=== PATIENT | male | born 1985 | race Two or more races ===

== ENCOUNTER 2020-05-27 22:06 | Emergency (ER) | payer OTHER, SELFPAY ==
[2020-05-27 22:27] VITALS: BP 156/98; PULSE 76; RESP 16; TEMP 36.3; O2SAT 100; BMI 26.4
--- NOTE | 2020-05-27 23:42 | ECG_ITS ---
Test Reason : CHEST PAIN Blood Pressure : / mmHG Vent. Rate : 069 BPM Atrial Rate : 069 BPM P-R Int : 184 ms QRS Dur : 092 ms QT Int : 388 ms P-R-T Axes : 055 063 063 degrees QTc Int : 415 ms Normal sinus rhythm Possible Left atrial enlargement Possible Inferior infarct (cited on or before 07-MAR-2020) Abnormal ECG When compared with ECG of 07-MAR-2020 12:46, No significant change was found Referred By: Melissa Littlejohn Electronically Signed By:WOOD VERGARA MD
--- NOTE | 2020-05-27 23:42 | XR_ITS ---
EXAMINATION: XR CHEST CLINICAL INFORMATION: Dizziness and elevated blood pressure COMPARISON: 07/06/2017 TECHNIQUE: 2 views of the chest were obtained. FINDINGS: The lungs are clear with no focal consolidation. No evidence of pneumothorax, pulmonary edema, or pleural effusions. The cardiomediastinal silhouette is unremarkable. No acute osseous findings. XR/XR chest 2V IMPRESSION: No acute cardiopulmonary findings.
--- NOTE | 2020-05-27 23:43 | CT_ITS ---
EXAMINATION: CT HEAD WITHOUT CONTRAST CLINICAL INFORMATION: Dizziness and elevated blood pressure COMPARISON: 03/05/2016 TECHNIQUE: Contiguous axial imaging was performed from the skull base to vertex without intravenous administration of contrast. This CT examination was performed using dose optimization techniques as appropriate, variously including the following: *Automated exposure control *Adjustment of mA and/or kV according to patient size (this includes techniques or standardized protocols for targeted exams where dose is matched to indication/reason for exam; i.e. extremities or head) *Use of iterative reconstruction technique DLP: 723 mGy-cm FINDINGS: There is no evidence of acute intracranial hemorrhage or territorial infarction. No abnormal mass effect or midline shift is seen. Barrientos to white matter differentiation is well preserved. No extra-axial fluid collections are identified. The ventricles are normal in size. Redemonstrated suspected arachnoid cyst in the posterior fossa. The osseous structures and soft tissues are normal. The mastoid air cells and visualized portions of the paranasal sinuses are well aerated. CT/CT head/brain wo con IMPRESSION: No acute intracranial pathology.
[2020-05-28] VITALS: BP 156/98; PULSE 76; RESP 16; TEMP 36.3; O2SAT 100
--- NOTE | 2020-05-28 00:11 | ED_ITS ---
HPI - General Adult General Chief complaint: General Medical Stated complaint: dizziness Time Seen by Provider: 05/27/20 23:35 Source: patient Mode of arrival: ambulatory Limitations: no limitations History of Present Illness HPI narrative: 34yoM c No Sig PMHx per patient presenting to the ED c c/o high blood pressure 160's/100's, dizziness, palpitations and left arm cramping x 3 days after eating salty greasy food of chicken and fries. Reports the Dizziness is worse when laying down to sitting or standing position. Denies headaches, changes in vision, CP/SOB, cough, RODGERS, abd pain, back pain, extremity swelling, calf tenderness or any other symptoms complaints or concerns at this time. Related Data Allergies Allergy/AdvReac Type Severity Reaction Status Date / Time No Known Allergies Allergy Unverified 03/13/20 17:00 [No Known Allergies*] Review of Systems Review of Systems: Constitutional : No Fever, No Chills, No Night Sweats, No Fatigue, No Malaise Eyes: No Eye Pain, No Swelling, No Redness, No Foreign Body, No Discharge, No Vision Changes Cardiovascular : + CP, No SOB, no Dyspnea on Exertion, No Orthopnea, No Edema, No extremity swelling, No Palpitations Respiratory : No Cough, No Sputum, No Wheezing, No Dyspnea Gastrointestinal : No Nausea, No Vomiting, No Diarrhea, No abdominal Pain Genitourinary : No Dysuria Musculoskeletal : No joint pain, No Myalgias, No Joint Swelling Skin : No Skin Lesions, No rash Neuro : No Weakness, No Numbness, No Paresthesias, No Loss of Consciousness, + Dizziness, No Headache Heme/Lymph: No Lymphadenopathy Yes all other systems are reviewed and are negative [facility] Past Medical History Attestation statement: The following information was validated with the patient. Medical History No known health problems Social History Social History Alcohol intake: unknown Smoking Status: Unknown if ever smoked Use of substances other than those prescribed or required for medical reasons: Unknown Advance Directives: No Advance Directives Information Provided: No Physical Exam Vital Signs: Vital Signs: Last Vital Signs Temp 97.4 F 05/28/20 00:00 Pulse 76 05/28/20 01:28 Resp 16 05/28/20 00:00 BP 139/92 H 05/28/20 01:28 Pulse Ox 100 05/28/20 00:00 Body Mass Index 26.4 vital signs have been reviewed as normal and appeared to be correct. Blood pressure normal. Heart rate normal. Respiration rate normal. Temperature normal. Oxygen saturation normal. Appearance: Alert. Oriented X3. No acute distress. Head: Normal external exam. Normocephalic. Atraumatic. Able to rotate head bilaterally. Eyes: PERRLA. EOMI. No nystagmus noted. Conjunctiva and sclera normal. Eyelids normal. Corneal reflex normal. ENT: Hearing normal. Pharynx normal. Uvula midline. tongue midline. Moist mucous membranes. Neck: Normal inspection. Neck supple. FROM. No adenopathy. No meningeal signs. CVS: Normal heart rate and rhythm. Heart sound normal. No murmurs noted. Pulses normal throughout. Respiratory: No respiratory distress. Painless inspiration. Breath sounds normal. No wheezes/rales/rhonchi noted. Chest nontender. No accessory muscle usage noted or decreased air movement noted. Abdomen: Soft and nontender. Bowel sounds normal in all 4 quadrants. No distention noted. No organomegaly noted. No visible injury noted. Back: Full range of motion noted. Skin: Skin warm and dry. Normal skin color. Normal skin turgor. No rashes/lesio ns/lacerations noted. Extremities: No lower extremity edema. Extremities exhibit normal range of mot ion. Extremities nontender. Able to shrug shoulders bilaterally and keep up against resistance. Neuro: Oriented X 3. No motor deficit. No sensory deficit. Reflexes normal. Moving all extremities. No focal motor deficits. Cranial nerves II-XI intact bilaterally. Facial strength normal. Normal cognition. Speech normal. Gait normal. Strength 5/5 throughout. No pronator drift. No tremor noted. No fasciculations noted. Muscle tone normal throughout. No asterixis noted. [id number] test normal. Heel to carmona test normal. Tandem gait normal. Does not sway with eyes open. Romberg test negative. Rapid alternating movement upper extremity normal. Rapid alternating movement lower extremity normal. No rigidity noted. NIHSS score 0. Course Course Course Narrative: 23:43pm - 34yoM c No Sig PMHx per patient presenting to the ED c c/o high blood pressure 160's/100's, dizziness, palpitations and left arm cramping x 3 days after eating salty greasy food of chicken and fries. - Concern for CVA vs ACS vs uncontrolled new onset HTN. - Plan: Labs, CT scan of brain, EKG, CXR, orthostatic vitals then Re-evaluate. Reevaluation(s) Reevaluation #1: all labs within normal limits. EKG normal sinus rhythm no acute ischemic changes noted. CT scan of brain within normal limits no acute processes noted. Chest x-ray within normal limits no acute processes noted. Patient's blood pressure at this time is 139/92. I explained to the patient that he needs to follow up with primary care provider tomorrow for recheck blood pressure and possibly his primary care provider starting him on blood pressure medication. Along with instructions to return if any new or worsening symptoms. Patient understands agrees with this plan. Time: 01:30 Medical Decision Making Lab Data Result diagrams: 05/28/20 00:15 05/28/20 00:15 Labs: Lab Results 05/28/20 05/28/20 05/28/20 Range/Units 00:15 00:15 00:15 WBC 6.5 (4.8-10.8) X10*3/uL RBC 4.78 (4.60-5.80) X10*6/uL Hgb 15.2 (14.0-18.0) g/dl Hct 43.9 (42-52) % MCV 91.8 (80-98) fL MCH 31.8 (27.0-33.0) pg MCHC 34.6 (31.0-36.0) g/dl RDW 12.3 (11.0-16.0) % Plt Count 260 (160-400) X10*3/uL MPV 10.0 (9.4-12.4) fL Immature Gran % (Auto) 0.2 (0.0-0.4) % Neut % (Auto) 48.0 (45-73) % Lymph % (Auto) 42.6 H (20-40) % [place] % (Auto) 6.7 (2-11) % Eos % (Auto) 1.9 (0-4) % Baso % (Auto) 0.6 (0-2) % Lymph # (Auto) 2.8 (1.2-4.9) X10*3/uL [place] # (Auto) 0.4 (0.1-1.2) X10*3/uL Eos # (Auto) 0.1 (0.0-0.4) X10*3/uL Baso # (Auto) 0.0 (0.0-0.2) X10*3/uL Abs Immat Gran (auto) 0.01 (0.00-0.03) X10*3/uL Absolute Neuts (auto) 3.1 (2.0-8.3) X10*3/uL Absolute Nucleated RBC 0.000 (0.0-0.012) X10*3/uL Nucleated RBC % (auto) 0.0 (0.0-0.2) /100WBC PT 12.7 (10.8-13.0) SEC INR 1.1 (0.9-1.1) D-Dimer < 200 NG/ML Sodium 140 (135-145) mmol/L Potassium 3.8 (3.3-5.1) mmol/l Chloride 104 (96-108) mmol/L Carbon Dioxide 27 (22-29) mmol/L Anion Gap 13 (12-20) BUN 9 (9-16) mg/dL Creatinine 0.79 (0.5-1.4) mg/dL Estim Creat Clear Calc 137.6 Estimated GFR > 60 Random Glucose 107 (60-115) mg/dL Calcium 9.2 (8.4-10.2) mg/dL Magnesium 2.1 (1.6-2.6) mg/dL Total Bilirubin 0.9 (0.0-1.0) mg/dL Direct Bilirubin 0.3 (0.0-0.5) mg/dL AST 26 (5-37) U/L ALT 30 (0-40) U/L Alkaline Phosphatase 87 (39-117) U/L Troponin I High Sens (<3.5-35.0) ng/L Total Protein 7.2 (6.5-8.0) g/dL Albumin 4.6 (3.5-5.0) g/dL 05/28/20 Range/Units 00:15 WBC (4.8-10.8) X10*3/uL RBC (4.60-5.80) X10*6/uL Hgb (14.0-18.0) g/dl Hct (42-52) % MCV (80-98) fL MCH (27.0-33.0) pg MCHC (31.0-36.0) g/dl RDW (11.0-16.0) % Plt Count (160-400) X10*3/uL MPV (9.4-12.4) fL Immature Gran % (Auto) (0.0-0.4) % Neut % (Auto) (45-73) % Lymph % (Auto) (20-40) % [place] % (Auto) (2-11) % Eos % (Auto) (0-4) % Baso % (Auto) (0-2) % Lymph # (Auto) (1.2-4.9) X10*3/uL [place] # (Auto) (0.1-1.2) X10*3/uL Eos # (Auto) (0.0-0.4) X10*3/uL Baso # (Auto) (0.0-0.2) X10*3/uL Abs Immat Gran (auto) (0.00-0.03) X10*3/uL Absolute Neuts (auto) (2.0-8.3) X10*3/uL Absolute Nucleated RBC (0.0-0.012) X10*3/uL Nucleated RBC % (auto) (0.0-0.2) /100WBC PT (10.8-13.0) SEC INR (0.9-1.1) D-Dimer NG/ML Sodium (135-145) mmol/L Potassium (3.3-5.1) mmol/l Chloride (96-108) mmol/L Carbon Dioxide (22-29) mmol/L Anion Gap (12-20) BUN (9-16) mg/dL Creatinine (0.5-1.4) mg/dL Estim Creat Clear Calc Estimated GFR Random Glucose (60-115) mg/dL Calcium (8.4-10.2) mg/dL Magnesium (1.6-2.6) mg/dL Total Bilirubin (0.0-1.0) mg/dL Direct Bilirubin (0.0-0.5) mg/dL AST (5-37) U/L ALT (0-40) U/L Alkaline Phosphatase (39-117) U/L Troponin I High Sens < 3.5 (<3.5-35.0) ng/L Total Protein (6.5-8.0) g/dL Albumin (3.5-5.0) g/dL Imaging Data Chest x-ray: Attestation: I personally reviewed and interpreted this imaging study as follows: Radiologist's impression: IMPRESSION: No acute cardiopulmonary findings. CT scan - head: Attestation: I personally reviewed and interpreted this imaging study as follows: Radiologist's impression: IMPRESSION: No acute intracranial pathology. ECG Data Attestation: I personally reviewed and interpreted this ECG as follows: Interpretation: Normal sinus rhythm with a ventricular rate of 69 with left atrial enlargement nonspecific ST changes. No acute ischemic changes noted. Similar when compared to prior on 03/07/2020 Discharge Plan Discharge Clinical Impression: Hypertension Patient Disposition: Home, Self-Care Instructions: Heart Healthy Diet (ED), Hypertension (ED) Referrals: Kelsi Huddleston MD [Primary Care Provider] - 1 day ( for recheck blood pressure and possibly starting blood pressure medication) Print Language: Afghan
[2020-05-28 00:24] LABS: MANUAL DIFF FLAG NO
[2020-05-28 00:28] LABS: Basophils Percent Auto 0.6 % (0-2); Eosinophils Absolute Auto 0.1 X10*3/uL (0.0-0.4); Eosinophils Percent Auto 1.9 % (0-4); Hematocrit 43.9 % (42-52); Hemoglobin 15.2 g/dl (14.0-18.0); Imm Gran Abs Auto 0.01 X10*3/uL (0.00-0.03); Imm Gran Pct Auto 0.2 % (0.0-0.4); Lymphocytes Absolute Auto 2.8 X10*3/uL (1.2-4.9); Lymphocytes Percent Auto 42.6 % (20-40); Mean Corpuscular HGB Conc 34.6 g/dl (31.0-36.0); Mean Corpuscular Hemoglobin 31.8 pg (27.0-33.0); Mean Corpuscular Volume 91.8 fL (80-98); Monocytes Absolute Auto 0.4 X10*3/uL (0.1-1.2); Monocytes Percent Auto 6.7 % (2-11); Neutrophils Absolute Auto 3.1 X10*3/uL (2.0-8.3); Platelet Count 260 X10*3/uL (160-400); Red Blood Count 4.78 X10*6/uL (4.60-5.80); Red Cell Distribution Width 12.3 % (11.0-16.0); White Blood Count 6.5 X10*3/uL (4.8-10.8)
[2020-05-28 00:58] VITALS: BP 136/90; PULSE 68
[2020-05-28 01:03] LABS: Alanine Aminotransferase 30 U/L (0-40); Albumin Level 4.6 g/dL (3.5-5.0); Alkaline Phosphatase 87 U/L (39-117); Anion Gap 13 (12-20); Aspartate Amino Transferase 26 U/L (5-37); Bilirubin Direct 0.3 mg/dL (0.0-0.5); Bilirubin Total 0.9 mg/dL (0.0-1.0); Blood Urea Nitrogen 9 mg/dL (9-16); Calcium 9.2 mg/dL (8.4-10.2); Carbon Dioxide 27 mmol/L (22-29); Chloride 104 mmol/L (96-108); Creatinine Clr Calc Pharmacy 137.6; Estimated Glomerular Filt Rate > 60; Glucose Random 107 mg/dL (60-115); Magnesium 2.1 mg/dL (1.6-2.6); Potassium 3.8 mmol/l (3.3-5.1); Sodium 140 mmol/L (135-145); Total Protein 7.2 g/dL (6.5-8.0)
[2020-05-28 01:04] LABS: INTERNATIONAL NORM RATIO 1.1 (0.9-1.1); Prothrombin Time 12.7 SEC (10.8-13.0)
[2020-05-28 01:05] LABS: Troponin-I High Sensitivity < 3.5 ng/L (<3.5-35.0)
[2020-05-28 01:13] LABS: D Dimer < 200 NG/ML
[2020-05-28 01:27] VITALS: BP 144/99; PULSE 70
[2020-05-28 01:28] VITALS: BP 139/92; PULSE 76
== END 2020-05-28 01:59 | disposition home or self-care (01) ==
PROVIDERS: Physician Assistant Medical; Emergency Provider Student in an Organized Health Care Education/Training Program; PCP Internal Medicine
DX: I10 Essential (primary) hypertension (principal); R42 Dizziness and giddiness
CPT/HCPCS: 36415; 70450; 71046; 80048; 80076; 83735; 84484; 85025; 85379; 85610; 93005; 99284

== ENCOUNTER 2020-07-02 22:32 | Emergency (ER) | payer OTHER, SELFPAY ==
[2020-07-02 23:57] VITALS: BP 155/100; PULSE 75; RESP 18; TEMP 36.6; O2SAT 99
--- NOTE | 2020-07-03 | ECG_ITS ---
Test Reason : CHEST PAIN Blood Pressure : / mmHG Vent. Rate : 071 BPM Atrial Rate : 071 BPM P-R Int : 162 ms QRS Dur : 090 ms QT Int : 396 ms P-R-T Axes : -02 053 043 degrees QTc Int : 430 ms Normal sinus rhythm Possible Inferior infarct (cited on or before 07-MAR-2020) Abnormal ECG When compared with ECG of 28-MAY-2020 00:47, No significant change was found Referred By: Luli Thomas Electronically Signed By:Quan Gannon
[2020-07-03 02:26] VITALS: BP 146/100; PULSE 74; RESP 16; TEMP 36.5; O2SAT 98; BMI 24.5
--- NOTE | 2020-07-03 02:55 | XR_ITS ---
EXAMINATION: XR CHEST CLINICAL INFORMATION: Chest pain COMPARISON: 05/27/2020 TECHNIQUE: Frontal view of the chest was obtained. FINDINGS: Cardiac leads overlie the chest. The lungs are well expanded. There is no focal consolidation, edema, or effusion. No pneumothorax. The cardiomediastinal silhouette is within normal limits. No acute osseous abnormality. XR/XR chest 1V IMPRESSION: Clear lungs.
[2020-07-03] MEDS: Lidocaine HCl Viscous 2 % 15 ML SOLUTION 10 ML MUCOUS MEM (03:06)
[2020-07-03] MEDS: Magnesium Hydrox/Alum Hydrox 30 ML ORAL.SUSP PO ×2 (03:06)
--- NOTE | 2020-07-03 03:51 | PC.NURSE ---
pt up to restroom for urine sample to lab. Pt was resting in stretcher, wakes to verbal stimuli, respirations easy, n/l. skin w/d.
--- NOTE | 2020-07-03 04:22 | ED_ITS ---
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 Patient denies any associated symptoms such as dizziness, nausea, diaphoresis during these episodes. Otherwise, he denies fevers, chills, shortness of breath, GI symptoms and denies any history of acid reflux. Patient is currently asymptomatic. Related Data Allergies Allergy/AdvReac Type Severity Reaction Status Date / Time No Known Allergies Allergy Unverified 03/13/20 17:00 [No Known Allergies*] Review of Systems Review of Systems: Pertinent positives and negatives as stated in HPI 10 point review systems is otherwise negative. [facility] Past Medical History Source: nursing notes reviewed Medical History No known health problems Social History Social History Alcohol intake: unknown Smoking Status: Unknown if ever smoked Advance Directives: No Advance Directives Information Provided: No Physical Exam Vital Signs: Vital Signs: Last Vital Signs Temp 97.7 F 07/03/20 02:26 Pulse 74 07/03/20 02:26 Resp 16 07/03/20 02:26 BP 146/100 H 07/03/20 02:26 Pulse Ox 98 07/03/20 02:26 Body Mass Index 24.5 VITAL SIGNS: Reviewed. GENERAL: Well developed, well nourished, in no acute distress. OROPHARYNX: no oral lesions noted, posterior pharynx clear NECK: Supple, no adenopathy LUNGS: Normal breath sounds. No adventitious sounds or accessory muscle use. SpO2<98> CARDIOVASCULAR: Regular rate and rhythm without noted murmurs, no JVD or lower extremity edema. ABDOMEN: Soft, non-tender, non-distended with bowel sounds. No rigidity. No guarding. No palpable masses or hernias noted NEUROLOGIC: Alert and oriented x 4. Strength and sensation to light touch were grossly intact x 4. Course Course Course Narrative: This is a 34-year-old male with history and clinical presentation most consistent with likely neuropathy associated with extremity position while working and possible costochondritis but will rule out cardiopulmonary etiologies. On review of all investigations there are no acute findings to better explain patient's symptoms. All results findings were discussed with him at bedside and he was encouraged to continue follow-up with his primary care provider. MDM - Chest Pain Lab Data Result diagrams: 07/03/20 04:03 07/03/20 04:03 Labs: Lab Results 07/03/20 07/03/20 07/03/20 Range/Units 03:55 03:55 04:03 WBC 6.4 (4.8-10.8) X10*3/uL RBC 5.12 (4.60-5.80) X10*6/uL Hgb 16.3 (14.0-18.0) g/dl Hct 48.0 (42-52) % MCV 93.8 (80-98) fL MCH 31.8 (27.0-33.0) pg MCHC 34.0 (31.0-36.0) g/dl RDW 12.0 (11.0-16.0) % Plt Count 269 (160-400) X10*3/uL MPV 10.1 (9.4-12.4) fL Immature Gran % (Auto) 0.2 (0.0-0.4) % Neut % (Auto) 48.7 (45-73) % Lymph % (Auto) 42.4 H (20-40) % [place] % (Auto) 6.0 (2-11) % Eos % (Auto) 1.9 (0-4) % Baso % (Auto) 0.8 (0-2) % Lymph # (Auto) 2.7 (1.2-4.9) X10*3/uL [place] # (Auto) 0.4 (0.1-1.2) X10*3/uL Eos # (Auto) 0.1 (0.0-0.4) X10*3/uL Baso # (Auto) 0.1 (0.0-0.2) X10*3/uL Abs Immat Gran (auto) 0.01 (0.00-0.03) X10*3/uL Absolute Neuts (auto) 3.1 (2.0-8.3) X10*3/uL Absolute Nucleated RBC 0.000 (0.0-0.012) X10*3/uL Nucleated RBC % (auto) 0.0 (0.0-0.2) /100WBC Sodium (135-145) mmol/L Potassium (3.3-5.1) mmol/l Chloride (96-108) mmol/L Carbon Dioxide (22-29) mmol/L Anion Gap (12-20) BUN (9-16) mg/dL Creatinine (0.5-1.4) mg/dL Estim Creat Clear Calc Estimated GFR Random Glucose (60-115) mg/dL Calcium (8.4-10.2) mg/dL Total Bilirubin (0.0-1.0) mg/dL AST (5-37) U/L ALT (0-40) U/L Alkaline Phosphatase (39-117) U/L Troponin I High Sens (<3.5-35.0) ng/L Total Protein (6.5-8.0) g/dL Albumin (3.5-5.0) g/dL Lipase (8-78) U/L Urine Color DARK YELLOW Urine Appearance CLEAR Urine pH 6.5 (5.0-8.0) Ur Specific [place] 1.025 (1.005-1.025) Urine Protein NEG (NEG-TRACE) MG/DL Urine Glucose (UA) NEG (NEG) MG/DL Urine Ketones NEG (NEG) MG/DL Urine Blood NEG (NEG) Urine Nitrite NEG (NEG) Ur Leukocyte Esterase NEG (NEG) Urine Opiates Screen Not Detected (Not Detect) Ur Barbiturates Screen Not Detected (Not Detect) Ur Phencyclidine Scrn Not Detected (Not Detect) Ur Amphetamines Screen Not Detected (Not Detect) U Benzodiazepines Scrn Not Detected (Not Detect) Urine Cocaine Screen Not Detected (Not Detect) U Marijuana (THC) Screen Not Detected (Not Detect) Ethyl Alcohol mg/dL 07/03/20 07/03/20 07/03/20 Range/Units 04:03 04:03 04:03 WBC (4.8-10.8) X10*3/uL RBC (4.60-5.80) X10*6/uL Hgb (14.0-18.0) g/dl Hct (42-52) % MCV (80-98) fL MCH (27.0-33.0) pg MCHC (31.0-36.0) g/dl RDW (11.0-16.0) % Plt Count (160-400) X10*3/uL MPV (9.4-12.4) fL Immature Gran % (Auto) (0.0-0.4) % Neut % (Auto) (45-73) % Lymph % (Auto) (20-40) % [place] % (Auto) (2-11) % Eos % (Auto) (0-4) % Baso % (Auto) (0-2) % Lymph # (Auto) (1.2-4.9) X10*3/uL [place] # (Auto) (0.1-1.2) X10*3/uL Eos # (Auto) (0.0-0.4) X10*3/uL Baso # (Auto) (0.0-0.2) X10*3/uL Abs Immat Gran (auto) (0.00-0.03) X10*3/uL Absolute Neuts (auto) (2.0-8.3) X10*3/uL Absolute Nucleated RBC (0.0-0.012) X10*3/uL Nucleated RBC % (auto) (0.0-0.2) /100WBC Sodium 141 (135-145) mmol/L Potassium 4.0 (3.3-5.1) mmol/l Chloride 104 (96-108) mmol/L Carbon Dioxide 27 (22-29) mmol/L Anion Gap 14 (12-20) BUN 12 (9-16) mg/dL Creatinine 0.82 (0.5-1.4) mg/dL Estim Creat Clear Calc 132.6 Estimated GFR > 60 Random Glucose 91 (60-115) mg/dL Calcium 9.1 (8.4-10.2) mg/dL Total Bilirubin 1.0 (0.0-1.0) mg/dL AST 23 (5-37) U/L ALT 29 (0-40) U/L Alkaline Phosphatase 82 (39-117) U/L Troponin I High Sens < 3.5 (<3.5-35.0) ng/L Total Protein 7.4 (6.5-8.0) g/dL Albumin 4.5 (3.5-5.0) g/dL Lipase 11 (8-78) U/L Urine Color Urine Appearance Urine pH (5.0-8.0) Ur Specific [place] (1.005-1.025) Urine Protein (NEG-TRACE) MG/DL Urine Glucose (UA) (NEG) MG/DL Urine Ketones (NEG) MG/DL Urine Blood (NEG) Urine Nitrite (NEG) Ur Leukocyte Esterase (NEG) Urine Opiates Screen (Not Detect) Ur Barbiturates Screen (Not Detect) Ur Phencyclidine Scrn (Not Detect) Ur Amphetamines Screen (Not Detect) U Benzodiazepines Scrn (Not Detect) Urine Cocaine Screen (Not Detect) U Marijuana (THC) Screen (Not Detect) Ethyl Alcohol < 10 mg/dL ECG Data ECG #1: Attestation: I personally reviewed and interpreted this ECG as follows: Prior ECG tracings: available for review (05/28/2022 no acute changes on comparison) Interpretation: Sinus rhythm, HR-71, no evidence of acute ischemia, PA/QRS/QTC are within normal limits. Discharge Plan Discharge Clinical Impression: Atypical chest pain Patient Disposition: Home, Self-Care Instructions: Costochondritis (ED) Additional Instructions: 1. Tylenol 1000 mg, orally, every 6 hours as needed for pain control. Do not exceed 4000 mg within 24 hours. 2. Ibuprofen 400 mg, orally with milk or food, every 6 hours as needed for pain control. You may use this in combination with Tylenol for it improved effect. 3. Increase fluid hydration especially with water. 4. Please continue with primary care provider scheduled appointment. The patient and/or family acknowledge understanding of results (as applicable), diagnosis, treatment plan, need for follow up, and symptoms that should prompt a return to the emergency room. Referrals: Physician,Unknown [Primary Care Provider] - 2 days (Re-evaluation) Print Language: Yakut
[2020-07-03 04:38] LABS: Basophils Absolute Auto 0.1 X10*3/uL (0.0-0.2); Basophils Percent Auto 0.8 % (0-2); Eosinophils Absolute Auto 0.1 X10*3/uL (0.0-0.4); Eosinophils Percent Auto 1.9 % (0-4); Hemoglobin 16.3 g/dl (14.0-18.0); Imm Gran Abs Auto 0.01 X10*3/uL (0.00-0.03); Imm Gran Pct Auto 0.2 % (0.0-0.4); Lymphocytes Absolute Auto 2.7 X10*3/uL (1.2-4.9); Lymphocytes Percent Auto 42.4 % (20-40); MANUAL DIFF FLAG NO; Mean Corpuscular Hemoglobin 31.8 pg (27.0-33.0); Mean Corpuscular Volume 93.8 fL (80-98); Mean Platelet Volume 10.1 fL (9.4-12.4); Monocytes Absolute Auto 0.4 X10*3/uL (0.1-1.2); Neutrophils Absolute Auto 3.1 X10*3/uL (2.0-8.3); Neutrophils Percent Auto 48.7 % (45-73); Platelet Count 269 X10*3/uL (160-400); Red Blood Count 5.12 X10*6/uL (4.60-5.80); White Blood Count 6.4 X10*3/uL (4.8-10.8)
[2020-07-03 04:40] LABS: Glucose Urine UA NEG (NEG); Leukocyte Esterase Urine NEG (NEG); Nitrite Urine NEG (NEG); PH 6.5 (5.0-8.0); Specific Gravity - Urine 1.025 (1.005-1.025); Urine Blood NEG (NEG); Urine Ketones NEG (NEG); Urine Protein NEG (NEG-TRACE)
[2020-07-03 04:43] LABS: Appearance Urine CLEAR; Color Urine DARK YELLOW; UACC Culture Trigger NO
[2020-07-03 04:58] LABS: Ethanol < 10 mg/dL
[2020-07-03 05:01] LABS: Alanine Aminotransferase 29 U/L (0-40); Albumin Level 4.5 g/dL (3.5-5.0); Alkaline Phosphatase 82 U/L (39-117); Anion Gap 14 (12-20); Aspartate Amino Transferase 23 U/L (5-37); Blood Urea Nitrogen 12 mg/dL (9-16); Calcium 9.1 mg/dL (8.4-10.2); Carbon Dioxide 27 mmol/L (22-29); Chloride 104 mmol/L (96-108); Creatinine Clr Calc Pharmacy 132.6; Estimated Glomerular Filt Rate > 60; Glucose Random 91 mg/dL (60-115); Lipase 11 U/L (8-78); Sodium 141 mmol/L (135-145); Total Protein 7.4 g/dL (6.5-8.0)
[2020-07-03 05:07] LABS: Troponin-I High Sensitivity < 3.5 ng/L (<3.5-35.0)
[2020-07-03 05:12] LABS: Amphetamine Screen Urine Not Detected (Not Detect); Barbiturates, Urine Not Detected (Not Detect); Benzodiazepines Screen Urine Not Detected (Not Detect); Cannabinoid Screen Urine Not Detected (Not Detect); Cocaine Screen Urine Not Detected (Not Detect); Opiate Screen Urine Not Detected (Not Detect); Phencyclidine Screen Urine Not Detected (Not Detect)
== END 2020-07-03 05:48 | disposition home or self-care (01) ==
PROVIDERS: Emergency Provider Student in an Organized Health Care Education/Training Program
DX: R07.89 Other chest pain (principal); J45.909 Unspecified asthma, uncomplicated
CPT/HCPCS: 36415; 71045; 80053; 80307; 80320; 81003; 83690; 84484; 85025; 93005; 99283; 99284

== ENCOUNTER 2021-05-12 09:09 | Outpatient (REF) | payer OTHER, SELFPAY ==
--- NOTE | ~2021-05-12 | US_ITS ---
EXAMINATION: US ABDOMEN COMPLETE CLINICAL INFORMATION: Right upper quadrant pain for 2 weeks. Rule out gallbladder etiology. COMPARISON: Renal ultrasound 03/13/2018. CT abdomen and pelvis 07/01/2016. TECHNIQUE: Real-time imaging of the abdominal viscera. Today's examination is mildly limited secondary to overlying bowel gas. FINDINGS: PANCREAS: The pancreas is partially obscured by overlying bowel gas. Visualized portions of pancreas are normal in appearance. ABDOMINAL AORTA: The proximal, mid, and distal segments are normal in caliber. INFERIOR VENA CAVA: Visualized portions are normal. LIVER: The liver is normal in size. The liver contour is normal. Liver echogenicity is diffusely increased. No focal hepatic lesion. There is no intrahepatic biliary duct dilatation seen. GALLBLADDER: Normal. The gallbladder is physiologically distended without evidence of stones, sludge, polyps, wall thickening or pericholecystic fluid. Technologist reports a positive sonographic Shannon's sign. COMMON BILE DUCT: Normal in caliber measuring 0.2 cm in diameter. RIGHT KIDNEY: The kidney measures 11.4 cm in maximum dimension. No renal calculi or hydronephrosis. Several small cysts are noted within the right kidney, largest measuring 1.6 cm. LEFT KIDNEY: The kidney measures 10.6 cm in maximum dimension. Therefore millimeter nonobstructing lower pole calculus. No hydronephrosis. A few small cysts are noted within the left kidney, largest measures approximately 1.4 cm. SPLEEN: Normal. The spleen measures 8.6 cm in maximum dimension. FREE FLUID: None. US/US abdomen complete IMPRESSION: 1. Normal sonographic appearance of the gallbladder, however, the technologist reports a positive sonographic Shannon's sign. Clinical correlation recommended. 2. Diffusely increased liver echogenicity suggesting hepatic steatosis. Correlation with liver enzymes recommended. 3. Small bilateral renal cysts. 4. 4 mm nonobstructing left renal calculus without hydronephrosis.
== END 2021-05-12 09:10 | disposition home or self-care (01) ==
LOC: HO.US 09:09
PROVIDERS: Visit Provider Physician Assistant
DX: R10.11 Right upper quadrant pain (principal)
CPT/HCPCS: 76700

== ENCOUNTER 2021-07-11 20:25 | Emergency (ER) | payer OTHER, SELFPAY ==
--- NOTE | 2021-07-11 | ECG_ITS ---
Test Reason : DIZZINESS Blood Pressure : / mmHG Vent. Rate : 081 BPM Atrial Rate : 081 BPM P-R Int : 148 ms QRS Dur : 088 ms QT Int : 384 ms P-R-T Axes : 000 044 042 degrees QTc Int : 446 ms Normal sinus rhythm Cannot exclude Inferior infarct (cited on or before 07-MAR-2020) Abnormal ECG When compared with ECG of 03-JUL-2020 02:32, No significant change was found Referred By: Generic ED Physician Electronically Signed By:ADELA CHILD
[2021-07-11 21:05] VITALS: BP 149/99; PULSE 80; RESP 18; TEMP 36.9; O2SAT 98; BMI 27.8
[2021-07-11 21:56] LABS: Anion Gap 15 (12-20); Blood Urea Nitrogen 13 mg/dL (9-16); Calcium 9.5 mg/dL (8.4-10.2); Carbon Dioxide 24 mmol/L (22-29); Chloride 102 mmol/L (96-108); Creatinine Clr Calc Pharmacy 132.4; Estimated Glomerular Filt Rate > 60; Glucose Random 97 mg/dL (60-115); Potassium 3.9 mmol/L (3.3-5.1); Sodium 137 mmol/L (135-145)
[2021-07-11 21:59] LABS: Basophils Percent Auto 0.5 % (0-2); Eosinophils Absolute Auto 0.1 X10*3/uL (0.0-0.4); Hematocrit 44.3 % (42.0-52.0); Hemoglobin 15.7 g/dl (14.0-18.0); Imm Gran Abs Auto 0.01 X10*3/uL (0.00-0.03); Imm Gran Pct Auto 0.2 % (0.0-0.4); Lymphocytes Absolute Auto 2.1 X10*3/uL (1.2-4.9); Lymphocytes Percent Auto 35.7 % (20-40); MANUAL DIFF FLAG SCAN; Mean Corpuscular HGB Conc 35.4 g/dl (31.0-36.0); Mean Corpuscular Hemoglobin 31.7 pg (27.0-33.0); Mean Corpuscular Volume 89.3 fL (80.0-98.0); Mean Platelet Volume 11.1 fL (9.4-12.4); Monocytes Absolute Auto 0.3 X10*3/uL (0.1-1.2); Monocytes Percent Auto 5.8 % (2-11); Neutrophils Absolute Auto 3.3 x10*3/uL (2.0-8.3); Neutrophils Percent Auto 56.8 % (45-73); PLT CLUMP 1; Red Blood Count 4.96 X10*6/uL (4.60-5.80); Red Cell Distribution Width 12.2 % (11.0-16.0); SCAN SMEAR FLAG 1
[2021-07-11 22:04] LABS: Troponin-I High Sensitivity < 3.5 ng/L (<3.5-35.0)
[2021-07-11 22:18] LABS: SLIDE REVIEW VERIFIED; White Blood Count 5.8 X10*3/uL (4.8-10.8)
[2021-07-12 00:45] LABS: COVID-19 Test Negative (Negative)
--- NOTE | 2021-07-12 00:54 | PC.NURSE ---
at bedside for primary eval.
--- NOTE | 2021-07-12 01:04 | PC.NURSE ---
at bedside for primary eval.
--- NOTE | 2021-07-12 01:16 | ED.DIZZY ---
HPI - Dizziness General Chief Complaint: Dizziness Stated Complaint: DIZZINESS/HYPERTENSION Time Seen by Provider: 07/12/21 00:20 Source: patient Mode of arrival: ambulatory Limitations: no limitations History of Present Illness HPI Narrative: 35-year-old male who presents emergency department for evaluation of headache, dizziness and elevated blood pressure. The patient states that over the last 3-4 days he has been developing headaches associated with dizziness, chills numbness in his fingers and feet. States that 2 days prior he went to [facility] and was seen in the emergency department and diagnosed with high blood pressure and high cholesterol. He was started on amlodipine 5 mg once a day. The patient states that he is a [employer] and often has 10-12 client's per day and often does not eat or drink fluid until the end of the day. He states that today while he was at his [employer] shop he developed a headache which she describes as a pressure in the back of his head. The headache was mild to moderate intensity. He states that he then felt dizzy and lightheaded. He then developed numbness and tingling in his hands and feet. He felt like his arms and legs were getting weak and he was going to pass out. He checked his blood pressure at his [employer] shop and his systolic blood pressures for greater than 140 and his diastolic blood pressures were greater than 100. He then decided to take 1 of the amlodipine pills that were prescribed from [facility] Emergency Department. He states that this did not make you feel any better therefore came to the emergency department to be seen. He states that he has been getting intermittent headaches for several days he has had similar headaches in the past. These headaches will last 10-15 minutes. States he does give very anxious when he gets these headaches as well. The patient states that he does have obstructive sleep apnea knee does wear a CPAP machine but he states that he is off the non compliant with the machine. Related Data Previous Rx's Medication Instructions Recorded lisinopril 10 1 tab PO DAILY 30 Days #30 tab 07/28/20 mg-hydrochlorothiazide 12.5 mg tablet omeprazole 20 mg capsule,delayed 20 mg PO DAILY 20 Days #20 cap 04/09/21 release Allergies Allergy/AdvReac Type Severity Reaction Status Date / Time No Known Allergies Allergy Verified 04/09/21 11:38 [No Known Allergies*] Review of Systems Review of Systems: Yes all other systems are reviewed and are negative [facility] Past Medical History Medical History Asthma Fatty liver Hypercholesterolemia Migraine Obstructive sleep apnea Renal calculi Vitamin B12 deficiency Vitamin D deficiency Surgical History History of tooth extraction Family History Family History Mother Hypertension Father Hypertension Son In good health Son In good health Son In good health Sister In good health Brother No problems noted. Social History Social History Housing: House Alcohol intake: unknown Patient Tobacco Use Status: Never used Tobacco Tobacco use type: Cigarette e-Cigarette/Vaping Use: Never Used Advance Directives: No Physical Exam Vital Signs: Vital Signs: Last Vital Signs Temp 98.4 F 07/11/21 21:05 Pulse 80 07/11/21 21:05 Resp 18 07/11/21 21:05 BP 149/99 H 07/11/21 21:05 Pulse Ox 98 07/11/21 21:05 BMI result Body Mass Index 27.8 Const: General: cooperative and no acute distress Orientation/consciousness: oriented to person and oriented to place Limitations: no limitations HENMT: Head: Yes normal to inspection, Yes normocephalic and Yes atraumatic Ears: external ears normal General nose exam: Normal external nose present Face and sinus: Yes normal facial exam Mouth: Normal oral and palatal mucosa present Throat: Yes posterior oropharynx normal Eyes: General: appearance normal, both eyes and all related structures Pupils: Equal, round and reactive pupils present Neck: Neck: Yes normal visual inspection, Yes no lymphadenopathy, Yes trachea midline and Yes supple Chest: Chest palpation & inspection: normal inspection of the chest and normal palpation of entire chest wall Resp: Effort & Inspection: normal respiratory effort and able to speak in complete sentences Auscultation: clear to auscultation bilaterally Cardio: Rate: regular rate Rhythm: regular rhythm Heart sounds: S1 normal heart sound present, S2 normal heart sound present and no murmurs GI: Inspection: Yes normal to inspection Palpation (GI): Soft to palpation, nontender and no guarding Auscultation: normal bowel sounds : General: Yes no CVA tenderness Back/Spine/Pelvis: Back: no CVA tenderness Skin: General skin exam: no rashes or lesions noted Neuro: General: oriented to person and oriented to place Cranial nerves: Yes CN's II-XII intact bilaterally and Yes Equal, round and reactive pupils present Cognition (Neuro): normal cognition Motor exam (neuro): 5/5 motor strength present throughout Extrem: General: Yes normal to inspection Psych: Appearance: grossly normal Speech and movement: Normal speech and movement present Affect: normal affect Attitude: cooperative Thought process: Normal thought process present Thought content: Normal thought content present Course Course Course Narrative: 35-year-old male who presents emergency department for evaluation of episodes headaches, dizziness, numbness in his hands and feet and elevated blood pressures. Patient was seen at [facility] Emergency Department 2 days prior and was diagnosed with hypertension and started on amlodipine 5 mg once a day and he was also told that he had high cholesterol. Patient's initial vital signs here in the emergency department did reveal an elevated blood pressure of 149/99 otherwise were unremarkable. The patient's exam was unremarkable. This time I believe that the patient is having benign headaches possibly related to not using his CPAP machine. The headaches I think I then triggering hyperventilation syndrome and may be also contributing to his high blood pressure. However the patient may also essential hypertension I did discuss this with him. I told him to continue taking the amlodipine as prescribed by [facility]. He is to take his blood pressure 3 times a week for the next 2 weeks and you should discuss these blood pressure medications with his PCP. Is also advised to take Tylenol for his headaches, use his CPAP machine every night and to make sure that he eats and drinks throughout the day when he is working his [employer] shop. Patient was given printed and verbal instructions and discharged home. MDM - Dizziness Lab Data Result diagrams: 07/11/21 21:37 07/11/21 21:37 Labs: Lab Results 07/11/21 07/11/21 07/11/21 Range/Units 21:36 21:37 21:37 WBC 5.8 (4.8-10.8) X10*3/uL RBC 4.96 (4.60-5.80) X10*6/uL Hgb 15.7 (14.0-18.0) g/dl Hct 44.3 (42.0-52.0) % MCV 89.3 (80.0-98.0) fL MCH 31.7 (27.0-33.0) pg MCHC 35.4 (31.0-36.0) g/dl RDW 12.2 (11.0-16.0) % Plt Count TNP MPV 11.1 (9.4-12.4) fL Immature Gran % (Auto) 0.2 (0.0-0.4) % Neut % (Auto) 56.8 (45-73) % Lymph % (Auto) 35.7 (20-40) % [place] % (Auto) 5.8 (2-11) % Eos % (Auto) 1.0 (0-4) % Baso % (Auto) 0.5 (0-2) % Lymph # (Auto) 2.1 (1.2-4.9) X10*3/uL [place] # (Auto) 0.3 (0.1-1.2) X10*3/uL Eos # (Auto) 0.1 (0.0-0.4) X10*3/uL Baso # (Auto) 0.0 (0.0-0.2) X10*3/uL Abs Immat Gran (auto) 0.01 (0.00-0.03) X10*3/uL Absolute Neuts (auto) 3.3 (2.0-8.3) x10*3/uL Absolute Nucleated RBC 0.000 (0.0-0.012) X10*3/uL Nucleated RBC % (auto) 0.0 (0.0-0.2) /100WBC Smear Tech's Comments VERIFIED Sodium 137 (135-145) mmol/L Potassium 3.9 (3.3-5.1) mmol/L Chloride 102 (96-108) mmol/L Carbon Dioxide 24 (22-29) mmol/L Anion Gap 15 (12-20) BUN 13 (9-16) mg/dL Creatinine 0.88 (0.5-1.4) mg/dL Estim Creat Clear Calc 132.4 Estimated GFR > 60 Random Glucose 97 (60-115) mg/dL Calcium 9.5 (8.4-10.2) mg/dL Troponin I High Sens < 3.5 (<3.5-35.0) ng/L COVID-19 (OCTAVIO) (Negative) COVID-19 Clin Com 07/12/21 Range/Units 00:20 WBC (4.8-10.8) X10*3/uL RBC (4.60-5.80) X10*6/uL Hgb (14.0-18.0) g/dl Hct (42.0-52.0) % MCV (80.0-98.0) fL MCH (27.0-33.0) pg MCHC (31.0-36.0) g/dl RDW (11.0-16.0) % Plt Count MPV (9.4-12.4) fL Immature Gran % (Auto) (0.0-0.4) % Neut % (Auto) (45-73) % Lymph % (Auto) (20-40) % [place] % (Auto) (2-11) % Eos % (Auto) (0-4) % Baso % (Auto) (0-2) % Lymph # (Auto) (1.2-4.9) X10*3/uL [place] # (Auto) (0.1-1.2) X10*3/uL Eos # (Auto) (0.0-0.4) X10*3/uL Baso # (Auto) (0.0-0.2) X10*3/uL Abs Immat Gran (auto) (0.00-0.03) X10*3/uL Absolute Neuts (auto) (2.0-8.3) x10*3/uL Absolute Nucleated RBC (0.0-0.012) X10*3/uL Nucleated RBC % (auto) (0.0-0.2) /100WBC Smear Tech's Comments Sodium (135-145) mmol/L Potassium (3.3-5.1) mmol/L Chloride (96-108) mmol/L Carbon Dioxide (22-29) mmol/L Anion Gap (12-20) BUN (9-16) mg/dL Creatinine (0.5-1.4) mg/dL Estim Creat Clear Calc Estimated GFR Random Glucose (60-115) mg/dL Calcium (8.4-10.2) mg/dL Troponin I High Sens (<3.5-35.0) ng/L COVID-19 (OCTAVIO) Negative (Negative) COVID-19 Clin Com See Note Discharge Plan Discharge Clinical Impression: Headache, Hypertension, Hyperventilation Patient Disposition: Home, Self-Care Instructions: Hyperventilation (ED), Acute Headache (ED) Additional Instructions: Your blood work today was normal. Your EKG was also unremarkable. Take your blood pressure medication once in the morning as prescribed by the emergency doctor at [facility] (amlodipine 5 mg once a day). The reason to check your blood pressure at home is to give your doctor an idea of what your blood pressure does when you are not in the doctor's office. Take your blood pressure in the morning, on Mondays, Wednesdays and Tuesday and then write down these readings to discuss them with your doctor at your next visit. If you doctor decides that your blood pressure readings are high than your doctor may increase the blood pressure medication that you are taking. It often takes 1-2 months or longer to get your blood pressure under control. Lowering your blood pressure too rapidly or getting your blood pressure too low, too quickly can make you feel bad. Take Tylenol (acetaminophen) 500 mg pills, 2 pills every 4 to 6 hours as needed for your headache pain. Is important that you eat food throughout the day and you drink fluid throughout the day and this might prevent you from getting your headaches. You should also wear your CPAP machine every night since lack sleep can also cause headaches. Please return to the emergency department if you develops concerning symptoms such as severe headache, chest pain, shortness of breath, difficulty walking secondary to shortness of breath, numbness, weakness, difficulty talking. Follow-up with your doctor to discuss your blood pressure readings. Please return to the emergency department if your symptoms get worse or if you develop any new symptoms that are concerning to you. Prescriptions: No Action lisinopril-hydrochlorothiazide 10-12.5 mg tablet 1 tab PO DAILY 30 Days Qty: 30 RF: 1 omeprazole 20 mg capsule,delayed release(DR/EC) 20 mg PO DAILY 20 Days Qty: 20 RF: 0
[2021-07-12 02:00] VITALS: BP 147/103; PULSE 80; RESP 16; O2SAT 99
== END 2021-07-12 02:01 | disposition home or self-care (01) ==
PROVIDERS: Emergency Provider Emergency Medicine Emergency Medical Services
DX: R51.9 Headache, unspecified (principal); I10 Essential (primary) hypertension; R06.4 Hyperventilation; R42 Dizziness and giddiness; Z20.822 Contact with and (suspected) exposure to COVID-19; E78.5 Hyperlipidemia, unspecified; J45.909 Unspecified asthma, uncomplicated; Z79.899 Other long term (current) drug therapy
CPT/HCPCS: 36415; 80048; 84484; 85025; 87635; 93005; 99283; 99284

== ENCOUNTER 2022-04-09 14:10 | Observation (INO) | payer OTHER, SELFPAY ==
[2022-04-09] VITALS (10 sets, daily range): BP systolic 96–130; BP diastolic 59–80; PULSE 70–102; RESP 14–20; TEMP 36.4–36.7; O2SAT 99–100; BMI 26.4
--- NOTE | ~2022-04-09 | US_ITS ---
EXAMINATION: US SCROTUM CLINICAL INFORMATION: Flank pain radiating to scrotum. COMPARISON: None TECHNIQUE: A sonogram of the scrotum was performed assessing monteiro-scale appearance and color Doppler flow. Spectral Doppler analysis of the arterial and venous flow were performed in the testes bilaterally. FINDINGS: RIGHT: Right testicle measures 5.6 x 2.9 x 3.8 cm, volume 31.9 mL. No focal testicular parenchymal lesions are visualized. Spectral Doppler analysis of the arterial and venous flow is normal in the right testis. Right epididymal head is normal in size. No varicocele is seen. Trace physiologic fluid in the left scrotal sac. No nia hydrocele. Right epididymal Doppler flow is normal. LEFT: Left testicle measures 4.4 x 2.6 x 3.0 cm, volume 17.8 mL. No focal testicular parenchymal lesions are visualized. Spectral Doppler analysis of the arterial and venous flow is normal in the left testis. Left epididymal head is normal in size. No varicocele is seen. Trace physiologic fluid in the left scrotal sac. No nia hydrocele. Left epididymal Doppler flow is normal. US/US scrotum doppler IMPRESSION: Unremarkable scrotal ultrasound.
--- NOTE | ~2022-04-09 | US_ITS ---
EXAMINATION: US RETROPERITONEAL LIMITED (RENAL ONLY) CLINICAL INFORMATION: Follow-up renal stone. COMPARISON: CT abdomen pelvis 04/09/2022 TECHNIQUE: Real-time imaging of the kidneys. FINDINGS: RIGHT KIDNEY: 11.2 x 6.3 x 6.1 cm (SAG x AP x TRV). The kidney is normal in size, contour, and echogenicity. Renal cortical thickness is normal. No hydronephrosis. Benign-appearing likely benign appearing renal cysts one with a 4 mm mural calcification measuring up to 1.6 m, no follow-up imaging recommended. A previously seen punctate lower pole renal stone was not identified sonographically. LEFT KIDNEY: 11.5 x 6.1 x 6.4 cm (SAG x AP x TRV). The kidney is normal in size, contour, and echogenicity. Renal cortical thickness is normal. No focal parenchymal lesions or hydronephrosis. A 3 mm echogenic focus in the left lower pole with twinkle artifact but without associated shadowing does not have a clear correlate on the prior CT and may reflect a vascular reflector or nonradiopaque stone. Bilateral ureteral jets were identified. US/US renal BI IMPRESSION: No hydronephrosis. A 3 mm echogenic focus in the left lower pole with twinkle artifact but without associated shadowing does not have a clear correlate on the prior CT and may reflect a vascular reflector or nonradiopaque stone. A previously seen punctate right lower pole renal stone was not identified sonographically. Bilateral ureteral jets were identified.
--- NOTE | ~2022-04-09 | CT_ITS ---
EXAMINATION: CT ABDOMEN AND PELVIS WITHOUT CONTRAST CLINICAL INFORMATION: Left flank pain COMPARISON: 07/01/2016 TECHNIQUE: Multidetector volumetric imaging was performed from the superior aspect of the liver through the pubic symphysis. Sagittal and coronal reformatted images were obtained on the technologist's workstation. This CT examination was performed using dose optimization techniques as appropriate, variously including the following: *Automated exposure control *Adjustment of mA and/or kV according to patient size (this includes techniques or standardized protocols for targeted exams where dose is matched to indication/reason for exam; i.e. extremities or head) *Use of iterative reconstruction technique DLP: 618 mGy-cm FINDINGS: LUNG BASES: The visualized lung bases are unremarkable. LIVER, GALLBLADDER, AND BILIARY TREE: The liver is normal in size, shape, and attenuation. No focal hepatic lesion or biliary ductal dilatation is present. The gallbladder is unremarkable with no evidence of radiopaque gallstones, gallbladder wall thickening, or obvious pericholecystic inflammatory changes. PANCREAS: Unremarkable. SPLEEN: Unremarkable. ADRENAL GLANDS: Unremarkable. KIDNEYS AND URETERS: Tiny 2 mm nonobstructing right lower pole calyceal stone. Upper pole cortical cyst. On the left, there is moderate dilatation of the urinary collecting system down to the level of the UVJ where there is a 4 mm partially obstructing stone. No perinephric collection. BLADDER: Unremarkable. GASTROINTESTINAL TRACT: The small and large bowel are unremarkable. The appendix is unremarkable. ABDOMINAL WALL: No significant hernia is appreciated. LYMPH NODES: Normal. VASCULAR: Unremarkable. PELVIC VISCERA: Unremarkable. OSSEOUS STRUCTURES: Unremarkable. CT/CT abdomen pelvis wo IV con IMPRESSION: 4 mm partially obstructing left distal ureteral stone. Fleischner guidelines were followed.
[2022-04-09 16:12] LABS: MANUAL DIFF FLAG NO
[2022-04-09 16:18] LABS: Basophils Percent Auto 0.4 % (0-2); Eosinophils Percent Auto 0.2 % (0-4); Hematocrit 43.6 % (42.0-52.0); Hemoglobin 15.3 g/dl (14.0-18.0); Imm Gran Abs Auto 0.02 X10*3/uL (0.00-0.03); Imm Gran Pct Auto 0.2 % (0.0-0.4); Lymphocytes Absolute Auto 1.3 X10*3/uL (1.2-4.9); Lymphocytes Percent Auto 12.6 % (20-40); Mean Corpuscular HGB Conc 35.1 g/dl (31.0-36.0); Mean Corpuscular Hemoglobin 31.7 pg (27.0-33.0); Mean Corpuscular Volume 90.5 fL (80.0-98.0); Mean Platelet Volume 9.7 fL (9.4-12.4); Monocytes Absolute Auto 0.5 X10*3/uL (0.1-1.2); Neutrophils Absolute Auto 8.3 x10*3/uL (2.0-8.3); Neutrophils Percent Auto 81.6 % (45-73); Platelet Count 317 X10*3/uL (160-400); Red Blood Count 4.82 X10*6/uL (4.60-5.80); Red Cell Distribution Width 11.9 % (11.0-16.0); White Blood Count 10.2 X10*3/uL (4.8-10.8)
--- NOTE | 2022-04-09 16:25 | ECG_ITS ---
Test Reason : DIZZINESS Blood Pressure : / mmHG Vent. 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
[2022-04-09 16:39] LABS: Alanine Aminotransferase 19 U/L (0-40); Albumin Level 4.9 g/dL (3.5-5.0); Alkaline Phosphatase 103 U/L (39-117); Anion Gap 17 (12-20); Aspartate Amino Transferase 22 U/L (5-37); Bilirubin Total 0.8 mg/dL (0.0-1.0); Blood Urea Nitrogen 14 mg/dL (9-16); Calcium 9.8 mg/dL (8.4-10.2); Carbon Dioxide 21 mmol/L (22-29); Chloride 103 mmol/L (96-108); Creatinine Clr Calc Pharmacy 89.6; Estimated Glomerular Filt Rate > 60; Glucose Random 97 mg/dL (60-115); Sodium 137 mmol/L (135-145); Total Protein 7.9 g/dL (6.5-8.0)
--- NOTE | 2022-04-09 16:39 | ED.GENADULT ---
HPI - General Adult General Chief complaint: General Medical Stated complaint: KIDNEY STONE PAIN Time Seen by Provider: 04/09/22 16:25 Source: patient Mode of arrival: ambulatory Limitations: no limitations History of Present Illness HPI narrative: This is a 36-year-old male history of RAH on CPAP, GERD, uncontrolled hypertension, hypercholesterolemia, history of kidney stones presenting to the emergency department complaints of severe left-sided flank pain and low blood pressures. Patient reports that yesterday his blood pressure medication was switched from amlodipine to lisinopril. He tells me that he is also taking Flomax for kidney stones, he reports that today he got very dizzy while at work and he thinks it is because he took the lisinopril with the Flomax, he tells me he asked his coworkers to call 911, when EMS arrived he was noted to be hypotensive, blood pressure of 96/60. Patient tells me that his blood pressure has never been this low. He reports that he is having severe intermittent left-sided flank pain with radiation into the left testicle, he tells me that the testicular pain is very uncomfortable and he has never had this before even with previous kidney stones. Patient reports that he is concerned both about his kidney stones and his blood pressure. He denies chest pain, shortness of breath, headache, dizziness, vision changes, nausea, vomiting changes in urination and bowel habits, fevers, chills, sick contacts. Related Data Previous Rx's Medication Instructions Recorded omeprazole 20 mg capsule,delayed 20 mg PO DAILY 20 days #20 caps 04/09/21 release lisinopril 10 1 tab PO DAILY 30 days #30 tabs 04/08/22 mg-hydrochlorothiazide 12.5 mg tablet Allergies Allergy/AdvReac Type Severity Reaction Status Date / Time No Known Allergies Allergy Verified 04/09/22 15:55 [No Known Allergies*] Review of Systems Review of Systems: Constitutional : No Weight loss, No Fever, No Chills, No Fatigue, No Malaise ENT/Mouth : No sore throat, No Rhinorrhea Eyes: No Eye Pain, No Swelling, No Redness Cardiovascular : No Chest Pain, No SOB, No Dyspnea on Exertion, No Orthopnea, No Edema, No Palpitations Respiratory : No Cough, No Sputum, No Wheezing Gastrointestinal : No Nausea, No Vomiting, No Diarrhea, No Constipation, No abdominal Pain, No Hematochezia, No Melena Genitourinary : No Dysuria, No Urinary Frequency, No Hematuria, + testicular pain Musculoskeletal : No joint pain, No Myalgias, No Joint Swelling, + flank pain Skin : No Skin Lesions, No rash Neuro : No Weakness, No Numbness, No Dizziness, No Headache Psych : No Anxiety/Panic, No Depression All other systems reviewed and are negative Yes all other systems are reviewed and are negative [facility] Past Medical History Attestation statement: The following information was validated with the patient. Source: old records reviewed and nursing notes reviewed Medical History Asthma Fatty liver Hypercholesterolemia Migraine Obstructive sleep apnea Renal calculi Vitamin B12 deficiency Vitamin D deficiency Surgical History History of tooth extraction Family History Family History Mother Hypertension Father Hypertension Son In good health Son In good health Son In good health Sister In good health Brother No problems noted. Social History Social History Housing: House Alcohol intake: unknown Patient Tobacco Use Status: Never used Tobacco Tobacco use type: Cigarette e-Cigarette/Vaping Use: Never Used Advance Directives: No Advance Directives Information Provided: No Cognitive needs: No Hearing needs: No Vision needs: No Physical Exam ED Vital Signs: Vital Signs - 24 hr 04/09/22 15:55 04/09/22 16:54 04/09/22 16:54 Temperature 98.1 F Pulse Rate 85 78 81 Respiratory Rate 18 Blood Pressure 116/79 105/69 120/79 Pulse Oximetry 99 Oxygen Delivery Method Room Air 04/09/22 16:56 Temperature Pulse Rate 95 Respiratory Rate Blood Pressure 96/67 Pulse Oximetry Oxygen Delivery Method BMI result Body Mass Index 26.4 vss Appearance: Alert.? Oriented X3.? No acute distress.? Head: Normocephalic, atraumatic, no step-offs or deformities Eyes: Pupils equal, round and reactive to light.? ENT: Pharynx normal.? Neck: Normal inspection.? Neck supple.? CVS: Normal heart rate and rhythm.? Pulses normal.? Respiratory: No respiratory distress.? Breath sounds normal.? Abdomen: Soft and nontender.? Skin: Skin warm and dry.? Normal skin color.? Normal skin turgor.? Extremities: No lower extremity edema.? No calf ttp. 5/5 strength to bilateral upper and lower extremities Back: + CVA tenderness on left negative on right Neuro: Oriented X 3.? No motor deficit.? No sensory deficit. CN 2-12 intact. Normal finger to noses. 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 Negative pronator drift, normal romberg Course Reevaluation(s) Reevaluation #1: CBC within normal limits. Chemistry without electrolyte abnormalities requiring intervention. EKG non ischemic, trop negative unlikley acs . Orthostatics positive. Abd and pelvis CT and US of scrotum with doppler pending. Time: 17:18 Reevaluation #2: 4 mm partially obstructing stone noted on L. on CT. Ultrasound within normal limits no sign of torsion. Ua w/o infection. Time: 17:50 Reevaluation #3: Patient is still complaining of dizziness despite hydration. Normal neuro exam, normal cerebellar function unlikely posterior stroke. Likely dizziness secondary to orthostatic hypotension. This time patient will be admitted to the hospitalist team for evaluation of orthostatic hypotension and 4 mm stone in the left UVJ that is causing patient left flank pain that radiates into the left testicle. Spoke to hospitalist about this patient for admission. Time: 19:27 Medical Decision Making [facility] Narrative Medical decision making narrative: [id number] 36-year-old male presents with left flank pain radiating and testicles and low blood pressures. Reports history of kidney stones and recent medication changes. PE with complaints of L CVA tenderness. RRR. Lungs clear. Abd soft non tender non distended. Neuro nonfocal. Cerebellar intact. VSS Concerns for kidney stones, UTI. Dizziness could be secondary to Flomax/dehydration. Will obtain orthostatic vital signs to rule out orthostatic hypotension, will also rule out pyelonephritis and orthostatic hypotension. No signs of acute abdomen, posterior stroke, stroke, intracranial hemorrhage. Plan at this time is basic labs, urine, imaging, EKG, orthostatic vitals, troponin Medical Records Medical records reviewed: Yes I reviewed the patient's medical records. Lab Data Result diagrams: 04/09/22 16:09 04/09/22 16:09 Labs: Lab Results 04/09/22 04/09/22 04/09/22 Range/Units 16:09 16:09 16:09 WBC 10.2 (4.8-10.8) X10*3/uL RBC 4.82 (4.60-5.80) X10*6/uL Hgb 15.3 (14.0-18.0) g/dl Hct 43.6 (42.0-52.0) % MCV 90.5 (80.0-98.0) fL MCH 31.7 (27.0-33.0) pg MCHC 35.1 (31.0-36.0) g/dl RDW 11.9 (11.0-16.0) % Plt Count 317 (160-400) X10*3/uL MPV 9.7 (9.4-12.4) fL Immature Gran % (Auto) 0.2 (0.0-0.4) % Neut % (Auto) 81.6 H (45-73) % Lymph % (Auto) 12.6 L (20-40) % [place] % (Auto) 5.0 (2-11) % Eos % (Auto) 0.2 (0-4) % Baso % (Auto) 0.4 (0-2) % Lymph # (Auto) 1.3 (1.2-4.9) X10*3/uL [place] # (Auto) 0.5 (0.1-1.2) X10*3/uL Eos # (Auto) 0.0 (0.0-0.4) X10*3/uL Baso # (Auto) 0.0 (0.0-0.2) X10*3/uL Abs Immat Gran (auto) 0.02 (0.00-0.03) X10*3/uL Absolute Neuts (auto) 8.3 (2.0-8.3) x10*3/uL Absolute Nucleated RBC 0.000 (0.0-0.012) X10*3/uL Nucleated RBC % (auto) 0.0 (0.0-0.2) /100WBC Sodium 137 (135-145) mmol/L Potassium 4.0 (3.3-5.1) mmol/L Chloride 103 (96-108) mmol/L Carbon Dioxide 21 L (22-29) mmol/L Anion Gap 17 (12-20) BUN 14 (9-16) mg/dL Creatinine 1.19 (0.5-1.4) mg/dL Estim Creat Clear Calc 89.6 Estimated GFR > 60 Random Glucose 97 (60-115) mg/dL Calcium 9.8 (8.4-10.2) mg/dL Total Bilirubin 0.8 (0.0-1.0) mg/dL AST 22 (5-37) U/L ALT 19 (0-40) U/L Alkaline Phosphatase 103 D (39-117) U/L Troponin I High Sens < 3.5 (<3.5-35.0) ng/L Total Protein 7.9 (6.5-8.0) g/dL Albumin 4.9 (3.5-5.0) g/dL Urine Color Urine Appearance Urine pH (5.0-9.0) Ur Specific [place] (1.005-1.025) Urine Protein (Neg-Trace) mg/dL Urine Glucose (UA) (Negative) mg/dL Urine Ketones (Negative) mg/dL Urine Blood (Negative) Urine Nitrite (Negative) Ur Leukocyte Esterase (Negative) Urine RBC (0-2) /HPF Urine WBC (0-5) /HPF Ur Squamous Epith Cells (0-2) /HPF Urine Bacteria (None Seen) Hyaline Casts (0-2) /LPF 04/09/22 Range/Units 18:53 WBC (4.8-10.8) X10*3/uL RBC (4.60-5.80) X10*6/uL Hgb (14.0-18.0) g/dl Hct (42.0-52.0) % MCV (80.0-98.0) fL MCH (27.0-33.0) pg MCHC (31.0-36.0) g/dl RDW (11.0-16.0) % Plt Count (160-400) X10*3/uL MPV (9.4-12.4) fL Immature Gran % (Auto) (0.0-0.4) % Neut % (Auto) (45-73) % Lymph % (Auto) (20-40) % [place] % (Auto) (2-11) % Eos % (Auto) (0-4) % Baso % (Auto) (0-2) % Lymph # (Auto) (1.2-4.9) X10*3/uL [place] # (Auto) (0.1-1.2) X10*3/uL Eos # (Auto) (0.0-0.4) X10*3/uL Baso # (Auto) (0.0-0.2) X10*3/uL Abs Immat Gran (auto) (0.00-0.03) X10*3/uL Absolute Neuts (auto) (2.0-8.3) x10*3/uL Absolute Nucleated RBC (0.0-0.012) X10*3/uL Nucleated RBC % (auto) (0.0-0.2) /100WBC Sodium (135-145) mmol/L Potassium (3.3-5.1) mmol/L Chloride (96-108) mmol/L Carbon Dioxide (22-29) mmol/L Anion Gap (12-20) BUN (9-16) mg/dL Creatinine (0.5-1.4) mg/dL Estim Creat Clear Calc Estimated GFR Random Glucose (60-115) mg/dL Calcium (8.4-10.2) mg/dL Total Bilirubin (0.0-1.0) mg/dL AST (5-37) U/L ALT (0-40) U/L Alkaline Phosphatase (39-117) U/L Troponin I High Sens (<3.5-35.0) ng/L Total Protein (6.5-8.0) g/dL Albumin (3.5-5.0) g/dL Urine Color Yellow Urine Appearance Clear Urine pH 6.5 (5.0-9.0) Ur Specific [place] 1.010 (1.005-1.025) Urine Protein Negative (Neg-Trace) mg/dL Urine Glucose (UA) Negative (Negative) mg/dL Urine Ketones Negative (Negative) mg/dL Urine Blood Small (1+) H (Negative) Urine Nitrite Negative (Negative) Ur Leukocyte Esterase Negative (Negative) Urine RBC 11-20 H (0-2) /HPF Urine WBC 0-5 (0-5) /HPF Ur Squamous Epith Cells 0-2 (0-2) /HPF Urine Bacteria None Seen (None Seen) Hyaline Casts 0-2 (0-2) /LPF ECG Data Attestation: I personally reviewed and interpreted this ECG as follows: Prior ECG tracings: available for review Interpretation: Ventricular rate of 78, MN normal, QRS normal, QT/QTC normal. EKG with normal sinus rhythm no ST elevations or inversions concerning for ischemia. No significant changes when compared to EKG from June 2021. Critical Care Time Critical Care Time Critical Care Time: No Discharge Plan Discharge Clinical Impression: Left flank pain, Orthostatic hypotension, Kidney stone Patient Disposition: Admitted As Inpatient Instructions: Dizziness (ED), Flank Pain (ED) Prescriptions: No Action omeprazole 20 mg capsule,delayed release(DR/EC) 20 mg PO DAILY 20 Days Qty: 20 0RF lisinopril-hydrochlorothiazide 10-12.5 mg tablet 1 tab PO DAILY 30 Days Qty: 30 1RF
[2022-04-09] MEDS: 0.9 % Sodium Chloride 1,000 ML 999 ML IV ×2 (16:51→17:14)
[2022-04-09 17:18] LABS: Troponin-I High Sensitivity < 3.5 ng/L (<3.5-35.0)
[2022-04-09] MEDS: Ketorolac Tromethamine 15 MG/ML VIAL 30 MG IVPUSH (18:50)
[2022-04-09 19:09] LABS: Appearance Urine Clear; Color Urine Yellow; Glucose Urine UA Negative (Negative); Leukocyte Esterase Urine Negative (Negative); Nitrite Urine Negative (Negative); PH 6.5 (5.0-9.0); UMIC TRIGGER UACC YES; Urine Blood Small (1+) (Negative); Urine Ketones Negative (Negative); Urine Protein Negative (Neg-Trace)
[2022-04-09 19:14] LABS: Bacteria Urine None Seen (None Seen); Hyaline Casts Urine 0-2 /LPF (0-2); Squamous Epithelial Cell Urine 0-2 /HPF (0-2); WBC Urine 0-5 /HPF (0-5)
--- NOTE | 2022-04-09 19:42 | P.HPHOSP_ITS ---
History of Present Illness Date of Service: 04/09/22 Attending physician on admission: Tommy Baig Chief Complaint: left flank pain, dizziness 36-year-old male history of RAH on CPAP, GERD, uncontrolled hypertension, hypercholesterolemia, history of kidney stones presenting to the emergency department complaints of severe left-sided flank pain and low blood pressures. Reporting severe intermittent left-sided flank pain with radiation into the left testicle ongoing for several days. He does have a history of prior kidney stones and had been trying to treat himself with Flomax with limited relief of symptoms. He also reports left testicular pain which is new. He also states that he has been intermittently dizzy related to change of position. He states that his amlodipine was changed yesterday to lisinopril-hydrochlorothiazide 10- 12.5 mg to better manage his blood pressure. He states he had sudden-onset dizziness prompting him to call 911. When EMS arrived his blood pressure was 96/60. There has been some nausea but no vomiting. He denies any fevers, chills, dysuria, hematuria, increased urinary frequency, urgency, headaches, visual changes, palpitations, or chest pain. He denies any recent illness. Renal function electrolyte levels are normal. there is no leukocytosis. UA shows 1+ blood, negative nitrites, negative leukocytes, negative bacteria. Scro [place] ultrasound negative for torsion or other acute abnormality. CT abdomen/pelvis shows moderate left-sided dilatation of the urinary collecting system down to the UVJ where there is a 4 mm partially obstructing stone. There is no perinephric collection. Patient also noted to be orthostatic with BP down to 96/57 standing. There was no significant improvement in orthostatic VS with BP of 100/60 and HR 102 upon standing after 2L bolus IV NS. Also given ketorolac for pain with improvement in left flank pain to 7/10. Review of Systems Review of Systems: General: No fevers, malaise, unintentional weight loss HEENT: No blurred vision or diplopia Cardiovascular: No chest pain, palpitations, or leg edema Respiratory: No shortness of breath, wheezing, cough GI: +nausea. No abdominal pain, vomiting, diarrhea, constipation, melena, hematochezia : +left testicular pain. No dysuria, hematuria, increased frequency MSK: +left flank pain Neuro: +lightheadedness. No headaches, weakness, paresthesias Skin: No rashes or lesions ON LICENSE OF [facility] Medical History Asthma Fatty liver Hypercholesterolemia Migraine Obstructive sleep apnea Renal calculi Vitamin B12 deficiency Vitamin D deficiency Family History Mother Hypertension Father Hypertension Son In good health Son In good health Son In good health Sister In good health Brother No problems noted. Surgical History History of tooth extraction Social History Housing: House Alcohol intake: unknown Patient Tobacco Use Status: Never used Tobacco Tobacco use type: Cigarette e-Cigarette/Vaping Use: Never Used Advance Directives: No Advance Directives Information Provided: No Cognitive needs: No Hearing needs: No Vision needs: No Meds Allergies Allergy/AdvReac Type Severity Reaction Status Date / Time No Known Allergies Allergy Verified 04/09/22 15:55 [No Known Allergies*] Active Medications: Current Medications Acetaminophen (Acetaminophen 325 Mg Tablet) 650 mg PO Q6H PRN PRN Reason: Pain, Mild (Pain Scale 1-3) Lactated Ringer's (Lr) 1,000 mls @ 100 mls/hr IVCONT .Q10H ROSEMARY Ketorolac Tromethamine (Ketorolac Tromethamine 30 Mg/Ml Vial) 30 mg IVPUSH Q6H PRN PRN Reason: Pain, Moderate (Pain Scale 4-6 Stop: 04/14/22 19:34 Ondansetron HCl (Ondansetron Hcl 4 Mg/2 Ml Vial) 4 mg IVPUSH Q8H PRN PRN Reason: Nausea and Vomiting Oxycodone HCl (Oxycodone Hcl Immed Release 5 Mg Tablet) 5 mg PO Q6H PRN PRN Reason: Pain, Severe (Pain Scale 7-10) Pharmacy Consult (Consult Rx Perform Med Rec) 1 each MISCELLANE ONCE PRN PRN Reason: Consult order Sodium Chloride (0.9 % Sodium Chloride Flush 3 Ml Syringe) 3 ml IVFLUSH QSHIFT ROSEMARY Tamsulosin HCl (Tamsulosin Hcl 0.4 Mg Capsule) 0.4 mg PO DAILY ROSEMARY Physical Exam Vital Signs and Narrative: Vital Signs: Last Vital Signs Temp 98.1 F 04/09/22 15:55 Pulse 102 H 04/09/22 19:38 Resp 18 04/09/22 15:55 BP 100/60 04/09/22 19:38 Pulse Ox 99 04/09/22 15:55 O2 Del Method 04/09/22 15:55 BMI result Body Mass Index 26.4 Constitutional - Awake and Alert, No apparent distress Eyes - PERRLA, EOMI Cardiovascular - S1S2, RRR, No edema Respiratory - Normal lung expansion, Normal respiratory effort, No respiratory distress, CTA bilaterally Gastrointestinal - NT / ND; +BS; No rebound or guarding - No CVA tenderness Extremities - no calf tenderness bilaterally, no swelling Skin - Warm/Dry Neurological - Alert & oriented x3, No focal deficit Results Labs CBC and Chem 7: 04/09/22 16:09 04/09/22 16:09 Labs: Laboratory Results - last 24 hr 04/09/22 04/09/22 04/09/22 16:09 16:09 16:09 MCV 90.5 MCH 31.7 MCHC 35.1 RDW 11.9 Plt Count 317 MPV 9.7 Immature Gran % (Auto) 0.2 Neut % (Auto) 81.6 H Lymph % (Auto) 12.6 L [place] % (Auto) 5.0 Eos % (Auto) 0.2 Baso % (Auto) 0.4 Lymph # (Auto) 1.3 [place] # (Auto) 0.5 Eos # (Auto) 0.0 Baso # (Auto) 0.0 Abs Immat Gran (auto) 0.02 Absolute Neuts (auto) 8.3 Absolute Nucleated RBC 0.000 Nucleated RBC % (auto) 0.0 Anion Gap 17 Estim Creat Clear Calc 89.6 Estimated GFR > 60 Random Glucose 97 Calcium 9.8 Total Bilirubin 0.8 AST 22 ALT 19 Alkaline Phosphatase 103 D Troponin I High Sens < 3.5 Total Protein 7.9 Albumin 4.9 Urine Color Urine Appearance Urine pH Ur Specific [place] Urine Protein Urine Glucose (UA) Urine Ketones Urine Blood Urine Nitrite Ur Leukocyte Esterase Urine RBC Urine WBC Ur Squamous Epith Cells Urine Bacteria Hyaline Casts 04/09/22 18:53 MCV MCH MCHC RDW Plt Count MPV Immature Gran % (Auto) Neut % (Auto) Lymph % (Auto) [place] % (Auto) Eos % (Auto) Baso % (Auto) Lymph # (Auto) [place] # (Auto) Eos # (Auto) Baso # (Auto) Abs Immat Gran (auto) Absolute Neuts (auto) Absolute Nucleated RBC Nucleated RBC % (auto) Anion Gap Estim Creat Clear Calc Estimated GFR Random Glucose Calcium Total Bilirubin AST ALT Alkaline Phosphatase Troponin I High Sens Total Protein Albumin Urine Color Yellow Urine Appearance Clear Urine pH 6.5 Ur Specific [place] 1.010 Urine Protein Negative Urine Glucose (UA) Negative Urine Ketones Negative Urine Blood Small (1+) H Urine Nitrite Negative Ur Leukocyte Esterase Negative Urine RBC 11-20 H Urine WBC 0-5 Ur Squamous Epith Cells 0-2 Urine Bacteria None Seen Hyaline Casts 0-2 Imaging Radiologist's Impressions: Impressions Abdomen/Pelvis CT 04/09/22 17:11 IMPRESSION: 4 mm partially obstructing left distal ureteral stone. Fleischner guidelines were followed. Scrotum Ultrasound 04/09/22 17:44 IMPRESSION: Unremarkable scrotal ultrasound. Assessment and Plan (1) Orthostatic hypotension: Status: Acute (2) Kidney stone: Status: Acute Plan 36-year-old male history of RAH on CPAP, GERD, uncontrolled hypertension, hypercholesterolemia, history of kidney stones to be observed for orthostatic hypotension and left sided ureteral stone. #Orthostatic hypotension -HTN meds changed from amlodipine 5mg to lisinopril-hctz 10-12.5mg yesterday with onset of positional dizziness and low BPs today. Likely secondary to the HCTZ or flomax use (or combination) -Received 2L IV NS bolus in ED without improvement in orthostasis -Change IVF to LR and continue @100ml/hr -Hold flomax -Recheck orthostatics am -Check BMP am #Left-sided ureteral stone -CT abd/pelvis showing moderate left-sided dilitation of the ureter with partially obstructing ureteral stone. No hydronephrosis. -Hold flomax -IVF as above -ondansetron prn for nausea/vomiting -Pain management with torodol and oxycodone on pain scale -Consider urological eval if symptoms not improving #HTN -Hold antihypertensives -D/c hctz- likely causing orthostasis. Continue lisinopril on discharge #RAH -CPAP ordered #GERD -Continue ppi DVT prophylaxis- mechanical Full code Quality Stroke Does the patient have a stroke diagnosis?: No VTE Prior VTE?: No VTE Risk Level:: Medical - low VTE Device Contraindication: N/A - Device Ordered VTE Drug Contraindication: Treatment Not Indicated
[2022-04-09 19:59] LABS: COVID-19 Test Negative (Negative)
[2022-04-09] MEDS: Lactated Ringers 1,000 ML 100 ML IVCONT (20:24)
--- NOTE | 2022-04-09 20:41 | PC.NURSE ---
report called to Isaura RENEE [place] [phone]
[2022-04-09] MEDS: Acetaminophen 325 MG TABLET 650 MG PO (21:38)
--- NOTE | 2022-04-09 22:43 | PHA.MEDREC ---
Pharmacy Consult ? Medication Reconciliation Pharmacy has completed the medication reconciliation.
[2022-04-10] VITALS (13 sets, daily range): BP systolic 92–139; BP diastolic 61–89; PULSE 66–95; RESP 16–20; TEMP 36.1–36.6; O2SAT 96–100
[2022-04-10] MEDS: Acetaminophen 325 MG TABLET 650 MG PO ×2 (04:30→21:28)
--- NOTE | 2022-04-10 04:40 | ECG_ITS ---
Test Reason : cp Blood Pressure : / mmHG Vent. Rate : 064 BPM Atrial Rate : 064 BPM P-R Int : 140 ms QRS Dur : 096 ms QT Int : 404 ms P-R-T Axes : -04 051 050 degrees QTc Int : 416 ms Sinus rhythm Nonspecific T wave abnormality Abnormal ECG When compared with ECG of 09-APR-2022 16:36, No significant changes seen Referred By: Leandro Baig Electronically Signed By:YOMI GRIMALDO MD
--- NOTE | 2022-04-10 04:53 | PC.NURSE ---
pt complained about the chest pain. 11/03 comes and goes, dr. Tommy Baig notified and order ECG at 04:50, ECG completed at this time.
[2022-04-10] MEDS: Lactated Ringers 1,000 ML 100 ML IVCONT (05:21)
[2022-04-10 06:13] LABS: Anion Gap 14 (12-20); Blood Urea Nitrogen 11 mg/dL (9-16); Carbon Dioxide 25 mmol/L (22-29); Chloride 105 mmol/L (96-108); Estimated Glomerular Filt Rate > 60; Glucose Random 98 mg/dL (60-115); Potassium 3.7 mmol/L (3.3-5.1); Sodium 140 mmol/L (135-145)
--- NOTE | 2022-04-10 08:54 | MHC.CM.PN ---
LISETH DELIVERED CM MET WITH PATIENT WHO LIVES IN AN APARTMENT WITH FAMILY. NO SERVICES CURRENTLY, USES CPAP AT NIGHT. NO HCP AND DECLINES TO DO ONE. COVID VAX X2. [place] [facility] [place] STATES HE HAS CAR IN PARKING LOT, WILL MAKE OTHER ARRANGEMENTS SHOULD IT BE ADVISED.
[2022-04-10] MEDS: Ketorolac Tromethamine 30 MG/ML VIAL IVPUSH (10:59)
--- NOTE | 2022-04-10 11:51 | P.PNIM_ITS ---
Subjective Subjective Date of Service: 04/10/22 Interval History: Being followed for dizziness and partially obstructing left ureteral stone, patient complaining of lightheadedness and dizziness when he stands also complaining of persistent left flank pain, refusing to take oxycodone but willing to take Tylenol and Toradol, denies fever chills, no nausea., no vomiting tolerating diet, no acute issues overnight Review of Systems Skin no rash no urgency, no frequency Review of Systems: Yes all other systems are reviewed and are negative Physical Exam Vital Signs: Vital Signs: Last Vital Signs Temp 97.3 F 04/10/22 08:00 Pulse 72 04/10/22 08:00 Resp 18 04/10/22 08:00 BP 124/79 04/10/22 08:00 Pulse Ox 98 04/10/22 08:00 O2 Del Method 04/10/22 08:00 BMI result Body Mass Index 26.4 Const: Other: General awake alert x3, in no acute distress. Anicteric sclera Neck supple no JVD. CVS regular rate rhythm, Respiratory lungs clear to auscultation, no respiratory distress, no wheeze, no rhonchi. Gastrointestinal abdomen soft, nontender, bowel sounds audible Back no CVA tenderness Extremities no edema. Neuro nonfocal Skin no rash Psych appropriate affect Objective Data Active Medications Acetaminophen (Acetaminophen 325 Mg Tablet) 650 mg PO Q6H PRN PRN Reason: Pain, Mild (Pain Scale 1-3) Last Admin: 04/10/22 04:30 Dose: 650 mg Documented By: YINKA Lactated Ringer's (Lr) 1,000 mls @ 100 mls/hr IVCONT .Q10H ROSEMARY Last Admin: 04/10/22 05:21 Dose: 100 mls/hr Documented By: YINKA Ketorolac Tromethamine (Ketorolac Tromethamine 30 Mg/Ml Vial) 30 mg IVPUSH Q6H PRN PRN Reason: Pain, Moderate (Pain Scale 4-6 Stop: 04/14/22 23:34 Last Admin: 04/10/22 10:59 Dose: 30 mg Documented By: ANTHONY Ondansetron HCl (Ondansetron Hcl 4 Mg/2 Ml Vial) 4 mg IVPUSH Q8H PRN PRN Reason: Nausea and Vomiting Oxycodone HCl (Oxycodone Hcl Immed Release 5 Mg Tablet) 5 mg PO Q6H PRN PRN Reason: Pain, Severe (Pain Scale 7-10) Pharmacy Consult (Consult Rx Perform Med Rec) 1 each MISCELLANE ONCE PRN PRN Reason: Consult order Sodium Chloride (0.9 % Sodium Chloride Flush 3 Ml Syringe) 3 ml IVFLUSH QSHIFT ROSEMARY Last Admin: 04/10/22 09:21 Dose: Not Given Documented By: ANTHONY Non-Admin Reason: IV Running Labs CBC & Chem 7: 04/09/22 16:09 04/10/22 05:15 Labs: Laboratory Results - last 24 hr 04/09/22 04/09/22 04/09/22 16:09 16:09 16:09 MCV 90.5 MCH 31.7 MCHC 35.1 RDW 11.9 Plt Count 317 MPV 9.7 Immature Gran % (Auto) 0.2 Neut % (Auto) 81.6 H Lymph % (Auto) 12.6 L [place] % (Auto) 5.0 Eos % (Auto) 0.2 Baso % (Auto) 0.4 Lymph # (Auto) 1.3 [place] # (Auto) 0.5 Eos # (Auto) 0.0 Baso # (Auto) 0.0 Abs Immat Gran (auto) 0.02 Absolute Neuts (auto) 8.3 Absolute Nucleated RBC 0.000 Nucleated RBC % (auto) 0.0 Anion Gap 17 Estim Creat Clear Calc 89.6 Estimated GFR > 60 Random Glucose 97 Calcium 9.8 Total Bilirubin 0.8 AST 22 ALT 19 Alkaline Phosphatase 103 D Troponin I High Sens < 3.5 Total Protein 7.9 Albumin 4.9 Urine Color Urine Appearance Urine pH Ur Specific [place] Urine Protein Urine Glucose (UA) Urine Ketones Urine Blood Urine Nitrite Ur Leukocyte Esterase Urine RBC Urine WBC Ur Squamous Epith Cells Urine Bacteria Hyaline Casts COVID-19 (OCTAVIO) COVID-19 Clin Com 04/09/22 04/09/22 04/10/22 18:53 19:40 05:15 MCV MCH MCHC RDW Plt Count MPV Immature Gran % (Auto) Neut % (Auto) Lymph % (Auto) [place] % (Auto) Eos % (Auto) Baso % (Auto) Lymph # (Auto) [place] # (Auto) Eos # (Auto) Baso # (Auto) Abs Immat Gran (auto) Absolute Neuts (auto) Absolute Nucleated RBC Nucleated RBC % (auto) Anion Gap 14 Estim Creat Clear Calc 130.0 Estimated GFR > 60 Random Glucose 98 Calcium 9.0 D Total Bilirubin AST ALT Alkaline Phosphatase Troponin I High Sens Total Protein Albumin Urine Color Yellow Urine Appearance Clear Urine pH 6.5 Ur Specific [place] 1.010 Urine Protein Negative Urine Glucose (UA) Negative Urine Ketones Negative Urine Blood Small (1+) H Urine Nitrite Negative Ur Leukocyte Esterase Negative Urine RBC 11-20 H Urine WBC 0-5 Ur Squamous Epith Cells 0-2 Urine Bacteria None Seen Hyaline Casts 0-2 COVID-19 (OCTAVIO) Negative COVID-19 Clin Com See Note Assessment and Plan (1) Left flank pain: Status: Acute (2) Orthostatic hypotension: Status: Acute Plan 36-year-old male history of RAH on CPAP, GERD, uncontrolled hypertension, hypercholesterolemia, history of kidney stones to be observed for orthostatic hypotension and left sided ureteral stone. # persistent symptomatic Orthostatic hypotension -HTN meds changed from amlodipine 5mg to lisinopril-hctz 10-12.5mg on 04/08 with onset of positional dizziness Persistent lightheadedness and soft BP this am HCTZ and Flomax discontinued -Received 2L IV NS bolus in ED without improvement in orthostasis, continue IV fluid increased LR to 150 per hour Follow orthostatics blood pressure Normal renal function and electrolytes #Left-sided ureteral stone -CT abd/pelvis showing moderate left-sided dilatation of the ureter with partially obstructing ureteral stone. No hydronephrosis. Case discussed with Urology she recommend IV fluids and analgesics in a hope that patient will pass the stone due to its size, will strain all urine Will continue Pain management with torodol, Tylenol and oxycodone If patient unable to pass the stone will keep him NPO after midnight patient will be reassessed by Urology for possible stent placement, on the other hand patient passed the stone will discharge him home with outpatient Urology follow-up #HTN -soft blood pressures will continue to hold lisinopril and hydrochlorothiazide, noted to have elevated blood pressures will discharge him home on low-dose lisinopril #RAH -CPAP #GERD -Continue ppi DVT prophylaxis- mechanical Full code Quality Stroke Does the patient have a stroke diagnosis?: No VTE Prior VTE?: No VTE Risk Level:: Medical - low VTE Device Contraindication: N/A - Device Ordered VTE Drug Contraindication: Treatment Not Indicated
--- NOTE | 2022-04-10 11:51 | P.CNUR_ITS ---
History of Present Illness Consult details Consult date: 04/10/22 Narrative: 36-year-old male history of RAH on CPAP, GERD, uncontrolled hypertension, hypercholesterolemia, history of kidney stones presenting to the emergency department complaints of severe left-sided flank pain. c/o's of severe intermittent left-sided flank pain with radiation into the left testicle ongoing for several days.? Review of chart notes that when EMS arrived his blood pressure was 96/60.? There has been some nausea but no vomiting.? He denies any fevers, chills, dysuria, hematuria, increased urinary frequency, urgency, headaches, visual changes, palpitations, or chest pain.? He denies any recent illness.? CT abdomen/pelvis shows moderate left-sided dilatation of the urinary collecting system down to the UVJ where there is a 4 mm partially obstructing stone.? Pertinent Findings: KIDNEYS AND URETERS: Tiny 2 mm nonobstructing right lower pole calyceal stone. Upper pole cortical cyst. On the left, there is moderate dilatation of the urinary collecting system down to the level of the UVJ where there is a 4 mm partially obstructing stone. No perinephric collection.? Review of Systems Review of Systems: 10 point ROS negative other than [facility] Past Medical History Medical History Asthma Fatty liver Hypercholesterolemia Migraine Obstructive sleep apnea Renal calculi Vitamin B12 deficiency Vitamin D deficiency Family History Family History Mother Hypertension Father Hypertension Son In good health Son In good health Son In good health Sister In good health Brother No problems noted. Surgical History Surgical History History of tooth extraction Social History Social History Household Members: Spouse and Family Household Members Other:: 5 Housing: House Do you presently have visiting nurse or other home services: No Alcohol intake: unknown Patient Tobacco Use Status: Never used Tobacco Tobacco use type: Cigarette e-Cigarette/Vaping Use: Never Used Use of substances other than those prescribed or required for medical reasons: No Currently Displaying Signs/Symptoms of Drug Intoxication Withdrawal: No Any prior treatment program specific to substance use: No Have you been hit, kicked, punched, or otherwise hurt by someone within the past year? If so, by whom?: No Do you feel safe in your current relationship?: No Is there a partner from a previous relationship who is making you feel unsafe now?: No Are you made to feel afraid or neglected: No Spiritual Healthcare Practices: jehovah's witness Gnosticist Healthcare Practices: yes Advance Directives: No Advance Directives Information Provided: No Advance Directives on File: No Do you have thoughts of harming others: None Do you have a plan to hurt others: No Plan Recently lost weight without trying: No How much weight loss: 2-13 pounds Eating poorly because of decreased appetite: No Nutrition screen score: 1 Nutrition Risks: No Nutritional Risk service: No Current occupational status: employed Cognitive needs: No Hearing needs: No Vision needs: No Meds Allergies Allergy/AdvReac Type Severity Reaction Status Date / Time No Known Allergies Allergy Verified 04/09/22 15:55 [No Known Allergies*] Active Medications: Current Medications Acetaminophen (Acetaminophen 325 Mg Tablet) 650 mg PO Q6H PRN PRN Reason: Pain, Mild (Pain Scale 1-3) Last Admin: 04/10/22 04:30 Dose: 650 mg Lactated Ringer's (Lr) 1,000 mls @ 100 mls/hr IVCONT .Q10H [facility] Last Admin: 04/10/22 05:21 Dose: 100 mls/hr Ketorolac Tromethamine (Ketorolac Tromethamine 30 Mg/Ml Vial) 30 mg IVPUSH Q6H PRN PRN Reason: Pain, Moderate (Pain Scale 4-6 Stop: 04/14/22 23:34 Last Admin: 04/10/22 10:59 Dose: 30 mg Ondansetron HCl (Ondansetron Hcl 4 Mg/2 Ml Vial) 4 mg IVPUSH Q8H PRN PRN Reason: Nausea and Vomiting Oxycodone HCl (Oxycodone Hcl Immed Release 5 Mg Tablet) 5 mg PO Q6H PRN PRN Reason: Pain, Severe (Pain Scale 7-10) Pharmacy Consult (Consult Rx Perform Med Rec) 1 each MISCELLANE ONCE PRN PRN Reason: Consult order Sodium Chloride (0.9 % Sodium Chloride Flush 3 Ml Syringe) 3 ml IVFLUSH QSHIFT [facility] Last Admin: 04/10/22 09:21 Dose: Not Given Home Medications Medication Instructions Recorded Confirmed Last Taken Type ibuprofen 800 mg tablet 1 tab PO Q8H PRN Pain, Mild 04/09/22 04/09/22 Unknown History tamsulosin 0.4 mg capsule 1 cap PO DAILY 04/09/22 04/09/22 Unknown History Physical Exam Vital Signs: Vital Signs: Last Vital Signs Temp 97.3 F 04/10/22 08:00 Pulse 72 04/10/22 08:00 Resp 18 04/10/22 08:00 BP 124/79 04/10/22 08:00 Pulse Ox 98 04/10/22 08:00 O2 Del Method 04/10/22 08:00 BMI result Body Mass Index 26.4 Const: General: healthy appearing, no acute distress and well developed Orientation/consciousness: patient oriented x3 HEENT: Head: Yes normocephalic and Yes atraumatic Eyes: Conjunctivae: conjunctivae normal Neck: Neck: Yes normal visual inspection Chest: Chest palpation & inspection: normal inspection of the chest Resp: Effort & Inspection: normal respiratory effort Cardio: Rate: regular rate GI: Inspection: Yes normal to inspection Palpation (GI): Soft to palpation : General: Yes CVA tenderness on the left Back/Spine/Pelvis: Back: CVA tenderness Skin: General skin exam: no rashes or lesions noted Neuro: General: patient oriented x3 Extrem: General: No pedal edema Psych: Appearance: grossly normal Affect: normal affect Results Labs Result diagrams: 04/09/22 16:09 04/10/22 05:15 Labs: Abnormal lab results 04/09/22 04/09/22 04/09/22 Range/Units 16:09 16:09 18:53 Neut % (Auto) 81.6 H (45-73) % Lymph % (Auto) 12.6 L (20-40) % Carbon Dioxide 21 L (22-29) mmol/L Urine Blood Small (1+) H (Negative) Urine RBC 11-20 H (0-2) /HPF Short CBC 04/09/22 Range/Units 16:09 WBC 10.2 (4.8-10.8) X10*3/uL Hgb 15.3 (14.0-18.0) g/dl Hct 43.6 (42.0-52.0) % Plt Count 317 (160-400) X10*3/uL BMP 04/09/22 04/10/22 16:09 05:15 Sodium 137 140 Potassium 4.0 3.7 Chloride 103 105 Carbon Dioxide 21 L 25 BUN 14 11 Creatinine 1.19 0.82 Calcium 9.8 9.0 D Liver Function 04/09/22 Range/Units 16:09 Total Bilirubin 0.8 (0.0-1.0) mg/dL AST 22 (5-37) U/L ALT 19 (0-40) U/L Alkaline Phosphatase 103 D (39-117) U/L Albumin 4.9 (3.5-5.0) g/dL Urine 04/09/22 Range/Units 18:53 Urine Color Yellow Urine Appearance Clear Urine pH 6.5 (5.0-9.0) Ur Specific [place] 1.010 (1.005-1.025) Urine Protein Negative (Neg-Trace) mg/dL Urine Glucose (UA) Negative (Negative) mg/dL Imaging Abdomen CT scan report/results: report reviewed and image reviewed Additional studies: Date of Service: 04/09/22 EXAMINATION: CT ABDOMEN AND PELVIS WITHOUT CONTRAST? CLINICAL INFORMATION: Left flank pain? COMPARISON: 07/01/2016? FINDINGS: LUNG BASES: The visualized lung bases are unremarkable.? LIVER, GALLBLADDER, AND BILIARY TREE: The liver is normal in size, shape, and attenuation. No focal hepatic lesion or biliary ductal dilatation is present. The gallbladder is unremarkable with no evidence of radiopaque gallstones, gallbladder wall thickening, or obvious pericholecystic inflammatory changes.? PANCREAS: Unremarkable.? SPLEEN: Unremarkable.? ADRENAL GLANDS: Unremarkable.? KIDNEYS AND URETERS: Tiny 2 mm nonobstructing right lower pole calyceal stone. Upper pole cortical cyst. On the left, there is moderate dilatation of the urinary collecting system down to the level of the UVJ where there is a 4 mm partially obstructing stone. No perinephric collection.? BLADDER: Unremarkable.? GASTROINTESTINAL TRACT: The small and large bowel are unremarkable. The appendix is unremarkable.? ABDOMINAL WALL: No significant hernia is appreciated.? LYMPH NODES: Normal. VASCULAR: Unremarkable. PELVIC VISCERA: Unremarkable.? OSSEOUS STRUCTURES: Unremarkable.? CT/CT abdomen pelvis wo IV con IMPRESSION: 4 mm partially obstructing left distal ureteral stone.? Assessment and Plan (1) Left flank pain: Status: Acute (2) Kidney stone: Status: Acute (3) Hydronephrosis: Status: Acute (4) Ureteral stone: Status: Acute Plan Left ureteral stone with mild hydro, stone distal near bladder 4 mm Patient wants to try to pass with surgical procedure Recommend IVF hydration strain urine he is unable to have flomax due to low BP I Will continue to follow. Procedures Date of Service Date of Service: 04/10/22
[2022-04-10] MEDS: Lactated Ringers 1,000 ML 150 ML IVCONT ×2 (14:58→21:24)
[2022-04-11 03:30] VITALS: BP 113/73; PULSE 70; RESP 19; TEMP 36.8; O2SAT 99
[2022-04-11] MEDS: Lactated Ringers 1,000 ML 150 ML IVCONT ×2 (04:26→11:14)
[2022-04-11 08:00] VITALS: BP 127/72; BP 129/81; PULSE 70; PULSE 74; RESP 18; TEMP 36.1; O2SAT 98
[2022-04-11 11:15] VITALS: BP 137/82; PULSE 75
--- NOTE | 2022-04-11 12:56 | PM.UROPN ---
Subjective Subjective Date of Service: 04/11/22 Patient reports: feels better Interval history: 36-year-old male history of RAH on CPAP, GERD, uncontrolled hypertension, hypercholesterolemia, history of kidney stones presenting to the emergency department complaints of severe left-sided flank pain. c/o's of severe intermittent left-sided flank pain with radiation into the left testicle ongoing for several days.? Review of chart notes that when EMS arrived his blood pressure was 96/60.? There has been some nausea but no vomiting.? He denies any fevers, chills, dysuria, hematuria, increased urinary frequency, urgency, headaches, visual changes, palpitations, or chest pain.? CT abdomen/pelvis shows moderate left-sided dilatation of the urinary collecting system down to the UVJ where there is a 4 mm partially obstructing stone.? The patient has been NPO for planned OR ureteroscopy. Neither he or the nursing staff have noted that he passed the stone but he has not required pain med in several hours, exam at this time is unremarkable. Will get a stat renal u/s however less inclined to pursue surgical intervention at this time. Physical Exam Vital Signs: Vital Signs: Last Vital Signs Temp 97 F 04/11/22 08:00 Pulse 75 04/11/22 11:15 Resp 18 04/11/22 08:00 BP 137/82 04/11/22 11:15 Pulse Ox 98 04/11/22 08:00 O2 Del Method 04/11/22 08:00 BMI result Body Mass Index 26.4 Const: General: healthy appearing, no acute distress and well developed Orientation/consciousness: patient oriented x3 HEENT: Head: Yes normocephalic and Yes atraumatic Eyes: Conjunctivae: conjunctivae normal Neck: Neck: Yes normal visual inspection Chest: Chest palpation & inspection: normal inspection of the chest Resp: Effort & Inspection: normal respiratory effort Cardio: Rate: regular rate GI: Inspection: Yes normal to inspection Palpation (GI): Soft to palpation and nontender : General: Yes no CVA tenderness Penis: normal penis Scrotum: scrotum normal Back/Spine/Pelvis: Back: no CVA tenderness Skin: General skin exam: no rashes or lesions noted Neuro: General: patient oriented x3 Extrem: General: No pedal edema Psych: Appearance: grossly normal Affect: normal affect Urology Results Labs CBC & Chem 7: 04/09/22 16:09 04/10/22 05:15 Progress Note: A&P Assessment and plan (1) Ureteral stone: Status: Acute (2) Hydronephrosis: Status: Acute Plan As noted in History patient currently asymptomatic and exam benign will check stat renal sono hold on surgical intervention Time Spent With Patient Time: Total time spent is greater than 50% in coordination of care (as documented) at patient's floor/unit and/or counseling patient: Progress Note: Quality Stroke Does the patient have a stroke diagnosis?: No
--- NOTE | 2022-04-11 14:09 | MHC.CM.PN ---
Patient has been medically cleared for dc to home today, self care.
--- NOTE | 2022-04-11 14:15 | PM.DS ---
DS: Providers Provider Date of Service: 04/11/22 Date of admission: 04/09/22 19:35 Date of discharge: 04/11/22 Primary care physician: Carmen Weller MD Consults: 04/10/22 08:16 Consult to Urology Routine Consulting Provider: Parag Ulrich Reason for consultation: rt hydronephrosis Has provider been notified: No DS: Diagnosis Discharge Diagnosis (1) Ureteral stone: Status: Acute (2) Hydronephrosis: Status: Acute (3) Orthostatic hypotension: Status: Acute DS: Summary Hospital Course Hospital Course: from admission H+P by hospitalist JOSE EDUARDO Smith, 04/09/22: 36-year-old male history of RAH on CPAP, GERD, uncontrolled hypertension, hypercholesterolemia, history of kidney stones presenting to the emergency department complaints of severe left-sided flank pain and low blood pressures. Reporting severe intermittent left-sided flank pain with radiation into the left testicle ongoing for several days.? He does have a history of prior kidney stones and had been trying to treat himself with Flomax with limited relief of symptoms.? He also reports left testicular pain which is new.? He also states that he has been intermittently dizzy related to change of position.? He states that his amlodipine was changed yesterday to lisinopril-hydrochlorothiazide 10-12.5 mg to better manage his blood pressure.? He states he had sudden-onset dizziness prompting him to call 911.? When EMS arrived his blood pressure was 96/60.? There has been some nausea but no vomiting.? He denies any fevers, chills, dysuria, hematuria, increased urinary frequency, urgency, headaches, visual changes, palpitations, or chest pain.? He denies any recent illness.? Renal function electrolyte levels are normal.? there is no leukocytosis.? UA shows 1+ blood, negative nitrites, negative leukocytes, negative bacteria.? Scrotal ultrasound negative for torsion or other acute abnormality.? CT abdomen/pelvis shows moderate left-sided dilatation of the urinary collecting system down to the UVJ where there is a 4 mm partially obstructing stone.? There is no perinephric collection.? Patient also noted to be orthostatic with BP down to 96/57 standing. There was no significant improvement in orthostatic VS with BP of 100/60 and HR 102 upon standing after 2L bolus IV NS. Also given ketorolac for pain with improvement in left flank pain to 01/03. 36-old male with history of RAH on CPAP, GERD, uncontrolled hypertension, hypercholesterolemia, and history of kidney stones admitted for orthostatic hypotension and left sided ureteral stone. Orthostasis resolved with discontinuing lisinopril/HCTZ and giving IV fluids. Normal renal function and electrolytes. Antihypertensives were changed back to amlodipine on discharge. As for left-sided ureteral stone, operative intervention was initially planned for 04/11, but symptoms resolved; hydronephrosis also resolved; and it was thought that he had passed the stone on his own. He will follow up with Urology as an outpatient. Time Spent with Patient Time attestation: Total time spent providing and/or coordinating discharge services: Discharge coordination time: Greater than 30 minutes Quality: Safe Use of Opioids Does Pt have an Active Cancer Diagnosis on the Problem List?: No Quality: Stroke Does the patient have a stroke diagnosis?: No Physical Exam Vital Signs: Vital Signs: Last Vital Signs Temp 97 F 04/11/22 08:00 Pulse 75 04/11/22 11:15 Resp 18 04/11/22 08:00 BP 137/82 04/11/22 11:15 Pulse Ox 98 04/11/22 08:00 O2 Del Method 04/11/22 08:00 BMI result Body Mass Index 26.4 Gen: in no acute distress HEENT: sclera anicteric, moist mucus membranes Neck: supple Lungs: clear to auscultation bilaterally Heart: regular rate and rhythm, no murmurs Abd: soft, non-tender, non-distended Ext: no edema Skin: warm/well-perfused Neuro: alert and oriented x3, no focal findings Psych: appropriate affect DS: Data Data Completed and Pending Completed studies during hospitalization [Text1]: Laboratory Results WBC 10.2 X10*3/uL (4.8-10.8) 04/09/22 16:09 RBC 4.82 X10*6/uL (4.60-5.80) 04/09/22 16:09 Hgb 15.3 g/dl (14.0-18.0) 04/09/22 16:09 Hct 43.6 % (42.0-52.0) 04/09/22 16:09 MCV 90.5 fL (80.0-98.0) 04/09/22 16:09 MCH 31.7 pg (27.0-33.0) 04/09/22 16:09 MCHC 35.1 g/dl (31.0-36.0) 04/09/22 16:09 RDW 11.9 % (11.0-16.0) 04/09/22 16:09 Plt Count 317 X10*3/uL (160-400) 04/09/22 16:09 MPV 9.7 fL (9.4-12.4) 04/09/22 16:09 Immature Gran % (Auto) 0.2 % (0.0-0.4) 04/09/22 16:09 Neut % (Auto) 81.6 % (45-73) H 04/09/22 16:09 Lymph % (Auto) 12.6 % (20-40) L 04/09/22 16:09 [place] % (Auto) 5.0 % (2-11) 04/09/22 16:09 Eos % (Auto) 0.2 % (0-4) 04/09/22 16:09 Baso % (Auto) 0.4 % (0-2) 04/09/22 16:09 Lymph # (Auto) 1.3 X10*3/uL (1.2-4.9) 04/09/22 16:09 [place] # (Auto) 0.5 X10*3/uL (0.1-1.2) 04/09/22 16:09 Eos # (Auto) 0.0 X10*3/uL (0.0-0.4) 04/09/22 16:09 Baso # (Auto) 0.0 X10*3/uL (0.0-0.2) 04/09/22 16:09 Abs Immat Gran (auto) 0.02 X10*3/uL (0.00-0.03) 04/09/22 16:09 Absolute Neuts (auto) 8.3 x10*3/uL (2.0-8.3) 04/09/22 16:09 Absolute Nucleated RBC 0.000 X10*3/uL (0.0-0.012) 04/09/22 16:09 Nucleated RBC % (auto) 0.0 /100WBC (0.0-0.2) 04/09/22 16:09 Sodium 140 mmol/L (135-145) 04/10/22 05:15 Potassium 3.7 mmol/L (3.3-5.1) 04/10/22 05:15 Chloride 105 mmol/L (96-108) 04/10/22 05:15 Carbon Dioxide 25 mmol/L (22-29) 04/10/22 05:15 Anion Gap 14 (12-20) 04/10/22 05:15 BUN 11 mg/dL (9-16) 04/10/22 05:15 Creatinine 0.82 mg/dL (0.5-1.4) 04/10/22 05:15 Estim Creat Clear Calc 130.0 04/10/22 05:15 Estimated GFR > 60 04/10/22 05:15 Random Glucose 98 mg/dL (60-115) 04/10/22 05:15 Calcium 9.0 mg/dL (8.4-10.2) D 04/10/22 05:15 Total Bilirubin 0.8 mg/dL (0.0-1.0) 04/09/22 16:09 AST 22 U/L (5-37) 04/09/22 16:09 ALT 19 U/L (0-40) 04/09/22 16:09 Alkaline Phosphatase 103 U/L (39-117) D 04/09/22 16:09 Troponin I High Sens < 3.5 ng/L (<3.5-35.0) 04/09/22 16:09 Total Protein 7.9 g/dL (6.5-8.0) 04/09/22 16:09 Albumin 4.9 g/dL (3.5-5.0) 04/09/22 16:09 Urine Color Yellow 04/09/22 18:53 Urine Appearance Clear 04/09/22 18:53 Urine pH 6.5 (5.0-9.0) 04/09/22 18:53 Ur Specific [place] 1.010 (1.005-1.025) 04/09/22 18:53 Urine Protein Negative mg/dL (Neg-Trace) 04/09/22 18:53 Urine Glucose (UA) Negative mg/dL (Negative) 04/09/22 18:53 Urine Ketones Negative mg/dL (Negative) 04/09/22 18:53 Urine Blood Small (1+) (Negative) H 04/09/22 18:53 Urine Nitrite Negative (Negative) 04/09/22 18:53 Ur Leukocyte Esterase Negative (Negative) 04/09/22 18:53 Urine RBC 11-20 /HPF (0-2) H 04/09/22 18:53 Urine WBC 0-5 /HPF (0-5) 04/09/22 18:53 Ur Squamous Epith Cells 0-2 /HPF (0-2) 04/09/22 18:53 Urine Bacteria None Seen (None Seen) 04/09/22 18:53 Hyaline Casts 0-2 /LPF (0-2) 04/09/22 18:53 COVID-19 (OCTAVIO) Negative (Negative) 04/09/22 19:40 COVID-19 Clin Com See Note 04/09/22 19:40 Impressions Abdomen/Pelvis CT 04/09/22 17:11 IMPRESSION: 4 mm partially obstructing left distal ureteral stone. Fleischner guidelines were followed. Scrotum Ultrasound 04/09/22 17:44 IMPRESSION: Unremarkable scrotal ultrasound. Discharge Plan Discharge Anticipated Discharge Date/Time: 04/11/22 18:00 Patient Disposition: Home, Self-Care Discharge Diagnosis: ureteral stone orthostatic hypotension Referrals: Parag Ulrich MD [Physician] - 1 Week Carmen Henry MD [Primary Care Provider] - 1 Week Discharge Medications: New amlodipine 10 mg tablet 10 mg PO DAILY Qty: 30 0RF Continued ibuprofen 800 mg tablet 1 tab PO Q8H PRN (Reason: Pain, Mild) tamsulosin 0.4 mg capsule 1 cap PO DAILY Discontinued lisinopril-hydrochlorothiazide 10-12.5 mg tablet 1 tab PO DAILY 30 Days Qty: 30 1RF Discharge Orders: Discharge Order (Routine); Ordered 04/11/22 Ordered By: Moni Broussard Diet: Advance to usual diet Activity on Discharge: As tolerated Stand Alone Forms: Patient Portal Discharge page Care Plan Goals: prevention of kidney stones normal blood pressure Health Concerns: ureteral stone orthostatic hypotension Plan of Treatment: likely passed stone drink plenty of fluids continue medications follow up with urologist Dr Corlis Lainez-Key change lisinopril-HCTZ to amlodipine Please follow up with your primary care doctor within 1 week. Return to the hospital if you experience recurrent or worsening symptoms. Assessment: See Discharge Summary. Patient Instructions: Dizziness (ED), Flank Pain (ED)
[2022-04-11 16:13] VITALS: BP 142/101; PULSE 74
--- NOTE | 2022-04-11 16:36 | PC.NURSE ---
elevated bp, patient is going home, has questions. Dr Broussard at bedside speaking to patient, real estate administrator also present. Patient was instructed to start taking bp meds this evening.
== END 2022-04-11 16:39 | disposition home or self-care (01) ==
LOC: HO.ED 19:29 → HO.EDOVER 19:46 → HO.S3 20:22
PROVIDERS: Physician Assistant; Admitting Provider Physician Assistant; Emergency Provider Emergency Medicine Emergency Medical Services; PCP Internal Medicine; Visit Provider Family Medicine
DX: N20.1 Calculus of ureter (principal); I95.1 Orthostatic hypotension; G47.33 Obstructive sleep apnea (adult) (pediatric); R07.89 Other chest pain; I10 Essential (primary) hypertension; R10.9 Unspecified abdominal pain; Z20.822 Contact with and (suspected) exposure to COVID-19; Z79.899 Other long term (current) drug therapy
CPT/HCPCS: 36415; 74176; 76775; 80048; 80053; 81001; 84484; 85025; 87635; 93005; 93975; 94660; 96365; 96366; 96375; 96376; 99218; 99285; J1885

== ENCOUNTER → 2022-04-28 14:36 | Outpatient (BNVA) | payer OTHER, SELFPAY | PROVIDERS: PCP Internal Medicine; Visit Provider Internal Medicine | DX: G47.33 Obstructive sleep apnea (adult) (pediatric) (principal); F41.9 Anxiety disorder, unspecified | CPT/HCPCS: 99202 ==

== ENCOUNTER 2022-05-05 09:22 | Outpatient (REF) | payer OTHER, SELFPAY ==
[2022-05-05 10:01] LABS: Hemoglobin 15.8 g/dl (14.0-18.0); Mean Corpuscular HGB Conc 34.3 g/dl (31.0-36.0); Mean Corpuscular Hemoglobin 31.3 pg (27.0-33.0); Mean Corpuscular Volume 91.3 fL (80.0-98.0); Mean Platelet Volume 9.9 fL (9.4-12.4); Platelet Count 294 X10*3/uL (160-400); Red Blood Count 5.04 X10*6/uL (4.60-5.80); Red Cell Distribution Width 11.9 % (11.0-16.0); White Blood Count 5.1 X10*3/uL (4.8-10.8)
[2022-05-05 10:30] LABS: Alanine Aminotransferase 23 U/L (0-40); Albumin Level 4.8 g/dL (3.5-5.0); Alkaline Phosphatase 110 U/L (39-117); Anion Gap 13 (12-20); Aspartate Amino Transferase 22 U/L (5-37); Bilirubin Total 0.9 mg/dL (0.0-1.0); Blood Urea Nitrogen 10 mg/dL (9-16); Calcium 9.5 mg/dL (8.4-10.2); Carbon Dioxide 27 mmol/L (22-29); Chloride 105 mmol/L (96-108); Cholesterol 145 mg/dL; Estimated Glomerular Filt Rate > 60; Glucose Fasting 82 mg/dL (60-99); HDL Cholesterol 30 mg/dL; LDL Cholesterol Calculated 99 mg/dl; Sodium 141 mmol/L (135-145); Total Protein 7.4 g/dL (6.5-8.0); Triglycerides 83 mg/dL
[2022-05-05 10:51] LABS: Vitamin D 25-OH Total 13.1 ng/mL (>30)
[2022-05-05 11:40] LABS: Folate 10.5 ng/mL (> or = 4.0); Vitamin B12 < 148 pg/mL (200-900)
== END 2022-05-05 09:23 | disposition home or self-care (01) ==
LOC: HO.LAB 09:22
PROVIDERS: Nurse Practitioner Family; PCP Internal Medicine; Visit Provider Internal Medicine
DX: I10 Essential (primary) hypertension (principal); E78.00 Pure hypercholesterolemia, unspecified
CPT/HCPCS: 36415; 80053; 80061; 82306; 82607; 82746; 84443; 85027

== ENCOUNTER → 2022-05-10 12:49 | Outpatient (REF) | payer OTHER, SELFPAY | LOC: HO.SL 12:49 | PROVIDERS: PCP Internal Medicine; Visit Provider Internal Medicine | DX: G47.33 Obstructive sleep apnea (adult) (pediatric) (principal) | CPT/HCPCS: 95806 ==

== ENCOUNTER → 2022-06-17 14:46 | Outpatient (BNVA) | payer OTHER, SELFPAY | PROVIDERS: PCP Internal Medicine; Referring Provider Internal Medicine; Visit Provider Internal Medicine | DX: R07.2 Precordial pain (principal); I10 Essential (primary) hypertension | CPT/HCPCS: 93005; 99202 ==

== ENCOUNTER 2022-07-14 10:10 | Outpatient (REF) | payer OTHER, SELFPAY ==
[2022-07-14 11:42] LABS: Alanine Aminotransferase 19 U/L (0-40); Albumin Level 4.9 g/dL (3.5-5.0); Alkaline Phosphatase 120 U/L (39-117); Anion Gap 11 (12-20); Aspartate Amino Transferase 21 U/L (5-37); Bilirubin Total 0.8 mg/dL (0.0-1.0); Blood Urea Nitrogen 12 mg/dL (9-16); Calcium 9.5 mg/dL (8.4-10.2); Carbon Dioxide 26 mmol/L (22-29); Chloride 103 mmol/L (96-108); Cholesterol 223 mg/dL; Estimated Glomerular Filt Rate > 60; Glucose Fasting 91 mg/dL (60-99); HDL Cholesterol 47 mg/dL; LDL Cholesterol Calculated 159 mg/dl; Potassium 3.9 mmol/L (3.3-5.1); Sodium 136 mmol/L (135-145); Total Protein 7.9 g/dL (6.5-8.0); Triglycerides 87 mg/dL
[2022-07-14 12:03] LABS: Vitamin D 25-OH Total 12.8 ng/mL (>30)
[2022-07-14 12:06] LABS: Folate 9.8 ng/mL (> or = 4.0); Vitamin B12 304 pg/mL (200-900)
== END 2022-07-14 10:11 | disposition home or self-care (01) ==
LOC: HO.LAB 10:10
PROVIDERS: PCP Internal Medicine; Visit Provider Internal Medicine
DX: E78.5 Hyperlipidemia, unspecified (principal); E55.9 Vitamin D deficiency, unspecified; E53.8 Deficiency of other specified B group vitamins; I10 Essential (primary) hypertension
CPT/HCPCS: 36415; 80053; 80061; 82306; 82607; 82746

== ENCOUNTER 2022-08-09 08:16 | Outpatient (REF) | payer OTHER, SELFPAY | END 2022-08-09 08:17 | disposition home or self-care (01) | LOC: HO.MRI 08:16 | PROVIDERS: Visit Provider Internal Medicine | DX: Z13.89 Encounter for screening for other disorder (principal) ==

== ENCOUNTER 2022-09-06 09:49 | Outpatient (RCR) | payer OTHER, SELFPAY ==
[2022-09-06 10:10] VITALS: BP 154/96; PULSE 75
--- NOTE | 2022-09-06 11:15 | MHC.PT.EP ---
[facility] [place] Office [place] Office [place] Office [address] Darren Aldridge [address] [phone] F: [phone] F: [phone] F: [phone] F: [phone] Physical Therapy Plan of Care Date of Evaluation: Date of Surgery: NA Diagnosis: Dizziness and giddness Assessment: Francis is a 36 year old male who is referred to PT for dizziness and giddiness . He reports of having symptoms of dizziness for about a year. He describes it as feeling unsteady and is present with standing up after bending over for a long, prolonged periods of neck flexion while working and looking up. His symptoms last for a few minutes. He denies any nausea of vomiting. On PT examination he presented with intact visual tracking, saccades, smooth purusit, and negative head thrust. He was negative for BPPV in B aguilar pikes and B roll test. He presented with intact static and dynamic balance with mild deviation to L with Fakuda. He is independent with all ADLs and he works a [employer]. He currently presents with very mild symptoms of vestibular hypofunction. He would benefit from trialing habituation and adaption exercises at home. He was advised to return to PT in case of worsening or lack of improvement in his symptoms. Frequency and Duration: The patient will be seen 1/week for 4 weeks. Short Term Goals: Nursing Home Goals: Patient to be able to functionally move in all planes and directions without provocation of dizziness to show return to PLOF in 4 weeks. Patient to be educated on symptoms and indications to return to therapy when needed min 4 weeks. Treatment Plan: Modalities to reduce pain, spasms and effusion. Manual therapy to restore motion and function. Therapeutic exercise to improve strength and flexibility. Neuromuscular re-education for posture and balance. Therapeutic activities to return to functional activities of daily living. Electronically signed by: Selene Singh PT DPT Please sign and return to therapist. Thank you for your referral.
--- NOTE | 2022-10-13 13:41 | MHC.PT.DC ---
[facility] [place] Office [place] [facility] [place] [facility] [address] Darren Aldridge [address] [phone] F: [phone] F: [phone] F: [phone] F: [phone] Physical Therapy Discharge Report Diagnosis: Dizziness and giddness Date of Surgery: NA Date of Evaluation: 09/06/22 Date of Discharge: 10/13/22 Treatments to Date: 1 Cancellations to Date: 0 No Shows to Date: Discharge Status: Discharge Summary: Francis has had no symptoms of vestibular dysfunction in over a month. He is therefore being d/c from PT. Electronically signed by: Selene Singh. PT DPT Please sign and return to therapist. Thank you for your referral.
== END 2022-10-13 13:42 | disposition home or self-care (01) ==
LOC: HO.PT 09:49
PROVIDERS: PCP Internal Medicine; Visit Provider Internal Medicine
DX: R42 Dizziness and giddiness (principal)
CPT/HCPCS: 97112; 97161

== ENCOUNTER 2022-12-17 21:13 | Emergency (ER) | payer OTHER, SELFPAY ==
--- NOTE | ~2022-12-17 | XR_ITS ---
EXAMINATION: XR CHEST CLINICAL INFORMATION: Chest pain. COMPARISON: Chest radiograph 07/03/2020. TECHNIQUE: Frontal view of the chest was obtained. FINDINGS: Normal appearance of the cardiomediastinal silhouette. No focal airspace opacity, pleural effusion or pneumothorax. No acute osseous findings. The visualized upper abdomen is within normal limits. XR/XR chest 1V IMPRESSION: No acute cardiopulmonary findings.
--- NOTE | 2022-12-17 21:26 | ECG_ITS ---
Test Reason : arm /chest pain Blood Pressure : / mmHG Vent. Rate : 081 BPM Atrial Rate : 081 BPM P-R Int : 168 ms QRS Dur : 092 ms QT Int : 396 ms P-R-T Axes : 045 -21 062 degrees QTc Int : 460 ms Normal sinus rhythm Inferior infarct , age undetermined Possible Anterior infarct , age undetermined - could be related to body habitus and lead placement Abnormal ECG No significant changes when compared with the previous EKG of 10 apr 2022 Referred By: Generic ED Physician Electronically Signed By:ADELA CHILD
[2022-12-17 21:57] VITALS: BP 135/84; PULSE 82; RESP 15; TEMP 36.4; O2SAT 98
[2022-12-17 22:00] VITALS: BP 135/84; PULSE 84; RESP 16; TEMP 36.8; O2SAT 99; BMI 27.9
[2022-12-17 22:11] LABS: MANUAL DIFF FLAG NO
[2022-12-17 22:13] LABS: Basophils Percent Auto 0.7 % (0-2); Eosinophils Absolute Auto 0.2 X10*3/uL (0.0-0.4); Eosinophils Percent Auto 2.5 % (0-4); Hematocrit 41.5 % (42.0-52.0); Hemoglobin 14.2 g/dl (14.0-18.0); Imm Gran Abs Auto 0.01 X10*3/uL (0.00-0.03); Imm Gran Pct Auto 0.2 % (0.0-0.4); Lymphocytes Absolute Auto 2.3 X10*3/uL (1.2-4.9); Lymphocytes Percent Auto 39.2 % (20-40); Mean Corpuscular HGB Conc 34.2 g/dl (31.0-36.0); Mean Corpuscular Volume 90.6 fL (80.0-98.0); Mean Platelet Volume 9.8 fL (9.4-12.4); Monocytes Absolute Auto 0.4 X10*3/uL (0.1-1.2); Monocytes Percent Auto 7.4 % (2-11); Platelet Count 255 X10*3/uL (160-400); Red Blood Count 4.58 X10*6/uL (4.60-5.80); Red Cell Distribution Width 12.5 % (11.0-16.0)
[2022-12-17 22:14] LABS: Appearance Urine Clear; Color Urine Yellow; Glucose Urine UA Negative (Negative); Leukocyte Esterase Urine Negative (Negative); Nitrite Urine Negative (Negative); PH 5.5 (5.0-9.0); Specific Gravity - Urine >= 1.030 (1.005-1.025); Urine Blood Negative (Negative); Urine Ketones Trace mg/dL (Negative); Urine Protein Negative (Neg-Trace)
[2022-12-17 22:34] LABS: Anion Gap 13 (12-20); Blood Urea Nitrogen 14 mg/dL (9-16); Calcium 9.2 mg/dL (8.4-10.2); Carbon Dioxide 23 mmol/L (22-29); Chloride 107 mmol/L (96-108); Creatinine Clr Calc Pharmacy 129.8; Estimated Glomerular Filt Rate > 60; Glucose Random 127 mg/dL (60-115); Potassium 3.6 mmol/L (3.3-5.1); Sodium 139 mmol/L (135-145)
[2022-12-17 22:39] LABS: Troponin-I High Sensitivity < 2.7 ng/L (<3.5-35.0)
--- NOTE | 2022-12-17 23:24 | ED.CHESTPAIN ---
HPI - Chest Pain General Chief Complaint: Chest Pain Stated Complaint: Chest pain Time Seen by Provider: 12/17/22 22:55 History of Present Illness HPI narrative: Patient is a 37-year-old male present today with having chest pain. The chest pain is over the right chest. It is sharp it is in constant been ongoing for 5 days. Not associated with any diaphoresis. Patient denies any new long distance travel patient had pain even when he was in [place] in a [place] approximately 5 days ago. Patient denies any leg swelling. Do not drive home he flew back. Denies any history of diabetes, high cholesterol, smoking, mi, family history of PA. No history of blood clots. No history of leg swelling. No fever no chills. No coughing or congestion or upper respiratory symptoms. Pain is made worse when he moves his right hand. Patient works as a [employer]. No history risk stratification done past Related Data Previous Rx's Medication Instructions Recorded cholecalciferol (vitamin D3) 50 50 mcg PO DAILY 90 days #90 caps 05/06/22 mcg (2,000 unit) capsule cyanocobalamin (vitamin B-12) 1,000 mcg IM Q4W 1 month #1 mL 07/16/22 1,000 mcg/mL injection solution ibuprofen 800 mg tablet 800 mg PO Q8H PRN pain 7 days #21 09/18/22 tabs amlodipine 10 mg tablet 10 mg PO DAILY #30 tabs 12/16/22 Allergies Allergy/AdvReac Type Severity Reaction Status Date / Time No Known Allergies Allergy Verified 07/27/22 08:28 [No Known Allergies*] Review of Systems Review of Systems: Positive chest pain Yes all other systems are reviewed and are negative [facility] Past Medical History Attestation statement: The following information was validated with the patient. Medical History Asthma Fatty liver Hypercholesterolemia Migraine Obstructive sleep apnea Renal calculi Vitamin B12 deficiency Vitamin D deficiency Surgical History History of tooth extraction Family History Family History Mother Hypertension Father Hypertension Son In good health Son In good health Son In good health Sister In good health Brother No problems noted. Social History Social History Household Members: Spouse and Family Household Members Other:: 5 Housing: House Do you presently have visiting nurse or other home services: No Alcohol intake: unknown Patient Tobacco Use Status: Never used Tobacco e-Cigarette/Vaping Use: Never Used Second Hand Smoke Exposure: No Advance Directives: No Advance Directives Information Provided: No service: No Current occupational status: employed Current occupational exposures/hazards: No Cognitive needs: No Hearing needs: No Vision needs: No Physical Exam Vital Signs: Vital Signs: Last Vital Signs Temp 98.2 F 12/17/22 22:00 Pulse 84 12/17/22 22:00 Resp 16 12/17/22 22:00 BP 135/84 12/17/22 22:00 Pulse Ox 99 12/17/22 22:00 O2 Del Method Room Air 12/17/22 22:00 BMI result Body Mass Index 27.9 Appearance: Alert. Oriented X3. No acute distress. Eyes: Pupils equal, round and reactive to light. ENT: Pharynx normal. Neck: Normal inspection. Neck supple. No lymph nodes noted. No crepitus CVS: Normal heart rate and rhythm. Pulses normal. Normal S1 and S2 Respiratory: No respiratory distress. Breath sounds normal. No Wheezing. No rales Abdomen: Soft and nontender. No rigidity. No distention. good BS x4 Skin: Skin warm and dry. Normal skin color. Normal skin turgor. Extremities: No lower extremity edema. Neurovascular intact to all extremities. No Lacerations. No Rash Neuro: Oriented X 3. No motor deficit. No sensory deficit. Moving all extermities. No slurred speech Medical Decision Making Medical Decision Making [facility] Narrative: 37 years old presents today with having chest pain the pain is over the right chest. It is sharp. It has been constant. His only risk factors being that she has hypertension. No history diabetes, mi, family history of PA. No history of recreational drug use. Pain is atypical with pain made worse with movement the patient's troponin is negative despite having the pain for 5 days. He has no risk factors of pulmonary emboli. His chest x-ray showed no evidence of pneumonia or pneumothorax. Currently in stable condition will discharge patient home heart score is less than 3 in stable condition Differential Diagnosis ACS, pneumonia, pneumothorax, PE, dissection Lab Data [facility] Lab Attestation statement: I reviewed the patient's lab results. 12/17/22 22:07 12/17/22 22:08 Labs: Lab Results 12/17/22 12/17/22 12/17/22 Range/Units 22:07 22:07 22:08 WBC 6.0 (4.8-10.8) X10*3/uL RBC 4.58 L (4.60-5.80) X10*6/uL Hgb 14.2 (14.0-18.0) g/dl Hct 41.5 L (42.0-52.0) % MCV 90.6 (80.0-98.0) fL MCH 31.0 (27.0-33.0) pg MCHC 34.2 (31.0-36.0) g/dl RDW 12.5 (11.0-16.0) % Plt Count 255 (160-400) X10*3/uL MPV 9.8 (9.4-12.4) fL Immature Gran % (Auto) 0.2 (0.0-0.4) % Neut % (Auto) 50.0 (45-73) % Lymph % (Auto) 39.2 (20-40) % [place] % (Auto) 7.4 (2-11) % Eos % (Auto) 2.5 (0-4) % Baso % (Auto) 0.7 (0-2) % Lymph # (Auto) 2.3 (1.2-4.9) X10*3/uL [place] # (Auto) 0.4 (0.1-1.2) X10*3/uL Eos # (Auto) 0.2 (0.0-0.4) X10*3/uL Baso # (Auto) 0.0 (0.0-0.2) X10*3/uL Abs Immat Gran (auto) 0.01 (0.00-0.03) X10*3/uL Absolute Neuts (auto) 3.0 (2.0-8.3) x10*3/uL Absolute Nucleated RBC 0.000 (0.0-0.012) X10*3/uL Nucleated RBC % (auto) 0.0 (0.0-0.2) /100WBC Sodium 139 (135-145) mmol/L Potassium 3.6 (3.3-5.1) mmol/L Chloride 107 (96-108) mmol/L Carbon Dioxide 23 (22-29) mmol/L Anion Gap 13 (12-20) BUN 14 (9-16) mg/dL Creatinine 0.88 (0.5-1.4) mg/dL Estim Creat Clear Calc 129.8 Estimated GFR > 60 Random Glucose 127 H (60-115) mg/dL Calcium 9.2 (8.4-10.2) mg/dL Troponin I High Sens < 2.7 (<3.5-35.0) ng/L Urine Color Urine Appearance Urine pH (5.0-9.0) Ur Specific [place] (1.005-1.025) Urine Protein (Neg-Trace) mg/dL Urine Glucose (UA) (Negative) mg/dL Urine Ketones (Negative) mg/dL Urine Blood (Negative) Urine Nitrite (Negative) Ur Leukocyte Esterase (Negative) 12/17/22 Range/Units 22:08 WBC (4.8-10.8) X10*3/uL RBC (4.60-5.80) X10*6/uL Hgb (14.0-18.0) g/dl Hct (42.0-52.0) % MCV (80.0-98.0) fL MCH (27.0-33.0) pg MCHC (31.0-36.0) g/dl RDW (11.0-16.0) % Plt Count (160-400) X10*3/uL MPV (9.4-12.4) fL Immature Gran % (Auto) (0.0-0.4) % Neut % (Auto) (45-73) % Lymph % (Auto) (20-40) % [place] % (Auto) (2-11) % Eos % (Auto) (0-4) % Baso % (Auto) (0-2) % Lymph # (Auto) (1.2-4.9) X10*3/uL [place] # (Auto) (0.1-1.2) X10*3/uL Eos # (Auto) (0.0-0.4) X10*3/uL Baso # (Auto) (0.0-0.2) X10*3/uL Abs Immat Gran (auto) (0.00-0.03) X10*3/uL Absolute Neuts (auto) (2.0-8.3) x10*3/uL Absolute Nucleated RBC (0.0-0.012) X10*3/uL Nucleated RBC % (auto) (0.0-0.2) /100WBC Sodium (135-145) mmol/L Potassium (3.3-5.1) mmol/L Chloride (96-108) mmol/L Carbon Dioxide (22-29) mmol/L Anion Gap (12-20) BUN (9-16) mg/dL Creatinine (0.5-1.4) mg/dL Estim Creat Clear Calc Estimated GFR Random Glucose (60-115) mg/dL Calcium (8.4-10.2) mg/dL Troponin I High Sens (<3.5-35.0) ng/L Urine Color Yellow Urine Appearance Clear Urine pH 5.5 (5.0-9.0) Ur Specific [place] >= 1.030 H (1.005-1.025) Urine Protein Negative (Neg-Trace) mg/dL Urine Glucose (UA) Negative (Negative) mg/dL Urine Ketones Trace (Negative) mg/dL Urine Blood Negative (Negative) Urine Nitrite Negative (Negative) Ur Leukocyte Esterase Negative (Negative) Independent Interpretation I performed an independent interpretation of an: EKG Interpretation: Sinus rhythm heart rate is 75 GA QRS QTC within normal limits there is inferior Q-wave noted patient's EKG is unchanged from previous Radiology Impression Discussion of test interpretation with radiology: I have reviewed the radiologist's reading. Chronic Conditions Patient?s care impacted by: Hypertension Discharge Plan Discharge Clinical Impression: Anterior chest wall pain Patient Disposition: Home, Self-Care Instructions: Chest Pain (ED) Prescriptions: No Action cholecalciferol (vitamin D3) 50 mcg (2,000 unit) capsule 50 mcg PO DAILY 90 Days Qty: 90 1RF cyanocobalamin (vitamin B-12) 1,000 mcg/mL solution 1,000 mcg IM Q4W 30 Days Qty: 1 0RF ibuprofen 800 mg tablet 800 mg PO Q8H PRN (Reason: pain) 7 Days Qty: 21 0RF amlodipine 10 mg tablet 10 mg PO DAILY Qty: 30 0RF
[2022-12-18] VITALS: BP 124/80; PULSE 88; RESP 16; O2SAT 98
== END 2022-12-18 00:20 | disposition home or self-care (01) ==
PROVIDERS: Emergency Provider Emergency Medicine Emergency Medical Services; PCP Internal Medicine
DX: R07.89 Other chest pain (principal); Z79.899 Other long term (current) drug therapy
CPT/HCPCS: 36415; 71045; 80048; 81003; 84484; 85025; 93005; 99283; 99284

== ENCOUNTER 2023-05-16 12:32 | Emergency (ER) | payer OTHER, SELFPAY ==
--- NOTE | ~2023-05-16 | XR_ITS ---
EXAMINATION: XR CHEST 2 VIEW CLINICAL INFORMATION: Chest pain COMPARISON: 07/19/2022 TECHNIQUE: PA and lateral views of the chest obtained. FINDINGS: The lungs are clear. There are no pleural effusions. The cardiomediastinal silhouette is normal. No bone lesion, rib fracture or pneumothorax is detected. XR/XR chest 2V IMPRESSION: No acute cardiopulmonary disease.
--- NOTE | 2023-05-16 12:34 | ECG_ITS ---
Test Reason : CHEST PAIN Blood Pressure : / mmHG Vent. Rate : 078 BPM Atrial Rate : 078 BPM P-R Int : 146 ms QRS Dur : 088 ms QT Int : 372 ms P-R-T Axes : 000 015 043 degrees QTc Int : 424 ms Normal sinus rhythm Inferior infarct (cited on or before 17-DEC-2022) Abnormal ECG When compared with ECG of 17-DEC-2022 21:26, No significant changes seen Referred By: Shasta Mckenzie Electronically Signed By:YOMI GRIMALDO MD
[2023-05-16 13:00] VITALS: BP 152/109; PULSE 78; RESP 16; TEMP 35.9; O2SAT 100; BMI 27.4
--- NOTE | 2023-05-16 13:03 | ED_ITS ---
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 for same with workup negative no recent change in pain quality nonsmoker no substance abuse Related Data Previous Rx's Medication Instructions Recorded cholecalciferol (vitamin D3) 50 50 mcg PO DAILY 90 days #90 caps 05/06/22 mcg (2,000 unit) capsule cyanocobalamin (vitamin B-12) 1,000 mcg IM Q4W 1 month #1 mL 07/16/22 1,000 mcg/mL injection solution ibuprofen 800 mg tablet 800 mg PO Q8H PRN pain 7 days #21 09/18/22 tabs amlodipine 10 mg tablet 10 mg PO DAILY #30 tabs 12/16/22 amlodipine 5 mg tablet 5 mg PO DAILY #90 tabs 05/16/23 hydrochlorothiazide 12.5 mg tablet 12.5 mg PO DAILY #90 tabs 05/16/23 Allergies Allergy/AdvReac Type Severity Reaction Status Date / Time No Known Allergies Allergy Verified 07/27/22 08:28 [No Known Allergies*] Review of Systems 2 Review of Systems: Yes all other systems are reviewed and are negative PMFSH Past Medical History Medical History Asthma Migraine Fatty liver Hypercholesterolemia Vitamin B12 deficiency Obstructive sleep apnea Renal calculi Vitamin D deficiency Surgical History History of tooth extraction Family History Family History Mother Hypertension Father Hypertension Son In good health Son In good health Son In good health Sister In good health Brother No problems noted. Social History Social History Household Members: Spouse and Family Household Members Other:: 5 Housing: House Do you presently have visiting nurse or other home services: No Alcohol intake: unknown Patient Tobacco Use Status: Never used Tobacco e-Cigarette/Vaping Use: Never Used Second Hand Smoke Exposure: No Advance Directives: No Advance Directives Information Provided: No service: No Current occupational status: employed Current occupational exposures/hazards: No Cognitive needs: No Hearing needs: No Vision needs: No Physical Exam ED Vital Signs: Vital Signs - 24 hr 05/16/23 13:00 05/16/23 17:45 05/16/23 18:00 Temperature 96.7 F L Pulse Rate 78 80 Respiratory Rate 16 20 Blood Pressure 152/109 H 144/99 H 129/90 H Pulse Oximetry 100 98 Oxygen Delivery Method Room Air Room Air BMI result Body Mass Index 27.4 Appearance: Alert. Oriented X3. No acute distress. Eyes: PERRLA, ENT: Pharynx normal. Oral Mucosa moist Neck: Normal inspection. Neck supple. CVS: Normal heart rate and rhythm. Pulses normal. Respiratory: No respiratory distress. Equal air entry bilateral, no wheezing/rales/rhonchi left chest wall tenderness+ Abdomen: Soft and nontender. Bowel sounds are present, no mass palpable, no CVA tenderness Skin: Skin warm and dry. Normal skin color. Normal skin turgor. Extremities: No lower extremity edema. No calf tenderness Neuro: Oriented X 3. Course Course Course Narrative: RME performed by Shasta Mckenzie PA-C. Patient is a 37 year old assigned male at presenting to the emergency department with left sided chest pain. Labs, imaging, and swabs ordered. Patient already seen by Cards who told him it was not his heart. Patient placed back in the waiting room pending room availability and results. Medical Decision Making Medical Decision Making [facility] Narrative: Patient has atypical pain for longstanding negative troponin negative EKG Advised to take ibuprofen/Tylenol for pain follow-up with PCP Differential Diagnosis Differential Diagnoses: The differential diagnosis associated with the presentation includes Chest wall pain/musculoskeletal/ACS/anxiety Lab Data [facility] Lab Attestation statement: I reviewed the patient's lab results. 05/16/23 13:15 05/16/23 13:15 Labs: Lab Results 05/16/23 Range/Units 13:15 WBC 6.5 (4.8-10.8) X10*3/uL RBC 5.38 (4.60-5.80) X10*6/uL Hgb 16.8 (14.0-18.0) g/dl Hct 48.0 (42.0-52.0) % MCV 89.2 (80.0-98.0) fL MCH 31.2 (27.0-33.0) pg MCHC 35.0 (31.0-36.0) g/dl RDW 12.1 (11.0-16.0) % Plt Count 305 (160-400) X10*3/uL MPV 9.7 (9.4-12.4) fL Immature Gran % (Auto) 0.3 (0.0-0.4) % Neut % (Auto) 58.2 (45-73) % Lymph % (Auto) 34.3 (20-40) % [place] % (Auto) 5.2 (2-11) % Eos % (Auto) 1.4 (0-4) % Baso % (Auto) 0.6 (0-2) % Lymph # (Auto) 2.2 (1.2-4.9) X10*3/uL [place] # (Auto) 0.3 (0.1-1.2) X10*3/uL Eos # (Auto) 0.1 (0.0-0.4) X10*3/uL Baso # (Auto) 0.0 (0.0-0.2) X10*3/uL Abs Immat Gran (auto) 0.02 (0.00-0.03) X10*3/uL Absolute Neuts (auto) 3.8 (2.0-8.3) x10*3/uL Absolute Nucleated RBC 0.000 (0.0-0.012) X10*3/uL Nucleated RBC % (auto) 0.0 (0.0-0.2) /100WBC PT 11.8 (11.1-13.3) SEC INR 1.0 (0.9-1.1) APTT 31.3 (26.0-36.4) SEC Sodium 142 (135-145) mmol/L Potassium 3.9 (3.3-5.1) mmol/L Chloride 105 (96-108) mmol/L Carbon Dioxide 29 (22-29) mmol/L Anion Gap 12 (12-20) BUN 11 (9-16) mg/dL Creatinine 0.94 (0.5-1.4) mg/dL Estim Creat Clear Calc 112.3 Estimated GFR > 60 Random Glucose 94 (60-115) mg/dL Calcium 9.9 D (8.4-10.2) mg/dL Magnesium 2.1 (1.6-2.6) mg/dL Total Bilirubin 0.7 (0.0-1.0) mg/dL AST 20 (5-37) U/L ALT 22 (0-40) U/L Alkaline Phosphatase 108 (39-117) U/L Troponin I High Sens < 2.7 (<3.5-35.0) ng/L Total Protein 8.3 H (6.5-8.0) g/dL Albumin 4.8 (3.5-5.0) g/dL Influenza Type A (PCR) NEGATIVE (Negative) Influenza Type B (PCR) NEGATIVE (Negative) RSV RNA Qual (PCR) NEGATIVE (Negative) SARS-CoV-2 RNA (RT-PCR) NEGATIVE (Negative) Independent Interpretation I performed an independent interpretation of an: EKG Interpretation: Normal sinus rhythm heart rate 78 beats per minute normal intervals normal axis no acute ST-T changes no acute ischemia Discharge Plan Discharge Clinical Impression: Atypical chest pain, Essential hypertension Patient Disposition: Home, Self-Care Instructions: Chronic Hypertension (ED), Chest Wall Pain (ED) Additional Instructions: Your chest pain is not from the heart origin likely musculoskeletal You have high blood pressure take blood pressure medication on time will change amlodipine to 5 mg daily along with hydrochlorothiazide 12.5 mg Normal blood pressure should be less than 135/85 Check blood pressure before taking medication and before going to bed Tylenol/Motrin for chest pain Follow-up with PCP Prescriptions: New amlodipine 5 mg tablet 5 mg PO DAILY Qty: 90 0RF hydrochlorothiazide 12.5 mg tablet 12.5 mg PO DAILY Qty: 90 0RF No Action cholecalciferol (vitamin D3) 50 mcg (2,000 unit) capsule 50 mcg PO DAILY 90 Days Qty: 90 1RF cyanocobalamin (vitamin B-12) 1,000 mcg/mL solution 1,000 mcg IM Q4W 30 Days Qty: 1 0RF ibuprofen 800 mg tablet 800 mg PO Q8H PRN (Reason: pain) 7 Days Qty: 21 0RF amlodipine 10 mg tablet 10 mg PO DAILY Qty: 30 0RF Interventions: ED Discharge Assessment Last Done: 05/16/23 18:26 Discharge Date/Time: 05/16/23 18:26
[2023-05-16 13:20] LABS: MANUAL DIFF FLAG NO
[2023-05-16 13:23] LABS: Basophils Percent Auto 0.6 % (0-2); Eosinophils Absolute Auto 0.1 X10*3/uL (0.0-0.4); Eosinophils Percent Auto 1.4 % (0-4); Hemoglobin 16.8 g/dl (14.0-18.0); Imm Gran Abs Auto 0.02 X10*3/uL (0.00-0.03); Imm Gran Pct Auto 0.3 % (0.0-0.4); Lymphocytes Absolute Auto 2.2 X10*3/uL (1.2-4.9); Lymphocytes Percent Auto 34.3 % (20-40); Mean Corpuscular Hemoglobin 31.2 pg (27.0-33.0); Mean Corpuscular Volume 89.2 fL (80.0-98.0); Mean Platelet Volume 9.7 fL (9.4-12.4); Monocytes Absolute Auto 0.3 X10*3/uL (0.1-1.2); Monocytes Percent Auto 5.2 % (2-11); Neutrophils Absolute Auto 3.8 x10*3/uL (2.0-8.3); Neutrophils Percent Auto 58.2 % (45-73); Platelet Count 305 X10*3/uL (160-400); Red Blood Count 5.38 X10*6/uL (4.60-5.80); Red Cell Distribution Width 12.1 % (11.0-16.0); White Blood Count 6.5 X10*3/uL (4.8-10.8)
[2023-05-16 13:29] LABS: Prothrombin Time 11.8 SEC (11.1-13.3)
[2023-05-16 13:32] LABS: Partial Thromboplastin Time 31.3 SEC (26.0-36.4)
[2023-05-16 13:37] LABS: Alanine Aminotransferase 22 U/L (0-40); Albumin Level 4.8 g/dL (3.5-5.0); Alkaline Phosphatase 108 U/L (39-117); Anion Gap 12 (12-20); Aspartate Amino Transferase 20 U/L (5-37); Bilirubin Total 0.7 mg/dL (0.0-1.0); Blood Urea Nitrogen 11 mg/dL (9-16); Calcium 9.9 mg/dL (8.4-10.2); Carbon Dioxide 29 mmol/L (22-29); Chloride 105 mmol/L (96-108); Creatinine Clr Calc Pharmacy 112.3; Estimated Glomerular Filt Rate > 60; Glucose Random 94 mg/dL (60-115); Magnesium 2.1 mg/dL (1.6-2.6); Potassium 3.9 mmol/L (3.3-5.1); Sodium 142 mmol/L (135-145); Total Protein 8.3 g/dL (6.5-8.0)
[2023-05-16 13:47] LABS: Troponin-I High Sensitivity < 2.7 ng/L (<3.5-35.0)
[2023-05-16 14:16] LABS: Influenza A PCR NEGATIVE (Negative); Influenza B PCR NEGATIVE (Negative); Resp Syncy Virus RNA Qual PCR NEGATIVE (Negative); SARS COV2 PCR INHOUSE NEGATIVE (Negative)
[2023-05-16 17:45] VITALS: BP 144/99; PULSE 80; RESP 20; O2SAT 98
[2023-05-16 18:00] VITALS: BP 129/90
== END 2023-05-16 18:26 | disposition home or self-care (01) ==
PROVIDERS: Physician Assistant Medical; Emergency Provider Internal Medicine; PCP Internal Medicine
DX: R07.89 Other chest pain (principal); I10 Essential (primary) hypertension; E78.00 Pure hypercholesterolemia, unspecified; Z91.148 Patient's other noncompliance with medication regimen for other reason; Z20.822 Contact with and (suspected) exposure to COVID-19; Z20.828 Contact with and (suspected) exposure to other viral communicable diseases
CPT/HCPCS: 0241U; 71046; 80053; 83735; 84484; 85025; 85610; 85730; 93005; 99283; 99284

== ENCOUNTER 2023-06-01 09:00 | Outpatient (AMB) | payer OTHER, SELFPAY ==
[2023-06-01 09:08] VITALS: BP 130/90; BMI 26.8
--- NOTE | 2023-06-01 09:08 | A.OFFPC_ITS ---
Vital Signs 06/01/23 09:08 Height 5 ft 11 in Weight 192 lb BMI 26.8 BP 130/90 H Blood Pressure Location Lt brachial Position Sitting Intake Visit Reasons: Annual Physical Intake Note: Patient here for a physical exam Patient Intake Representative Required: No Accompanied by: Self / Same As Patient Allergies No Known Allergies [No Known Allergies*] Allergy (Verified 06/01/23 09:09) Medication List - Last Reconciled 06/01/23 by Carmen Weller MD amlodipine 5 mg PO DAILY cholecalciferol (vitamin D3) 50 mcg PO DAILY 90 days ibuprofen 800 mg PO Q8H PRN 7 days Tobacco use date assessed: 07/27/22 Dental Screening Dental Screen Date: 06/01/23 Did you have a dental visit in the last 12 months?: No Did you have a dental problem in the last 6 months where you did not have access to dental care?: No Was dental information given to patient?: Patient has dentist HPI HPI Comments History of Present Illness Details This is a 37-year-old female that comes for his physical exam. No chest pain or shortness of breath. Blood pressure well controlled. [facility] Medical History (Updated 06/01/23 @ 11:04 by Carmen Weller MD) Asthma Migraine Fatty liver Hypercholesterolemia Vitamin B12 deficiency Obstructive sleep apnea Renal calculi Vitamin D deficiency Surgical History History of tooth extraction Family History (Updated 06/01/23 @ 09:25 by Carmen Weller MD) Mother No problems noted. Father Hypertension Son In good health Son In good health Son In good health Sister In good health Brother No problems noted. Social History (Updated 06/01/23 @ 09:22 by Carmen Weller MD) Household Members: Spouse and Family Household Members Other:: 5 Housing: House Do you presently have visiting nurse or other home services: No Alcohol intake: never Patient Tobacco Use Status: Never used Tobacco e-Cigarette/Vaping Use: Never Used Second Hand Smoke Exposure: No service: No Current occupational status: employed Current occupational exposures/hazards: No Cognitive needs: No Hearing needs: No Vision needs: Yes Questionnaire Thrive Questionnaire Date Thrive assessed: 07/27/22 DUGLAS-7 AMB Questionnaire DUGLAS-7 Date DUGLAS - 7 assessed: 07/27/22 Source: Developed by Drs. Ming Carrillo, Hoda Banuelos, Silvano Smith and colleagues, with an educational temo from [employer]. Review of Systems Const All systems reviewed & are unremarkable except as noted in HPI and below Eyes Reports no additional complaints, Denies change in vision and Denies other visual disturbances Card Denies chest pain at rest, Denies chest pain with activity, Denies edema, Denies irregular heart rhythm, Denies claudication, Denies dyspnea, Denies dyspnea on exertion, Denies orthopnea, Denies paroxysmal nocturnal dyspnea and Denies slow heart rate Resp Denies cough, Denies dyspnea and Denies dyspnea on exertion GI Denies abdominal pain, Denies change in bowel habits, Denies excessive flatus, Denies nausea and Denies vomiting Denies urinary hesitancy, Denies urinary incontinence and Denies urinary urgency Musc Denies abnormal gait, Denies atrophy, Denies deformity and Denies limited range of motion Skin/Breast Denies bleeding lesions, Denies changing lesions and Denies rash Neuro Denies abnormal gait, Denies behavioral changes, Denies confusion and Denies la ck of coordination Psych Denies behavioral changes and Denies confusion Physical exam (Primary Care) Vital Signs: Last Vital Signs BP 130/90 H 06/01/23 09:08 BMI result Body Mass Index 26.8 Tobacco/Smoking Status: Tobacco use Status Tobacco use date assessed 07/27/22 06/01/23 09:12 Patient Tobacco Use Status Never used Tobacco 06/01/23 09:22 Tobacco use type 05/05/22 09:22 e-Cigarette/Vaping Use Never Used 06/01/23 09:22 Thrive Assessment: Date of Thrive Assessment Date Thrive assessed 07/27/22 06/01/23 09:12 Const General: No confusion Orientation/consciousness: patient oriented x3 and No confusion HENMT Head: Yes normal to inspection, Yes normocephalic and Yes atraumatic Ears: external ears normal Eyes General: appearance normal, both eyes and all related structures Eyelids: Yes eyelids normal Conjunctivae: conjunctivae normal Neck Neck: Yes normal visual inspection and Yes supple Resp Effort & Inspection: normal respiratory effort Auscultation: clear to auscultation bilaterally Cardio Jugular venous distension: no JVD Rate: regular rate Rhythm: regular rhythm Heart sounds: S1 normal heart sound present and S2 normal heart sound present GI Inspection: Yes normal to inspection Palpation (GI): Soft to palpation and nontender Auscultation: normal bowel sounds Skin General skin exam: no rashes or lesions noted Neuro General: patient oriented x3, no focal motor deficits and No confusion Extrem General: Yes full ROM Psych Appearance: grossly normal Office Procedures Flu Questionnaire Does the patient have a severe egg allergy?: No Immunizations flu vacc [id number] 6mos up(PF) 60 mcg(15 mcgx4)/0.5 mL IM syringe Performing Provider: Carmen Weller MD [facility] Documented (not given) by: EDITH Wilkinson on 06/01/23 09:14 Reason Not Given: Patient Refused Assessment and Plan Assessment & Plan (1) Physical exam: Code(s): Z00.00 - Encounter for general adult medical examination without abnormal findings Plan: Repeat in a year. Orders: Orders Influenza [id number] Immunization Today Z23 - Encounter for immunization Vitamin D 25-OH Total Today E55.9 - Vitamin D deficiency, unspecified Lipid Panel Today E78.5 - Hyperlipidemia, unspecified Comprehensive Joshua. Panel Fast Today I10 - Essential (primary) hypertension XR shoulder LT min 2V Today M25.512 - Pain in left shoulder Coding Level of Care Code Est Pt Prev Care [id number]) Diagnoses Physical exam Z00.00 Time Spent (min) 31
== END 2023-06-01 09:34 | disposition home or self-care (01) ==
PROVIDERS: Visit Provider Internal Medicine
DX: Z00.00 Encounter for general adult medical examination without abnormal findings (principal)
CPT/HCPCS: 99395

== ENCOUNTER 2023-06-07 09:05 | Outpatient (REF) | payer OTHER, SELFPAY ==
--- NOTE | ~2023-06-07 | XR_ITS ---
EXAMINATION: XR SHOULDER, LEFT CLINICAL INFORMATION: Reason for Exam M25.512 - Pain in left shoulder COMPARISON: None TECHNIQUE: Four views of the shoulder. FINDINGS: No acute fracture or dislocation. Joint spaces are maintained without significant degenerative change. Soft tissues are unremarkable. XR/XR shoulder LT min 2V IMPRESSION: * No acute osseous abnormality.
[2023-06-07 10:13] LABS: Alanine Aminotransferase 20 U/L (0-40); Albumin Level 4.6 g/dL (3.5-5.0); Alkaline Phosphatase 103 U/L (39-117); Anion Gap 12 (12-20); Aspartate Amino Transferase 20 U/L (5-37); Bilirubin Total 0.9 mg/dL (0.0-1.0); Blood Urea Nitrogen 9 mg/dL (9-16); Calcium 9.3 mg/dL (8.4-10.2); Carbon Dioxide 27 mmol/L (22-29); Chloride 106 mmol/L (96-108); Cholesterol 226 mg/dL (<200); Estimated Glomerular Filt Rate > 60; Glucose Fasting 101 mg/dL (60-99); HDL Cholesterol 43 mg/dL (>40); LDL Cholesterol Calculated 167 mg/dL (<100); Potassium 3.7 mmol/L (3.3-5.1); Sodium 141 mmol/L (135-145); Total Protein 7.8 g/dL (6.5-8.0); Triglycerides 82 mg/dL (<150)
[2023-06-07 10:33] LABS: Vitamin D 25-OH Total 14.3 ng/mL (>30)
[2023-06-07 10:39] LABS: Folate 10.1 ng/mL (> or = 4.0); Vitamin B12 165 pg/mL (200-900)
== END 2023-06-07 09:06 | disposition home or self-care (01) ==
LOC: HO.LAB 09:05
PROVIDERS: PCP Internal Medicine; Visit Provider Internal Medicine
DX: M25.512 Pain in left shoulder (principal); I10 Essential (primary) hypertension; E78.5 Hyperlipidemia, unspecified; E53.8 Deficiency of other specified B group vitamins; E55.9 Vitamin D deficiency, unspecified
CPT/HCPCS: 36415; 73030; 80053; 80061; 82306; 82607; 82746

== ENCOUNTER 2023-06-13 09:22 | Outpatient (REF) | payer OTHER, SELFPAY ==
[2023-06-13 10:43] LABS: Alanine Aminotransferase 18 U/L (0-40); Albumin Level 4.6 g/dL (3.5-5.0); Alkaline Phosphatase 100 U/L (39-117); Anion Gap 12 (12-20); Aspartate Amino Transferase 18 U/L (5-37); Bilirubin Total 0.9 mg/dL (0.0-1.0); Blood Urea Nitrogen 9 mg/dL (9-16); Calcium 9.6 mg/dL (8.4-10.2); Carbon Dioxide 27 mmol/L (22-29); Chloride 105 mmol/L (96-108); Cholesterol 218 mg/dL (<200); Estimated Glomerular Filt Rate > 60; Glucose Fasting 100 mg/dL (60-99); HDL Cholesterol 43 mg/dL (>40); LDL Cholesterol Calculated 162 mg/dL (<100); Potassium 3.8 mmol/L (3.3-5.1); Sodium 140 mmol/L (135-145); Total Protein 7.8 g/dL (6.5-8.0); Triglycerides 67 mg/dL (<150)
[2023-06-13 10:59] LABS: Vitamin D 25-OH Total 16.3 ng/mL (>30)
[2023-06-16 20:48] LABS: Intrinsic Factor Antibodies Negative (Negative)
[2023-06-18 22:58] LABS: Parietal Cell Antibody 80.1 Unit (<=20.0)
== END 2023-06-13 09:23 | disposition home or self-care (01) ==
LOC: HO.LAB 09:22
PROVIDERS: PCP Internal Medicine; Visit Provider Internal Medicine
DX: I10 Essential (primary) hypertension (principal); E78.5 Hyperlipidemia, unspecified; E53.8 Deficiency of other specified B group vitamins; E55.9 Vitamin D deficiency, unspecified
CPT/HCPCS: 36415; 80053; 80061; 82306; 83516; 86340

== ENCOUNTER 2023-06-13 09:38 | Outpatient (AMB) | payer OTHER, SELFPAY ==
--- NOTE | 2023-06-13 11:19 | AM.OFFVISNUR ---
Intake Intake Visit Reasons: b12 Allergies No Known Allergies [No Known Allergies*] Allergy (Verified 06/01/23 09:09) Office Meds cyanocobalamin (vitamin B-12) 1,000 mcg/mL injection solution Performing Provider: Carmen Weller MD [facility] Administered by: Luigi Enrique RN on 06/13/23 09:55 Dose Route Admin Location Dispensed Lot Number Expiration Date [facility] Injection Operator 1,000 mcg IM left deltoid 1 mL [id number] 12/25/24 12574-354-90 [employer] Comments: consented for B12 injection and tolerated well. Coding Assessment & Plan Assessment & Plan Orders: Orders AMB Vitamin B12 Injection Patient Supplied Today E53.8 - Deficiency of other specified B group vitamins
== END 2023-06-13 10:00 | disposition home or self-care (01) ==
PROVIDERS: PCP Internal Medicine; Visit Provider Internal Medicine
DX: E53.8 Deficiency of other specified B group vitamins (principal)
CPT/HCPCS: 96372; J3420

== ENCOUNTER 2023-08-09 15:52 | Emergency (ER) | payer OTHER, SELFPAY ==
--- NOTE | ~2023-08-09 | CT_ITS ---
EXAMINATION: CT ABDOMEN AND PELVIS WITHOUT CONTRAST CLINICAL INFORMATION: Right flank/groin pain, RO stones COMPARISON: CT abdomen and pelvis without contrast 04/09/2022 TECHNIQUE: Multidetector volumetric imaging was performed from the superior aspect of the liver through the pubic symphysis. Sagittal and coronal reformatted images were obtained on the technologist's workstation. This CT examination was performed using dose optimization techniques as appropriate, variously including the following: *Automated exposure control *Adjustment of mA and/or kV according to patient size (this includes techniques or standardized protocols for targeted exams where dose is matched to indication/reason for exam; i.e. extremities or head) *Use of iterative reconstruction technique DLP: 571 mGy-cm FINDINGS: LUNG BASES: The visualized lung bases are unremarkable. LIVER, GALLBLADDER, AND BILIARY TREE: The liver is normal in size, shape, and attenuation. No focal hepatic lesion or biliary ductal dilatation is present. The gallbladder is unremarkable with no evidence of radiopaque gallstones, gallbladder wall thickening, or obvious pericholecystic inflammatory changes. PANCREAS: Unremarkable. SPLEEN: Unremarkable. ADRENAL GLANDS: Unremarkable. KIDNEYS AND URETERS: There is a 4 mm calculus in the upper right ureter (series 4 image 328). There is mild right hydronephrosis. Right upper pole renal cyst. BLADDER: Unremarkable. GASTROINTESTINAL TRACT: The small and large bowel are unremarkable. The appendix is unremarkable. ABDOMINAL WALL: No significant hernia is appreciated. LYMPH NODES: Normal. VASCULAR: Unremarkable. PELVIC VISCERA: Unremarkable. OSSEOUS STRUCTURES: Unremarkable. CT/CT abdomen pelvis wo IV con IMPRESSION: 4 mm calculus in the upper right ureter with mild right hydronephrosis. Fleischner guidelines were followed.
[2023-08-09 16:15] VITALS: BP 155/101; PULSE 89; RESP 18; TEMP 36.4; O2SAT 99; BMI 27.2
--- NOTE | 2023-08-09 16:23 | ED.GENADULT ---
HPI - General Adult General Chief complaint: Abdominal Pain Stated complaint: abd and back pain Time Seen by Provider: 08/09/23 23:42 Source: patient Mode of arrival: ambulatory History of Present Illness HPI narrative: 37-year-old male has a history of renal colic and presents with right flank pain and associated dysuria with nausea but no vomiting and denies any fevers or chills at approximately 15:30 this afternoon. Since that time he has taken ibuprofen and currently has no pain. Related Data Previous Rx's Medication Instructions Recorded amlodipine 5 mg tablet 5 mg PO DAILY #90 tabs 05/16/23 cholecalciferol (vitamin D3) 50 50 mcg PO DAILY 90 days #90 caps 06/07/23 mcg (2,000 unit) capsule cyanocobalamin (vitamin B-12) 1,000 mcg IM Q4W 4 weeks #1 mL 06/09/23 1,000 mcg/mL injection solution syringe (disposable) 1 mL (BD Bulk #1 ea 06/09/23 Syringe Slip Tip) ketorolac 10 mg tablet 10 mg PO Q6H PRN pain 5 days #20 08/10/23 tabs prednisone 20 mg tablet 20 mg PO DAILY #4 tabs 08/10/23 tamsulosin 0.4 mg capsule (Flomax) 0.4 mg PO BEDTIME #4 caps 08/10/23 Allergies Allergy/AdvReac Type Severity Reaction Status Date / Time No Known Allergies Allergy Verified 08/09/23 16:18 [No Known Allergies*] Review of Systems Review of Systems: Pertinent positives and negatives as stated in HPI [facility] Past Medical History Source: nursing notes reviewed Medical History Asthma Migraine Fatty liver Hypercholesterolemia Vitamin B12 deficiency Obstructive sleep apnea Renal calculi Vitamin D deficiency Surgical History History of tooth extraction Family History Family History Mother No problems noted. Father Hypertension Son In good health Son In good health Son In good health Sister In good health Brother No problems noted. Social History Social History Household Members: Spouse and Family Household Members Other:: 5 Housing: House Do you presently have visiting nurse or other home services: No Alcohol intake: never Patient Tobacco Use Status: Never used Tobacco e-Cigarette/Vaping Use: Never Used Second Hand Smoke Exposure: No Advance Directives: No Advance Directives Information Provided: No service: No Current occupational status: employed Current occupational exposures/hazards: No Cognitive needs: No Hearing needs: No Vision needs: Yes Physical Exam ED Vital Signs: Vital Signs - 24 hr 08/09/23 16:15 08/09/23 21:37 08/09/23 23:54 Temperature 97.5 F 98.2 F 98.1 F Pulse Rate 89 86 89 Respiratory Rate 18 18 16 Blood Pressure 155/101 H 145/81 H 134/90 H Pulse Oximetry 99 96 97 Oxygen Delivery Method Room Air Room Air Room Air BMI result Body Mass Index 27.2 VITAL SIGNS: Reviewed. GENERAL: Well developed, well nourished, in no acute distress. HEAD: Normocephalic/atraumatic EYES: PERRLA, EOMI LUNGS: Normal breath sounds. No adventitious sounds or accessory muscle use. SpO2<97> CARDIOVASCULAR: Regular rate and rhythm without noted murmurs ABDOMEN: Soft, non-tender, non-distended with bowel sounds. MUSCULOSKELETAL: No tenderness, deformities, or effusions noted on gross inspection. EXTREMITIES: No cyanosis, clubbing or edema. SKIN: Inspection of the skin reveals no rashes NEUROLOGIC: Alert and oriented x 4. Strength and sensation to light touch were grossly intact x 4. Course Course Course Narrative: Patient complains of right-sided flank pain radiating to the groin that developed over the last 36 hours, very similar to prior kidney stone, no vomiting no fever CT ordered and lab sent This is rapid medical exam and triage pending full evaluation and dispo by ER provider Medical Decision Making Medical Decision Making MDM Narrative: 37-year-old male with history and clinical presentation, DDX: Renal colic, UTI, low clinical suspicion for cholecystitis or appendicitis. I reviewed all investigations and hematologic indices are negative for leukocytosis/left shift/anemia/thrombocytopenia. Chemistry indices do not demonstrate an LIS or electrolyte/liver enzyme derangements. Urinalysis significant for microscopic hematuria. Otherwise, no evidence of infection. CT scan demonstrates 4 mm calculus in the right proximal ureter with mild right hydronephrosis. I discussed everything with the patient at bedside and he understands that he will be discharged on a regimen of medications and given a referral to follow-up with urology in the morning. Differential Diagnosis Differential Diagnoses: The differential diagnosis associated with the presentation includes Please see discussion above Admission/Observation Consideration of admission/observation: Escalation of care including admission/observation considered Please see the discussion above Lab Data MDM Lab Attestation statement: I reviewed the patient's lab results. Please see the discussion above 08/09/23 16:56 08/09/23 16:56 Labs: Lab Results 08/09/23 08/09/23 Range/Units 16:56 21:13 WBC 6.7 (4.8-10.8) X10*3/uL RBC 4.84 (4.60-5.80) X10*6/uL Hgb 15.1 (14.0-18.0) g/dl Hct 44.2 (42.0-52.0) % MCV 91.3 (80.0-98.0) fL MCH 31.2 (27.0-33.0) pg MCHC 34.2 (31.0-36.0) g/dl RDW 12.2 (11.0-16.0) % Plt Count 266 (160-400) X10*3/uL MPV 9.9 (9.4-12.4) fL Immature Gran % (Auto) 0.3 (0.0-0.4) % Neut % (Auto) 59.0 (45-73) % Lymph % (Auto) 33.0 (20-40) % [place] % (Auto) 5.4 (2-11) % Eos % (Auto) 1.7 (0-4) % Baso % (Auto) 0.6 (0-2) % Lymph # (Auto) 2.2 (1.2-4.9) X10*3/uL [place] # (Auto) 0.4 (0.1-1.2) X10*3/uL Eos # (Auto) 0.1 (0.0-0.4) X10*3/uL Baso # (Auto) 0.0 (0.0-0.2) X10*3/uL Abs Immat Gran (auto) 0.02 (0.00-0.03) X10*3/uL Absolute Neuts (auto) 3.9 (2.0-8.3) x10*3/uL Absolute Nucleated RBC 0.000 (0.0-0.012) X10*3/uL Nucleated RBC % (auto) 0.0 (0.0-0.2) /100WBC Sodium 141 (135-145) mmol/L Potassium 3.5 (3.3-5.1) mmol/L Chloride 105 (96-108) mmol/L Carbon Dioxide 27 (22-29) mmol/L Anion Gap 13 (12-20) BUN 14 (9-16) mg/dL Creatinine 1.21 (0.5-1.4) mg/dL Estim Creat Clear Calc 87.2 Estimated GFR > 60 Random Glucose 136 H (60-115) mg/dL Calcium 9.1 (8.4-10.2) mg/dL Total Bilirubin 0.5 (0.0-1.0) mg/dL Direct Bilirubin 0.2 (0.0-0.5) mg/dL AST 21 (5-37) U/L ALT 20 (0-40) U/L Alkaline Phosphatase 106 (39-117) U/L Total Protein 7.5 (6.5-8.0) g/dL Albumin 4.5 (3.5-5.0) g/dL Urine Color Yellow Urine Appearance Cloudy Urine pH 7.0 (5.0-9.0) Ur Specific [place] 1.015 (1.005-1.025) Urine Protein Negative (Neg-Trace) mg/dL Urine Glucose (UA) Negative (Negative) mg/dL Urine Ketones Negative (Negative) mg/dL Urine Blood Moderate (2+) H (Negative) Urine Nitrite Negative (Negative) Ur Leukocyte Esterase Negative (Negative) Urine RBC 11-20 H (0-2) /HPF Urine WBC 0-5 (0-5) /HPF Ur Squamous Epith Cells 0-2 (0-2) /HPF Urine Bacteria None Seen (None Seen) Hyaline Casts 3-5 (0-2) /LPF Radiology Impression Discussion of test interpretation with radiology: I have reviewed the radiologist's reading. Radiologist Impression: Please see the discussion above External Record Review External record reviewed: Outpatient record, Prior outpatient labs and Prior outpatient radiology Chronic Conditions Patient?s care impacted by: Hypertension Critical Care Time Critical Care Time Critical Care Time: Yes Total Critical Care Time: 30 Attestation: I personally attest to this time spent taking care of the patient. Discharge Plan Discharge Clinical Impression: Renal colic, Hydronephrosis, Ureterolithiasis Patient Disposition: Home, Self-Care Instructions: Renal Colic (ED), Low Oxalate Diet (ED), Hydronephrosis (ED), Ureteral Stones (ED) Additional Instructions: 1. Tylenol 1000 mg, por v?a oral, cada 6 horas seg?n sea necesario para controlar el dolor. No exceda los 4000 mg en 24 horas. 2. Bartley la medicaci?n prescrita. 3. Le stout remitido para un seguimiento con urolog?a y debe llamar al consultorio por la ma?carmen para programar shawn efrain para shawn reevaluaci?n y un tratamiento ambulatorio adicional. Regrese a la valeria de emergencias si los s?ntomas empeoran. 1. Tylenol 1000 mg, orally, every 6 hours as needed for pain control. Do not exceed 4000 mg within 24 hours. 2. Please take the prescribed medication. 3. You have been given a referral to follow-up with urology and should call the office in the morning to set up an appointment for re-evaluation and further outpatient management. Return to the ER for any worsening symptoms. Prescriptions: New prednisone 20 mg tablet 20 mg PO DAILY Qty: 4 0RF tamsulosin [Flomax] 0.4 mg capsule 0.4 mg PO BEDTIME Qty: 4 0RF ketorolac 10 mg tablet 10 mg PO Q6H PRN (Reason: pain) 5 Days Qty: 20 0RF Rx Instructions: Patient received Toradol in the emergency room Discontinued ibuprofen 800 mg tablet 800 mg PO Q8H PRN (Reason: pain) 7 Days Qty: 21 0RF No Action cholecalciferol (vitamin D3) 50 mcg (2,000 unit) capsule 50 mcg PO DAILY 90 Days Qty: 90 1RF cyanocobalamin (vitamin B-12) 1,000 mcg/mL solution 1,000 mcg IM Q4W 28 Days Qty: 1 2RF (DME) BD Bulk Syringe Slip Tip 1 mL syringe See Rx Instructions .Route Qty: 1 2RF Rx Instructions: As directed amlodipine 5 mg tablet 5 mg PO DAILY Qty: 90 0RF Referrals: Carmen Henry MD [Primary Care Provider] - Parag Ulrich MD [Physician] - Print Language: Vietnamese
[2023-08-09 17:01] LABS: MANUAL DIFF FLAG NO
[2023-08-09 17:11] LABS: Basophils Percent Auto 0.6 % (0-2); Eosinophils Absolute Auto 0.1 X10*3/uL (0.0-0.4); Eosinophils Percent Auto 1.7 % (0-4); Hematocrit 44.2 % (42.0-52.0); Hemoglobin 15.1 g/dl (14.0-18.0); Imm Gran Abs Auto 0.02 X10*3/uL (0.00-0.03); Imm Gran Pct Auto 0.3 % (0.0-0.4); Lymphocytes Absolute Auto 2.2 X10*3/uL (1.2-4.9); Mean Corpuscular HGB Conc 34.2 g/dl (31.0-36.0); Mean Corpuscular Hemoglobin 31.2 pg (27.0-33.0); Mean Corpuscular Volume 91.3 fL (80.0-98.0); Mean Platelet Volume 9.9 fL (9.4-12.4); Monocytes Absolute Auto 0.4 X10*3/uL (0.1-1.2); Monocytes Percent Auto 5.4 % (2-11); Neutrophils Absolute Auto 3.9 x10*3/uL (2.0-8.3); Platelet Count 266 X10*3/uL (160-400); Red Blood Count 4.84 X10*6/uL (4.60-5.80); Red Cell Distribution Width 12.2 % (11.0-16.0); White Blood Count 6.7 X10*3/uL (4.8-10.8)
[2023-08-09 17:17] LABS: Alanine Aminotransferase 20 U/L (0-40); Albumin Level 4.5 g/dL (3.5-5.0); Alkaline Phosphatase 106 U/L (39-117); Anion Gap 13 (12-20); Aspartate Amino Transferase 21 U/L (5-37); Bilirubin Direct 0.2 mg/dL (0.0-0.5); Bilirubin Total 0.5 mg/dL (0.0-1.0); Blood Urea Nitrogen 14 mg/dL (9-16); Calcium 9.1 mg/dL (8.4-10.2); Carbon Dioxide 27 mmol/L (22-29); Chloride 105 mmol/L (96-108); Creatinine Clr Calc Pharmacy 87.2; Estimated Glomerular Filt Rate > 60; Glucose Random 136 mg/dL (60-115); Potassium 3.5 mmol/L (3.3-5.1); Sodium 141 mmol/L (135-145); Total Protein 7.5 g/dL (6.5-8.0)
--- NOTE | 2023-08-09 20:30 | MHC.EDTECH ---
Patient not able to give urine sample at this time .
[2023-08-09 21:19] LABS: Appearance Urine Cloudy; Color Urine Yellow; Glucose Urine UA Negative (Negative); Leukocyte Esterase Urine Negative (Negative); Nitrite Urine Negative (Negative); Specific Gravity - Urine 1.015 (1.005-1.025); UMIC TRIGGER UACC YES; Urine Blood Moderate (2+) (Negative); Urine Ketones Negative (Negative); Urine Protein Negative (Neg-Trace)
[2023-08-09 21:22] LABS: Bacteria Urine None Seen (None Seen); Squamous Epithelial Cell Urine 0-2 /HPF (0-2); WBC Urine 0-5 /HPF (0-5)
[2023-08-09 21:37] VITALS: BP 145/81; PULSE 86; RESP 18; TEMP 36.8; O2SAT 96
[2023-08-09 23:54] VITALS: BP 134/90; PULSE 89; RESP 16; TEMP 36.7; O2SAT 97
[2023-08-10] MEDS: Ketorolac Tromethamine 15 MG/ML VIAL IM (00:26)
--- NOTE | 2023-08-10 00:34 | PC.NURSE ---
Reviewed discharge instructions with pt. pt verbalized understanding, no sign of distress at upon discharge, pt with a steady gait.
== END 2023-08-10 00:35 | disposition home or self-care (01) ==
PROVIDERS: Physician Assistant Medical; Emergency Provider Student in an Organized Health Care Education/Training Program; PCP Internal Medicine
DX: N13.2 Hydronephrosis with renal and ureteral calculous obstruction (principal); R10.2 Pelvic and perineal pain; R30.0 Dysuria; R11.0 Nausea; Z79.899 Other long term (current) drug therapy
CPT/HCPCS: 36415; 74176; 80048; 80076; 81001; 85025; 96372; 99284; J1885

== ENCOUNTER 2023-08-16 08:54 | Emergency (ER) | payer OTHER, SELFPAY ==
[2023-08-16 09:11] VITALS: BP 155/100; PULSE 80; RESP 19; TEMP 36.6; O2SAT 99; BMI 26.5
[2023-08-16 09:39] LABS: Basophils Percent Auto 0.2 % (0-2); Eosinophils Absolute Auto 0.1 X10*3/uL (0.0-0.4); Eosinophils Percent Auto 1.8 % (0-4); Hematocrit 43.9 % (42.0-52.0); Hemoglobin 15.1 g/dl (14.0-18.0); Imm Gran Abs Auto 0.01 X10*3/uL (0.00-0.03); Imm Gran Pct Auto 0.2 % (0.0-0.4); Lymphocytes Absolute Auto 1.3 X10*3/uL (1.2-4.9); Lymphocytes Percent Auto 28.4 % (20-40); MANUAL DIFF FLAG NO; Mean Corpuscular HGB Conc 34.4 g/dl (31.0-36.0); Mean Corpuscular Hemoglobin 31.2 pg (27.0-33.0); Mean Corpuscular Volume 90.7 fL (80.0-98.0); Mean Platelet Volume 10.2 fL (9.4-12.4); Monocytes Absolute Auto 0.5 X10*3/uL (0.1-1.2); Monocytes Percent Auto 11.7 % (2-11); Neutrophils Absolute Auto 2.6 x10*3/uL (2.0-8.3); Neutrophils Percent Auto 57.7 % (45-73); Platelet Count 217 X10*3/uL (160-400); Red Blood Count 4.84 X10*6/uL (4.60-5.80); White Blood Count 4.4 X10*3/uL (4.8-10.8)
[2023-08-16 09:49] LABS: Appearance Urine Cloudy; Color Urine Dark Yellow; Glucose Urine UA Negative (Negative); Leukocyte Esterase Urine Trace (Negative); Nitrite Urine Negative (Negative); PH 5.5 (5.0-9.0); Specific Gravity - Urine >= 1.030 (1.005-1.025); UMIC TRIGGER UACC YES; Urine Blood Large (3+) (Negative); Urine Ketones Trace mg/dL (Negative); Urine Protein 100 (2+) mg/dL (Neg-Trace)
[2023-08-16 09:55] LABS: Bacteria Urine None Seen (None Seen); Hyaline Casts Urine 0-2 /LPF (0-2); RBC Urine >20 /HPF (0-2); Squamous Epithelial Cell Urine 0-2 /HPF (0-2); WBC Urine 0-5 /HPF (0-5)
[2023-08-16 09:55] LABS: Anion Gap 14 (12-20); Blood Urea Nitrogen 15 mg/dL (9-16); Carbon Dioxide 24 mmol/L (22-29); Chloride 106 mmol/L (96-108); Estimated Glomerular Filt Rate > 60; Glucose Random 101 mg/dL (60-115); Potassium 3.5 mmol/L (3.3-5.1); Sodium 140 mmol/L (135-145)
[2023-08-16] MEDS: Tamsulosin HCL 0.4 MG CAPSULE PO (10:18)
--- NOTE | 2023-08-16 10:30 | ED.ABDPAIN ---
HPI - Abdominal Pain General Chief Complaint: Abdominal Pain Stated Complaint: Kidney Stones Time Seen by Provider: 08/16/23 09:43 Source: patient Mode of arrival: ambulatory Limitations: language barrier History of Present Illness HPI narrative: History obtained with ed teacher. Patient with 4mm stone for 7 day, now with right lower pain going into his penis. He had chills and was worried that he had infection MD elicited complaint: abdominal pain and flank pain Onset (ago): day(s) Pain Consistency: intermittent Related Data Previous Rx's Medication Instructions Recorded amlodipine 5 mg tablet 5 mg PO DAILY #90 tabs 05/16/23 cholecalciferol (vitamin D3) 50 50 mcg PO DAILY 90 days #90 caps 06/07/23 mcg (2,000 unit) capsule cyanocobalamin (vitamin B-12) 1,000 mcg IM Q4W 4 weeks #1 mL 06/09/23 1,000 mcg/mL injection solution syringe (disposable) 1 mL (BD Bulk #1 ea 06/09/23 Syringe Slip Tip) ketorolac 10 mg tablet 10 mg PO Q6H PRN pain 5 days #20 08/10/23 tabs prednisone 20 mg tablet 20 mg PO DAILY #4 tabs 08/10/23 tamsulosin 0.4 mg capsule (Flomax) 0.4 mg PO BEDTIME #4 caps 08/10/23 naproxen 500 mg tablet (Naprosyn) 500 mg PO BID #20 tabs 08/16/23 tamsulosin 0.4 mg capsule (Flomax) 0.4 mg PO BEDTIME #30 caps 08/16/23 Allergies Allergy/AdvReac Type Severity Reaction Status Date / Time No Known Allergies Allergy Verified 08/09/23 16:18 [No Known Allergies*] Review of Systems Review of Systems Yes all other systems are reviewed and are negative Denies Sensory deficit (Neuro) [facility] Past Medical History Medical History Asthma Migraine Fatty liver Hypercholesterolemia Vitamin B12 deficiency Obstructive sleep apnea Renal calculi Vitamin D deficiency Surgical History History of tooth extraction Family History Family History Mother No problems noted. Father Hypertension Son In good health Son In good health Son In good health Sister In good health Brother No problems noted. Social History Social History Household Members: Spouse and Family Household Members Other:: 5 Housing: House Do you presently have visiting nurse or other home services: No Alcohol intake: never Patient Tobacco Use Status: Never used Tobacco e-Cigarette/Vaping Use: Never Used Second Hand Smoke Exposure: No Advance Directives: No Advance Directives Information Provided: Yes service: No Current occupational status: employed Current occupational exposures/hazards: No Cognitive needs: No Hearing needs: No Vision needs: Yes Physical Exam ED Vital Signs: Vital Signs - 24 hr 08/16/23 09:11 Temperature 98 F Pulse Rate 80 Respiratory Rate 19 Blood Pressure 155/100 H Pulse Oximetry 99 Oxygen Delivery Method Room Air BMI result Body Mass Index 26.5 Const General: healthy appearing Nutritional Appearance: average body habitus Orientation/consciousness: oriented to person and patient oriented x3 Limitations: no limitations HENMT Head: Yes normal to inspection Ears: external ears normal General nose exam: Normal external nose present Mouth: Normal oral and palatal mucosa present and oropharynx normal Throat: Yes posterior oropharynx normal Eyes General: appearance normal, both eyes and all related structures Neck Neck: Yes normal visual inspection Chest Chest palpation & inspection: normal inspection of the chest Resp Auscultation: clear to auscultation bilaterally Cardio Jugular venous distension: no JVD Rate: regular rate Rhythm: regular rhythm Heart sounds: S1 normal heart sound present and S2 normal heart sound present GI Inspection: Yes normal to inspection Palpation (GI): Soft to palpation, nontender and No hepatosplenomegaly present Auscultation: normal bowel sounds General: Yes no CVA tenderness Back/Spine/Pelvis Back: no CVA tenderness Skin General skin exam: no rashes or lesions noted Neuro General: oriented to person and patient oriented x3 Cranial nerves: Yes CN's II-XII intact bilaterally Motor exam (neuro): 5/5 motor strength present throughout Sensory Exam: No Sensory deficit (Neuro) Extrem General: Yes normal to inspection Psych Appearance: grossly normal Course Reevaluation(s) Reevaluation #1: patient with likely stone almost passing no evidence of infection will dc home Time: 10:34 Medical Decision Making Differential Diagnosis Differential Diagnoses: The differential diagnosis associated with the presentation includes (renal colic, pyelonephritis, UTI were all considered) Admission/Observation Consideration of admission/observation: Escalation of care including admission/observation considered (upon arrival patient was considered for admission) Lab Data Hematuria on UA consistent with stone 08/16/23 09:30 08/16/23 09:30 Labs: Lab Results 08/16/23 08/16/23 Range/Units 09:30 09:34 WBC 4.4 L (4.8-10.8) X10*3/uL RBC 4.84 (4.60-5.80) X10*6/uL Hgb 15.1 (14.0-18.0) g/dl Hct 43.9 (42.0-52.0) % MCV 90.7 (80.0-98.0) fL MCH 31.2 (27.0-33.0) pg MCHC 34.4 (31.0-36.0) g/dl RDW 12.0 (11.0-16.0) % Plt Count 217 (160-400) X10*3/uL MPV 10.2 (9.4-12.4) fL Immature Gran % (Auto) 0.2 (0.0-0.4) % Neut % (Auto) 57.7 (45-73) % Lymph % (Auto) 28.4 (20-40) % [place] % (Auto) 11.7 H (2-11) % Eos % (Auto) 1.8 (0-4) % Baso % (Auto) 0.2 (0-2) % Lymph # (Auto) 1.3 (1.2-4.9) X10*3/uL [place] # (Auto) 0.5 (0.1-1.2) X10*3/uL Eos # (Auto) 0.1 (0.0-0.4) X10*3/uL Baso # (Auto) 0.0 (0.0-0.2) X10*3/uL Abs Immat Gran (auto) 0.01 (0.00-0.03) X10*3/uL Absolute Neuts (auto) 2.6 (2.0-8.3) x10*3/uL Absolute Nucleated RBC 0.000 (0.0-0.012) X10*3/uL Nucleated RBC % (auto) 0.0 (0.0-0.2) /100WBC Sodium 140 (135-145) mmol/L Potassium 3.5 (3.3-5.1) mmol/L Chloride 106 (96-108) mmol/L Carbon Dioxide 24 (22-29) mmol/L Anion Gap 14 (12-20) BUN 15 (9-16) mg/dL Creatinine 0.91 (0.5-1.4) mg/dL Estim Creat Clear Calc 116.0 Estimated GFR > 60 Random Glucose 101 (60-115) mg/dL Calcium 9.0 (8.4-10.2) mg/dL Urine Color Dark Yellow Urine Appearance Cloudy Urine pH 5.5 (5.0-9.0) Ur Specific [place] >= 1.030 H (1.005-1.025) Urine Protein 100 (2+) H (Neg-Trace) mg/dL Urine Glucose (UA) Negative (Negative) mg/dL Urine Ketones Trace (Negative) mg/dL Urine Blood Large (3+) H (Negative) Urine Nitrite Negative (Negative) Ur Leukocyte Esterase Trace H (Negative) Urine RBC >20 H (0-2) /HPF Urine WBC 0-5 (0-5) /HPF Ur Squamous Epith Cells 0-2 (0-2) /HPF Urine Bacteria None Seen (None Seen) Hyaline Casts 0-2 (0-2) /LPF Independent Historian Clinical information obtained from an independent historian. History obtained from or confirmed by: Spouse External Record Review External record reviewed: Prior outpatient labs and Prior outpatient radiology Tests considered The following testing was considered but not selected: CT of abd/pelvis considered but patient with known stone and no evidence of infection so CT not performed Prescription Management I considered prescription management with: Antibiotic (no UTI seen) Chronic Conditions Patient?s care impacted by: Other (renal colic) Medications Administered Discontinued Medications Generic Name Dose Route Start Last Admin Trade Name Freq PRN Reason Stop Dose Admin Ketorolac Tromethamine 60 mg 08/16/23 10:04 08/16/23 10:21 Ketorolac Tromethamine 60 Mg/2 Ml Vial IM 08/16/23 10:05 Not Given ONCE ONE Tamsulosin HCl 0.4 mg 08/16/23 10:04 08/16/23 10:18 Tamsulosin Hcl 0.4 Mg Capsule PO 08/16/23 10:05 0.4 mg ONCE ONE Administration Discharge Plan Discharge Clinical Impression: Kidney stone Patient Disposition: Home, Self-Care Instructions: Kidney Stones (ED), How to Strain Your Urine (ED) Prescriptions: New tamsulosin [Flomax] 0.4 mg capsule 0.4 mg PO BEDTIME Qty: 30 0RF naproxen [Naprosyn] 500 mg tablet 500 mg PO BID Qty: 20 0RF No Action cholecalciferol (vitamin D3) 50 mcg (2,000 unit) capsule 50 mcg PO DAILY 90 Days Qty: 90 1RF cyanocobalamin (vitamin B-12) 1,000 mcg/mL solution 1,000 mcg IM Q4W 28 Days Qty: 1 2RF (DME) BD Bulk Syringe Slip Tip 1 mL syringe See Rx Instructions .Route Qty: 1 2RF Rx Instructions: As directed amlodipine 5 mg tablet 5 mg PO DAILY Qty: 90 0RF prednisone 20 mg tablet 20 mg PO DAILY Qty: 4 0RF tamsulosin [Flomax] 0.4 mg capsule 0.4 mg PO BEDTIME Qty: 4 0RF ketorolac 10 mg tablet 10 mg PO Q6H PRN (Reason: pain) 5 Days Qty: 20 0RF Rx Instructions: Patient received Toradol in the emergency room Referrals: Gregory Blackburn MD [Physician] - 5 days
== END 2023-08-16 10:56 | disposition home or self-care (01) ==
PROVIDERS: Emergency Provider Emergency Medicine; PCP Internal Medicine
DX: N20.0 Calculus of kidney (principal); R10.31 Right lower quadrant pain; Z79.899 Other long term (current) drug therapy
CPT/HCPCS: 36415; 80048; 81001; 85025; 99283; 99284

== ENCOUNTER 2023-10-13 14:57 | Outpatient (AMB) | payer OTHER, SELFPAY ==
--- NOTE | 2023-10-13 15:10 | A.OFFVIS_ITS ---
Intake Visit Reasons: ER Follow up/ureteral stone Intake Note: New Patient presents for initial visit for kidney stone Urology Medications: none Blood Thinner: none Agile Developer Required: Yes Agile Developer Name: ALEAH BARGER Nini ASCENCIO Accompanied by: Self / Same As Patient Allergies No Known Allergies [No Known Allergies*] Allergy (Verified 10/13/23 16:07) Medication List - Last Reconciled 10/13/23 by CHANELL Brodreick amlodipine 5 mg PO DAILY syringe (disposable) (BD Bulk Syringe Slip Tip) As directed HPI Comments Details: Francis is a very pleasant 37-year-old Icelandic-speaking male patient of Dr. Khalil. He has a past medical history of asthma, migraines, fatty liver, hypercholesteremia, vitamin B12 deficiency, sleep apnea, nephrolithiasis, and vitamin-D deficiency. He presents to the office today as a new patient for nephrolithiasis. In discussion with the patient today he reports having seeked emergency room care approximately 2 months ago for right-sided flank pain he had been experiencing at which time a CT of the abdomen was ordered and performed. These results reviewed with the patient today. There is a 4 mm calculus in the upper right ureter. There is mild right hydronephrosis. Right upper pole renal cysts. The bladder is unremarkable. Patient reports approximately 1 week after his ER visit he was able urinate his kidney stone. When asked he does report a longstanding history of nephrolithiasis however never requiring surgical intervention. When asked he does report episodes of nocturia he otherwise denies urinary urgency, urinary frequency, incontinence, hematuria, dysuria, foul smelling urine, changes to urinary stream, flank pain, fever, and or chills. He is happy with his current voiding parameters. Discussed at length potential causes of nocturia. Discussed correlation of sleep apnea and noc turia. Patient does report struggling with compliance of CPAP machine as he states he forgets to use it. In office urinalysis results reviewed with the patient today. He otherwise offers no other issues or concerns. [facility] Medical History Asthma Migraine Fatty liver Hypercholesterolemia Vitamin B12 deficiency Obstructive sleep apnea Renal calculi Vitamin D deficiency Surgical History History of tooth extraction Family History Mother No problems noted. Father Hypertension Son In good health Son In good health Son In good health Sister In good health Brother No problems noted. Social History Household Members: Spouse and Family Household Members Other:: 5 Housing: House Do you presently have visiting nurse or other home services: No Alcohol intake: never Patient Tobacco Use Status: Never used Tobacco e-Cigarette/Vaping Use: Never Used Second Hand Smoke Exposure: No service: No Current occupational status: employed Current occupational exposures/hazards: No Cognitive needs: No Hearing needs: No Vision needs: Yes Review of Systems Const Reports no additional complaints Eyes Reports no additional complaints ENT Reports no additional complaints Card Reports as per HPI Resp Reports as per HPI GI Reports no additional complaints Reports as per HPI Musc Reports no additional complaints Neuro Reports no additional complaints Psych Reports no additional complaints Endo Reports no additional complaints Agus/Lymph Reports no additional complaints Aller/Immun Reports no additional complaints Physical Exam Const General: cooperative, healthy appearing, comfortable, no acute distress, well developed, alert and awake Orientation/consciousness: patient oriented x3 Limitations: no limitations HEENT Head: Yes normal to inspection, Yes normocephalic and Yes atraumatic Ears: hearing grossly normal bilaterally Eyes General: appearance normal, both eyes and all related structures Neck Neck: Yes normal visual inspection and Yes trachea midline Chest Chest palpation & inspection: normal inspection of the chest Resp Effort & Inspection: normal respiratory effort and able to speak in complete sentences Cardio Rate: regular rate GI Inspection: Yes normal to inspection General: Yes no CVA tenderness Back/Spine/Pelvis Back: no CVA tenderness Skin General skin exam: no rashes or lesions noted Neuro General: patient oriented x3 Extrem General: Yes normal to inspection Psych Appearance: grossly normal and well kempt Mental Status: mental status grossly normal Speech and movement: Normal speech and movement present and Clear speech present Affect: normal affect Attitude: cooperative Thought process: Normal thought process present Thought content: Normal thought content present Insight: Fair insight present (Psych) Judgement: Fair judgement present (Psych) Results AMB Urinalysis, Automated UA Leukoctes 0 Stewart/uL Last Edit by Araceli Powell on 10/13/23 15:27 UA Nitrite Negative Last Edit by Araceli Powell on 10/13/23 15:27 UA Urobilinogen 0.2 mg/dL Last Edit by Brandyce Briannass on 10/13/23 15:27 UA Protein 15 mg/dL Last Edit by Brandyce Andre on 10/13/23 15:27 UA pH 6.0 Last Edit by Brandyce Andre on 10/13/23 15:27 UA Blood 0 Salas/uL Last Edit by Geoffyce Andre on 10/13/23 15:27 UA Specific [place] 1.020 Last Edit by Brandyce Andre on 10/13/23 15:27 UA Ketone Positive Last Edit by Geoffyce Andre on 10/13/23 15:27 UA Bilirubin 0 mg/dL Last Edit by Araceli Powell on 10/13/23 15:27 UA Glucose 0 mg/dL Last Edit by Geoffyccourtney Powell on 10/13/23 15:27 Results Reviewed Results Reviewed: Laboratory Last Values Urine pH (Auto) 6.0 10/13/23 15:26 Specific [place] (Auto) 1.020 10/13/23 15:26 Urine Protein (Auto) 15 mg/dL 10/13/23 15:26 Glucose (UA)(Auto) 0 mg/dL 10/13/23 15:26 Urine Ketones (Auto) Positive 10/13/23 15:26 Urine Blood (Auto) 0 Salas/uL 10/13/23 15:26 Urine Nitrite (Auto) Negative 10/13/23 15:26 Urine Bilirubin (Auto) 0 mg/dL 10/13/23 15:26 Urine Urobilinogen (Auto) 0.2 mg/dL 10/13/23 15:26 Leukocyte Esterase (Auto) 0 Stewart/uL 10/13/23 15:26 Date of Service: 08/09/23 EXAMINATION: CT ABDOMEN AND PELVIS WITHOUT CONTRAST FINDINGS: LUNG BASES: The visualized lung bases are unremarkable. LIVER, GALLBLADDER, AND BILIARY TREE: The liver is normal in size, shape, and attenuation. No focal hepatic lesion or biliary ductal dilatation is present. The gallbladder is unremarkable with no evidence of radiopaque gallstones, gallbladder wall thickening, or obvious pericholecystic inflammatory changes. PANCREAS: Unremarkable. SPLEEN: Unremarkable. ADRENAL GLANDS: Unremarkable. KIDNEYS AND URETERS: There is a 4 mm calculus in the upper right ureter (series 4 image 328). There is mild right hydronephrosis. Right upper pole renal cyst. BLADDER: Unremarkable. GASTROINTESTINAL TRACT: The small and large bowel are unremarkable. The appendix is unremarkable. ABDOMINAL WALL: No significant hernia is appreciated. LYMPH NODES: Normal. VASCULAR: Unremarkable. PELVIC VISCERA: Unremarkable. OSSEOUS STRUCTURES: Unremarkable. IMPRESSION: 4 mm calculus in the upper right ureter with mild right hydronephrosis. Assessment & Plan Assessment & Plan (1) Kidney stone: Code(s): N20.0 - Calculus of kidney Category: Medical (2) Hydronephrosis: Code(s): N13.30 - Unspecified hydronephrosis Category: Medical (3) Ureteral stone: Code(s): N20.1 - Calculus of ureter Category: Medical (4) Nocturia: Code(s): R35.1 - Nocturia Category: Medical Plan In office urinalysis results reviewed with the patient today; as noted above. Discussed at length potential causes of nocturia as well as nephrolithiasis. Patient will bring stone for stone analysis. Will obtain retroperitoneal ultrasound for further assessment evaluation. Discussed, educated, and stressed the importance of drinking plenty of water daily. Discussed, educated, and stressed the importance of compliance with CPAP for overall health and well-being. Discussed further metabolic workup with 24 hour urine collection and labs. Follow-up in 3 months with imaging to be completed prior; or sooner with any issues, concerns, and or questions. Orders: Orders AMB Urinalysis Automated Today Z13.9 - Encounter for screening, unspecified US retroperitoneal comp Today N13.30 - Unspecified hydronephrosis, N20.1 - Calc ulus of ureter, R35.1 - Nocturia Medications: Refilled amlodipine 5 mg PO DAILY 90 tabs 0RF Patient Instructions: The patient had an opportunity to ask questions regarding the treatment plan. All questions were answered. Physical exam, labs, and imaging were discussed and reviewed in detail. As well as risks, benefits, and discussion of treatment choices. No major barriers to understanding were identified. The patient expressed understanding and agreement with the above treatment plan. The patient was made aware they should contact our office by phone for worsening of their current condition, the appearance of new symptoms, or with any questions or concerns. Compliance is encouraged with any medications and follow up testing that is ordered. It is a privilege to be allowed the opportunity to participate in? your urological care.? Again, if you have any questions or concerns If you have any questions or concerns please do not hesitate to contact me. The office is [phone]. This note is constructed using voice recognition software. While every effort has been made to ensure accuracy grounding engineer errors may have been included. Yours sincerely, CHANELL Broderick
== END 2023-10-13 15:59 | disposition home or self-care (01) ==
PROVIDERS: PCP Internal Medicine; Visit Provider Nurse Practitioner Family
DX: N20.0 Calculus of kidney (principal); N13.30 Unspecified hydronephrosis; N20.1 Calculus of ureter; R35.1 Nocturia
CPT/HCPCS: 99204

== ENCOUNTER → 2023-10-13 14:57 | Outpatient (BNVA) | payer OTHER, SELFPAY | PROVIDERS: PCP Internal Medicine; Visit Provider Nurse Practitioner Family | DX: N20.1 Calculus of ureter (principal); N20.0 Calculus of kidney; N13.30 Unspecified hydronephrosis; R35.1 Nocturia | CPT/HCPCS: 81003; 99202 ==

== ENCOUNTER 2023-12-26 10:01 | Outpatient (REF) | payer OTHER, SELFPAY ==
--- NOTE | ~2023-12-26 | US_ITS ---
EXAMINATION: US RETROPERITONEAL COMPLETE (RENAL) CLINICAL INFORMATION: Nocturia. COMPARISON: CT abdomen and pelvis 08/09/2023. Ultrasound renal 04/11/2022. Ultrasound abdomen 05/12/2021. TECHNIQUE: Real-time imaging of the kidneys and bladder. FINDINGS: RIGHT KIDNEY: 10.0 x 5.9 x 6.7 cm (SAG x AP x TRV). The kidney is normal in size, contour, and echogenicity. Renal cortical thickness is normal. No renal calculi or hydronephrosis. There are multiple renal cysts, the largest measures 1.1 x 1.2 x 1.1 cm, seen in the mid kidney, no imaging follow-up is recommended. LEFT KIDNEY: 10.5 x 5.7 x 5.5 cm (SAG x AP x TRV). The kidney is normal in size, contour, and echogenicity. Renal cortical thickness is normal. No renal calculi or hydronephrosis. There are multiple renal cysts, the largest measures 0.9 x 1.3 x 0.8 cm, seen in the mid kidney, no imaging follow-up is recommended. BLADDER: Well distended and normal. Bilateral ureteral jets are demonstrated. Prevoid bladder volume is 154 mL. Postvoid bladder volume is 1.2 mL. ADDITIONAL FINDINGS: The prostate is normal size with a volume of 17.4 mL. US/US retroperitoneal comp IMPRESSION: 1. No renal calculi or hydronephrosis. 2. No significant post void residual. 3. Normal size prostate.
== END 2023-12-26 10:02 | disposition home or self-care (01) ==
LOC: HO.US 10:01
PROVIDERS: PCP Internal Medicine; Visit Provider Nurse Practitioner Family
DX: R53.1 Weakness (principal); N13.30 Unspecified hydronephrosis; N20.1 Calculus of ureter
CPT/HCPCS: 76770

== ENCOUNTER 2024-01-09 10:38 | Outpatient (AMB) | payer OTHER, SELFPAY ==
--- NOTE | 2024-01-09 10:44 | A.OFFVIS_ITS ---
Intake Visit Reasons: 3m/US(set) Intake Note: Patient presents today for follow up on: ureteral stone, hydronephrosis, kidney stone Imagin12/26/23 Urology Medications: none Blood Thinner: none Analysis Specialist Required: Yes Analysis Specialist Name: Flavio [id number] Accompanied by: Self / Same As Patient Allergies No Known Allergies [No Known Allergies*] Allergy (Verified 01/09/24 11:22) Medication List - Last Reconciled 01/09/24 by CHANELL Broderick amlodipine 5 mg PO DAILY syringe (disposable) (BD Bulk Syringe Slip Tip) As directed HPI Comments Details: Francis is a very pleasant 37-year-old Tanzanian-speaking male patient of Dr. Lopez [facility] He has a past medical history of asthma, migraines, fatty liver, hypercholesteremia, vitamin B12 deficiency, sleep apnea, nephrolithiasis, and vitamin-D deficiency. He presents to the office today for follow-up of his nephrolithiasis. Recent retroperitoneal ultrasound results reviewed with the patient today. Bilateral kidneys with no renal calculi or hydronephrosis. Bilateral multiple renal cysts right side largest measures 1.1 cm, on the left side largest measures approximately 1.3 cm. No imaging follow-up per radiology report. The bladder is well distended and normal. Bladder ureteral jets are demonstrated. Pre void bladder volume is approximately 150 mL. There is no significant postvoid residual. Prostate measures approximately 17 mL. In discussion with the patient today he reports to be doing and feeling well. He reports since his last office visit here he has not experienced any bothersome urinary issues. He reports had intermittent scrotal discomfort for quite sometime. He reports pain is intermittent and infrequent. He currently denies any scrotal pain. In assessment of the patient today small bilateral epididymal head cysts noted right side greater than left. Patient does report minimal pain upon palpation of the epididymis otherwise no lesions, open areas, and or drainage noted. In office urinalysis results reviewed with the patient today. He denies urinary urgency, urinary frequency, incontinence, hematuria, dysuria, foul smelling urine, changes to urinary stream, flank pain, fever, and or chills. He is happy with his current voiding parameters. He does report nocturia episodes of nocturia however notes this happens more with noncompliance of CPAP machine. Discussed correlation of nocturia and sleep apnea. h In office urinalysis results reviewed with the patient today. He otherwise offers no other issues or concerns. [facility] Medical History Asthma Migraine Fatty liver Hypercholesterolemia Vitamin B12 deficiency Obstructive sleep apnea Renal calculi Vitamin D deficiency Surgical History History of tooth extraction Family History Mother No problems noted. Father Hypertension Son In good health Son In good health Son In good health Sister In good health Brother No problems noted. Social History Household Members: Spouse and Family Household Members Other:: 5 Housing: House Do you presently have visiting nurse or other home services: No Alcohol intake: never Patient Tobacco Use Status: Never used Tobacco e-Cigarette/Vaping Use: Never Used Second Hand Smoke Exposure: No service: No Current occupational status: employed Current occupational exposures/hazards: No Cognitive needs: No Hearing needs: No Vision needs: Yes Review of Systems Const Reports no additional complaints Eyes Reports no additional complaints ENT Reports no additional complaints Card Reports as per HPI Resp Reports as per HPI GI Reports no additional complaints Reports as per HPI Musc Reports no additional complaints Neuro Reports no additional complaints Psych Reports no additional complaints Endo Reports no additional complaints Agus/Lymph Reports no additional complaints Aller/Immun Reports no additional complaints Physical Exam Const General: cooperative, healthy appearing, comfortable, no acute distress, well developed, alert and awake Orientation/consciousness: patient oriented x3 Limitations: no limitations HEENT Head: Yes normal to inspection, Yes normocephalic and Yes atraumatic Ears: hearing grossly normal bilaterally Eyes General: appearance normal, both eyes and all related structures Neck Neck: Yes normal visual inspection and Yes trachea midline Chest Chest palpation & inspection: normal inspection of the chest Resp Effort & Inspection: normal respiratory effort and able to speak in complete sentences Cardio Rate: regular rate GI Inspection: Yes normal to inspection Other: as per HPI General: Yes no CVA tenderness Penis: normal penis Meatus: meatus normal Back/Spine/Pelvis Back: no CVA tenderness Skin General skin exam: no rashes or lesions noted Neuro General: patient oriented x3 Extrem General: Yes normal to inspection Psych Appearance: grossly normal and well kempt Mental Status: mental status grossly normal Speech and movement: Normal speech and movement present and Clear speech present Affect: normal affect Attitude: cooperative Thought process: Normal thought process present Thought content: Normal thought content present Insight: Fair insight present (Psych) Judgement: Fair judgement present (Psych) Results AMB Urinalysis, Automated UA Leukoctes 0 Stewart/uL Last Edit by Kitchenbug on 01/09/24 11:04 UA Nitrite Negative Last Edit by Kitchenbug on 01/09/24 11:04 UA Urobilinogen 0.2 mg/dL Last Edit by Kitchenbug on 01/09/24 11:04 UA Protein 30 mg/dL Last Edit by Kitchenbug on 01/09/24 11:04 UA pH 6.5 Last Edit by Kitchenbug on 01/09/24 11:04 UA Blood 0 Salas/uL Last Edit by Kitchenbug on 01/09/24 11:04 UA Specific [place] 1.015 Last Edit by Kitchenbug on 01/09/24 11:04 UA Ketone Negative Last Edit by Kitchenbug on 01/09/24 11:04 UA Bilirubin 0 mg/dL Last Edit by Kitchenbug on 01/09/24 11:04 UA Glucose 0 mg/dL Last Edit by Kitchenbug on 01/09/24 11:04 Results Reviewed Results Reviewed: Laboratory Last Values Urine pH (Auto) 6.5 01/09/24 11:01 Specific [place] (Auto) 1.015 01/09/24 11:01 Urine Protein (Auto) 30 mg/dL 01/09/24 11:01 Glucose (UA)(Auto) 0 mg/dL 01/09/24 11:01 Urine Ketones (Auto) Negative 01/09/24 11:01 Urine Blood (Auto) 0 Salas/uL 01/09/24 11:01 Urine Nitrite (Auto) Negative 01/09/24 11:01 Urine Bilirubin (Auto) 0 mg/dL 01/09/24 11:01 Urine Urobilinogen (Auto) 0.2 mg/dL 01/09/24 11:01 Leukocyte Esterase (Auto) 0 Stewart/uL 01/09/24 11:01 Date of Service: 12/26/23 EXAMINATION: US RETROPERITONEAL COMPLETE (RENAL) FINDINGS: RIGHT KIDNEY: 10.0 x 5.9 x 6.7 cm (SAG x AP x TRV). The kidney is normal in size, contour, and echogenicity. Renal cortical thickness is normal. No renal calculi or hydronephrosis. There are multiple renal cysts, the largest measures 1.1 x 1.2 x 1.1 cm, seen in the mid kidney, no imaging follow-up is recommended. LEFT KIDNEY: 10.5 x 5.7 x 5.5 cm (SAG x AP x TRV). The kidney is normal in size, contour, and echogenicity. Renal cortical thickness is normal. No renal calculi or hydronephrosis. There are multiple renal cysts, the largest measures 0.9 x 1.3 x 0.8 cm, seen in the mid kidney, no imaging follow-up is recommended. BLADDER: Well distended and normal. Bilateral ureteral jets are demonstrated. Prevoid bladder volume is 154 mL. Postvoid bladder volume is 1.2 mL. ADDITIONAL FINDINGS: The prostate is normal size with a volume of 17.4 mL. IMPRESSION: 1. No renal calculi or hydronephrosis. 2. No significant post void residual. 3. Normal size prostate. Assessment & Plan Assessment & Plan (1) Kidney stone: Code(s): N20.0 - Calculus of kidney Category: Medical (2) Hydronephrosis: Code(s): N13.30 - Unspecified hydronephrosis Category: Medical (3) Ureteral stone: Code(s): N20.1 - Calculus of ureter Category: Medical (4) Nocturia: Code(s): R35.1 - Nocturia Category: Medical (5) Scrotal pain: Code(s): N50.82 - Scrotal pain Category: Medical (6) Epididymal cyst: Code(s): N50.3 - Cyst of epididymis Category: Medical Plan In office urinalysis results reviewed with the patient today; as noted above. Discussed at length potential causes of nocturia, nephrolithiasis, as well as scroal pain/discomfort. Recent retroperitoneal ultrasound results reviewed with the patient today; as noted above. Discussed, educated, and stressed the importance of drinking plenty of water daily. Discussed, educated, and stressed the importance of compliance with CPAP for ov erall health and well-being. Discussed further metabolic workup with 24 hour urine collection and labs. Will obtain renal ultrasound in 6 months. Patient reports be happy with current voiding parameters. Follow-up in 6 months with imaging to be completed prior; or sooner with any issues, concerns, and or questions. Orders: Orders US renal BI 6 Months N20.0 - Calculus of kidney AMB Urinalysis Automated 01/09/24 Z13.9 - Encounter for screening, unspecified Patient Instructions: The patient had an opportunity to ask questions regarding the treatment plan. All questions were answered. Physical exam, labs, and imaging were discussed and reviewed in detail. As well as risks, benefits, and discussion of treatment choices. No major barriers to understanding were identified. The patient expressed understanding and agreement with the above treatment plan. The patient was made aware they should contact our office by phone for worsening of their current condition, the appearance of new symptoms, or with any questions or concerns. Compliance is encouraged with any medications and follow up testing that is ordered. It is a privilege to be allowed the opportunity to participate in? your urological care.? Again, if you have any questions or concerns If you have any questions or concerns please do not hesitate to contact me. The office is [phone]. This note is constructed using voice recognition software. While every effort has been made to ensure accuracy traffic representative errors may have been included. Yours sincerely, CHANELL Broderick Coding Level of Care Code Est Pt Level 3 (06967) Diagnoses Kidney stone N20.0 Hydronephrosis N13.30 Ureteral stone N20.1 Nocturia R35.1 Scrotal pain N50.82 Epididymal cyst N50.3
== END 2024-01-09 11:21 | disposition home or self-care (01) ==
PROVIDERS: PCP Internal Medicine; Visit Provider Nurse Practitioner Family
DX: N20.0 Calculus of kidney (principal); N13.30 Unspecified hydronephrosis; N20.1 Calculus of ureter; R35.1 Nocturia; N50.82 Scrotal pain; N50.3 Cyst of epididymis
CPT/HCPCS: 99213

== ENCOUNTER → 2024-01-09 10:38 | Outpatient (BNVA) | payer OTHER, SELFPAY | PROVIDERS: PCP Internal Medicine; Visit Provider Nurse Practitioner Family | DX: N20.0 Calculus of kidney (principal); N13.30 Unspecified hydronephrosis; N20.1 Calculus of ureter; N50.82 Scrotal pain; N50.3 Cyst of epididymis; R35.1 Nocturia | CPT/HCPCS: 81003; 99212 ==

== ENCOUNTER 2024-05-01 11:23 | Outpatient (AMB) | payer OTHER, SELFPAY ==
--- NOTE | 2024-05-01 11:29 | AM.OFFWIN_ITS ---
Intake Vital Signs 05/01/24 11:31 Height 5 ft 7 in Weight 197 lb BMI 30.9 BP 140/100 H Blood Pressure Location Lt brachial Position Sitting Pulse 90 Pulse Source Pulse Oximeter Pulse Oximetry (%) 98 Oxygen Delivery Method Room Air Intake Visit Reasons: EP pressure in back of head/headache Intake Note: Patient here for pressure of back of head, headache which has been going on for a few days. He states he uses a cpap machine and its not as often as he is supposed to because he forgets to use it but when he does this type of thing happens. Patient Tobacco Use Status: Never used Tobacco Allergies No Known Allergies [No Known Allergies*] Allergy (Verified 05/01/24 11:33) Do you need a note to return to daycare/school/sports/work: No HPI HPI Comments History of Present Illness Details Patient is a Stateless-speaking 38-year-old male with a past medical history of hypertension on 5 mg of amlodipine daily and RAH on CPAP. He comes to the walk-in today complaining of headaches, he tells me he has been checking his blood pressure and he is consistently 150 systolic; he also admits that he has not been using his CPAP most days. He tells me he probably use it 2 days out of every 7 in the week. Yesterday, he took 10 mg of amlodipine and noticed his blood pressure went down to 120 systolic. He tells me his headache is in the back of his head and sometimes he feels a little dizzy. He tells me it does feel like a migraine. He states it is not the worst headache of his life and denies any nausea or vomiting or light sensitivity or sound sensitivity. Interpretation done by office Katelynn FULTON. [facility] Medical History Asthma Migraine Fatty liver Hypercholesterolemia Vitamin B12 deficiency Obstructive sleep apnea Renal calculi Vitamin D deficiency Surgical History History of tooth extraction Family History Mother No problems noted. Father Hypertension Son In good health Son In good health Son In good health Sister In good health Brother No problems noted. Social History Household Members: Spouse and Family Household Members Other:: 5 Housing: House Do you presently have visiting nurse or other home services: No Alcohol intake: never Patient Tobacco Use Status: Never used Tobacco e-Cigarette/Vaping Use: Never Used Second Hand Smoke Exposure: No service: No Current occupational status: employed Current occupational exposures/hazards: No Cognitive needs: No Hearing needs: No Vision needs: Yes Review of Systems Const All systems reviewed & are unremarkable except as noted in HPI and below Physical Exam Vital Signs: Last Vital Signs Pulse 90 05/01/24 11:31 BP 140/100 H 05/01/24 11:31 Pulse Ox 98 05/01/24 11:31 Oxygen Delivery Method Room Air 05/01/24 11:31 BMI result Body Mass Index 30.9 Const General: cooperative, healthy appearing, comfortable, no acute distress and well developed Orientation/consciousness: patient oriented x3 Limitations: no limitations HEENT Head: Yes normal to inspection Ears: hearing grossly normal bilaterally General nose exam: Normal external nose present Face and sinus: Yes normal facial exam Eyes General: appearance normal, both eyes and all related structures Neck Neck: Yes normal visual inspection and Yes full ROM Resp Effort & Inspection: normal respiratory effort and able to speak in complete sentences Auscultation: clear to auscultation bilaterally Cardio Rate: regular rate Rhythm: regular rhythm Heart sounds: normal S1 and S2 Skin General skin exam: no rashes or lesions noted Neuro General: patient oriented x3 Extrem General: Yes normal to inspection Assessment & Plan Assessment & Plan (1) Headache: Code(s): R51.9 - Headache, unspecified Qualifiers: Headache chronicity pattern: acute headache Headache type: unspecified Intractability: not intractable Qualified Code(s): R51.9 - Headache, unspecified Plan: Headaches are likely multifactorial, recommended patient start using his CPAP machine every night. In the meanwhile, I did increase his amlodipine to 10 mg daily and recommended he check his blood pressure twice a day and keep a log. Advised if he does start using his CPAP machine every night, he may be able to go back down to the 5 mg of amlodipine daily. Gave him parameters on when to go back down to 5 mg amlodipine daily: < 90/60. Sent a 30 day supply of 10 mg amlodipine to his pharmacy. Sent message to [facility] in [place] chemical instrumentation officer to get him a follow up appointment in 2 weeks to review his blood pressures with the new dose. Recommended he set an alarm each night to remind himself to use his CPAP Plan See above Medications: New amlodipine 10 mg PO DAILY 30 tabs 0RF Coding Level of Care Code Est Pt Level 4 (09751) Diagnoses Headache R51.9 Headache chronicity pattern: acute headache Headache type: unspecified Intractability: not intractable
[2024-05-01 11:31] VITALS: BP 140/100; PULSE 90; O2SAT 98; BMI 30.9
== END 2024-05-01 12:48 | disposition home or self-care (01) ==
PROVIDERS: PCP Internal Medicine; Visit Provider Physician Assistant
DX: R51.9 Headache, unspecified (principal)

== ENCOUNTER → 2024-05-01 11:23 | Outpatient (BNVA) | payer OTHER, SELFPAY | PROVIDERS: PCP Internal Medicine; Visit Provider Physician Assistant | DX: R51.9 Headache, unspecified (principal) | CPT/HCPCS: 99212 ==

== ENCOUNTER 2024-05-09 11:04 | Outpatient (AMB) | payer OTHER, SELFPAY ==
[2024-05-09 11:29] VITALS: BP 140/82; BMI 27.9
--- NOTE | 2024-05-09 11:29 | MHC.PC.OV ---
Vital Signs 05/09/24 11:29 Height 5 ft 11 in Weight 200 lb BMI 27.9 BP 140/82 H Blood Pressure Location Lt brachial Position Sitting Intake Visit Reasons: walk-in f/u BP/Headaches Pals Nurse Required: No Accompanied by: Self / Same As Patient Allergies No Known Allergies [No Known Allergies*] Allergy (Verified 05/09/24 11:50) Medication List - Last Reconciled 05/09/24 by Carmen Weller MD amlodipine 10 mg PO DAILY syringe (disposable) (BD Bulk Syringe Slip Tip) As directed Tobacco use date assessed: 05/09/24 Dental Screening Dental Screen Date: 05/09/24 Did you have a dental visit in the last 12 months?: No Did you have a dental problem in the last 6 months where you did not have access to dental care?: No Was dental information given to patient?: Patient has dentist HPI HPI Comments History of Present Illness Details This is a 38-year-old male with hypertension and obstructive sleep apnea that comes today as walk-in clinic follow-up due to elevated blood pressure. Blood pressure still somewhat elevated but he did not took his amlodipine today. Blood pressure will be recheck in 3 weeks by nurse navigator. Has obstructive sleep apnea diagnosed about a years ago and use CPAP machine but is not compliant with it. He said that every time he does not use it has headaches and elevated blood pressure. I recommend to use it on a daily basis. He will be referred to sleep Medicine. No chest pain or shortness on breath. No acute complaint. [facility] Medical History (Updated 05/09/24 @ 13:58 by Carmen Weller MD) Asthma Migraine Fatty liver Hypercholesterolemia Vitamin B12 deficiency Obstructive sleep apnea Renal calculi Vitamin D deficiency Surgical History History of tooth extraction Family History Mother No problems noted. Father Hypertension Son In good health Son In good health Son In good health Sister In good health Brother No problems noted. Social History Household Members: Spouse and Family Household Members Other:: 5 Housing: House Do you presently have visiting nurse or other home services: No Alcohol intake: never Patient Tobacco Use Status: Never used Tobacco e-Cigarette/Vaping Use: Never Used Second Hand Smoke Exposure: No service: No Current occupational status: employed Current occupational exposures/hazards: No Cognitive needs: No Hearing needs: No Vision needs: Yes Questionnaire Thrive Questionnaire Date Thrive assessed: 07/27/22 DUGLAS-7 AMB Questionnaire DUGLAS-7 Date DUGLAS - 7 assessed: 07/27/22 Source: Developed by Drs. Ming Carrillo, Hoda Banuelos, Silvano Smith and colleagues, with an educational temo from [employer]. Review of Systems Const All systems reviewed & are unremarkable except as noted in HPI and below Card Denies chest pain at rest, Denies chest pain with activity, Denies edema, Denies irregular heart rhythm, Denies claudication, Denies dyspnea, Denies dyspnea on exertion, Denies orthopnea, Denies paroxysmal nocturnal dyspnea and Denies slow heart rate Resp Denies cough, Denies dyspnea and Denies dyspnea on exertion GI Denies abdominal pain, Denies change in bowel habits, Denies excessive flatus, Denies nausea and Denies vomiting Physical exam (Primary Care) Vital Signs: Last Vital Signs BP 140/82 H 05/09/24 11:29 BMI result Body Mass Index 27.9 Tobacco/Smoking Status: Tobacco use Status Tobacco use date assessed 05/09/24 05/09/24 11:31 Patient Tobacco Use Status Never used Tobacco 05/09/24 11:31 Tobacco use type 08/18/23 16:02 e-Cigarette/Vaping Use Never Used 05/09/24 11:31 Thrive Assessment: Date of Thrive Assessment Date Thrive assessed 07/27/22 05/09/24 11:31 Resp Effort & Inspection: normal respiratory effort Auscultation: clear to auscultation bilaterally Cardio Jugular venous distension: no JVD Rate: regular rate Rhythm: regular rhythm Heart sounds: S1 normal heart sound present and S2 normal heart sound present Extrem General: Yes full ROM Office Procedures Flu Questionnaire Does the patient have a severe egg allergy?: No Immunizations Fluarix Triv [id number] (PF) 45 mcg (15 mcg x 3)/0.5 mL IM syringe Performing Provider: Carmen Weller MD [place] [facility] [place] [facility] Documented (not given) by: EDITH Wilkinson on 05/09/24 11:32 Reason Not Given: Patient Refused Coding Level of Care Code Est Pt Level 3 (23742) Complex EM visit Add On G2211 Diagnoses RAH (obstructive sleep apnea) G47.33 Primary hypertension I10 Hypertension type: primary hypertension Time Spent (min) 19 Assessment & Plan Assessment & Plan (1) RAH (obstructive sleep apnea): Code(s): G47.33 - Obstructive sleep apnea (adult) (pediatric) Category: Medical Plan: Continue CPAP daily. Referred to sleep Medicine. (2) HTN (hypertension): Code(s): I10 - Essential (primary) hypertension Category: Medical Qualifiers: Hypertension type: primary hypertension Qualified Code(s): I10 - Essential (primary) hypertension Plan: Continue amlodipine 10 mg daily. Blood pressure goal is equal or less than 130/80. Recheck blood pressure with nurse navigator in 3 weeks. Orders: Orders Influenza [id number] Immunization Today Z23 - Encounter for immunization Referrals Sleep Medicine Referral G47.33 - Obstructive sleep apnea (adult) (pediatric)
== END 2024-05-09 11:57 | disposition home or self-care (01) ==
PROVIDERS: PCP Internal Medicine; Visit Provider Internal Medicine
DX: G47.33 Obstructive sleep apnea (adult) (pediatric) (principal); I10 Essential (primary) hypertension; Z23 Encounter for immunization

== ENCOUNTER → 2024-05-09 11:04 | Outpatient (BNVA) | payer OTHER, SELFPAY | PROVIDERS: PCP Internal Medicine; Visit Provider Internal Medicine | DX: G47.33 Obstructive sleep apnea (adult) (pediatric) (principal); I10 Essential (primary) hypertension | CPT/HCPCS: 90471; 99212 ==

== ENCOUNTER 2024-05-16 09:43 | Outpatient (AMB) | payer OTHER, SELFPAY ==
--- NOTE | 2024-05-16 10:11 | A.OFFVIS_ITS ---
Vital Signs 05/16/24 10:12 Height 5 ft 11 in Weight 198 lb BMI 27.6 Intake Visit Reasons: INP-RAH Intake Note: Patient presents for RAH Allergies No Known Allergies [No Known Allergies*] Allergy (Verified 05/16/24 10:19) Medication List - Last Reconciled 05/16/24 by Elsa Law PA-C amlodipine 10 mg PO DAILY syringe (disposable) (BD Bulk Syringe Slip Tip) As directed HPI Comments Details: 38 y/o M with h/o Essential Hypertension comes for sleep evaluation, per PCP. He had a home sleep study completed in 2021. He had severe RAH, total sleep time AHI 61 and snoring for 16.5% of study. Average O2 sat was 94.5 lowest O2 sat below 88% for 7 minutes. He continues to snore and wakes up with headaches daily. He is not compliant due to mask not fitting well, supplies not provided on time and he forgets. Stressed Compliance and use nightly. Sleep questionnaire- Difficulty falling asleep-yes Difficulty staying asleep-yes Number of arousals- 5 Snoring-yes Witnessed apneas-yes Gasping arousals- Nocturia-yes GERD-no Vivid dreams-no Acting out dreams -no Abnormal behavior in sleep-no ABnormal movements in sleep-no Morning headaches- yes Excessive daytime sleepiness-yes/no Daytime naps- no restless legs- no Hallucinations- no sleep paralysis- no Drop attacks- no Sleep study-yes/ 2021 Results AHI 64.5 CPAP yes not happy with the current sleep carrier Sleep Hygiene- Sleep time midnight Wake time 0600 coffee/stimulant use yes Phone Electronics use no Exercise no Bedroom comfort yes [facility] Medical History Asthma Migraine Fatty liver Hypercholesterolemia Vitamin B12 deficiency Obstructive sleep apnea Renal calculi Vitamin D deficiency Surgical History History of tooth extraction Family History Mother No problems noted. Father Hypertension Son In good health Son In good health Son In good health Sister In good health Brother No problems noted. Social History Household Members: Spouse and Family Household Members Other:: 5 Housing: House Do you presently have visiting nurse or other home services: No Alcohol intake: never Patient Tobacco Use Status: Never used Tobacco e-Cigarette/Vaping Use: Never Used Second Hand Smoke Exposure: No service: No Current occupational status: employed Current occupational exposures/hazards: No Cognitive needs: No Hearing needs: No Vision needs: Yes Physical Exam Vital Signs: BMI result Body Mass Index 27.6 Const General: cooperative, comfortable and no acute distress Nutritional Appearance: average body habitus Orientation/consciousness: patient oriented x3 Limitations: no limitations HEENT Face and sinus: Yes normal facial exam and Yes face symmetric Eyes Pupils: Equal, round and reactive pupils present, Pupils normal by confrontation and Pupil accommodation reflex normal Neck Neck: Yes full ROM and Yes supple Resp Effort & Inspection: normal respiratory effort and able to speak in complete sentences Neuro General: patient oriented x3 and moves all extremities Cranial nerves: Yes CN's II-XII intact bilaterally, Yes Facial sensation intact/muscles of mastication intact, Yes Equal, round and reactive pupils present, Yes Normal accommodation reflex present, Yes Normal facial strength present, Yes Midline tongue present, Yes Symmetric palate elevation present, Yes Ability to bilaterally rotate head present and Yes Ability to bilaterally elevate shoulders present Gait exam (Neuro): Normal gait present Motor exam (neuro): 5/5 motor strength present throughout and Normal motor muscle tone present throughout Deep tendon reflexes (DTR's): Right triceps reflex intensity grade: 2+, Left triceps reflex intensity grade: 2+, Rt Biceps (C5, C6): 2+, Left biceps reflex intensity grade: 2+, Right brachioradialis reflex intensity grade: 2+, Left brachioradialis reflex intensity grade: 2+, Right patellar reflex intensity grade: 2+, Left patellar reflex intensity grade: 2+, Right ankle reflex intensity grade: 2+ and Left ankle reflex intensity grade: 2+ Coordination: [id number] test normal Results Reviewed Results Reviewed: CPAP Study April 2022 Severe Sleep Apnea AHI 61 snoring for 16.5% of sleep time, AVG O2 sat 94.5, lowest O2 sat 88% for 7 minutes. Assessment & Plan Assessment & Plan (1) RAH (obstructive sleep apnea): Code(s): G47.33 - Obstructive sleep apnea (adult) (pediatric) Category: Medical Plan: Plan Continue CPAP daily. Referred to sleep medicine for sleep titration study in lab. Stressed compliance of CPAP nightly, as patient has HTN and severe sleep apnea. Will refer patient to [facility], as he continues to have difficulties with current sleep equipment carrier. Discussed daily exercise and Dash diet to help with BP management. Discussed the [employer], patient may be a good candidate for this technology. Orders: Orders RT PSG in-lab sleep study Today G44.52 - New daily persistent headache (NDPH), G47.33 - Obstructive sleep apnea (adult) (pediatric), I10 - Essential (primary) hypertension Coding Level of Care Code New Pt Level 4 (29429) Diagnoses RAH (obstructive sleep apnea) G47.33
[2024-05-16 10:12] VITALS: BMI 27.6
--- NOTE | 2024-05-16 10:35 | MHC.OFFVIS ---
Vital Signs 05/16/24 10:12 Height 5 ft 11 in Weight 198 lb BMI 27.6 Intake Visit Reasons: INP-RAH Allergies No Known Allergies [No Known Allergies*] Allergy (Verified 05/16/24 10:19) Medication List - Last Reconciled 05/16/24 by Elsa Law PA-C amlodipine 10 mg PO DAILY syringe (disposable) (BD Bulk Syringe Slip Tip) As directed [facility] Medical History Asthma Migraine Fatty liver Hypercholesterolemia Vitamin B12 deficiency Obstructive sleep apnea Renal calculi Vitamin D deficiency Surgical History History of tooth extraction Family History Mother No problems noted. Father Hypertension Son In good health Son In good health Son In good health Sister In good health Brother No problems noted. Social History Household Members: Spouse and Family Household Members Other:: 5 Housing: House Do you presently have visiting nurse or other home services: No Alcohol intake: never Patient Tobacco Use Status: Never used Tobacco e-Cigarette/Vaping Use: Never Used Second Hand Smoke Exposure: No service: No Current occupational status: employed Current occupational exposures/hazards: No Cognitive needs: No Hearing needs: No Vision needs: Yes Physical Exam Vital Signs: BMI result Body Mass Index 27.6 Quality Reporting (2019) Adult ([facility] 138/2/) Body Mass Index: 27.6 Coding
== END 2024-05-16 10:52 | disposition home or self-care (01) ==
PROVIDERS: PCP Internal Medicine; Visit Provider Physician Assistant Medical
DX: G47.33 Obstructive sleep apnea (adult) (pediatric) (principal)
CPT/HCPCS: 99203

== ENCOUNTER → 2024-05-16 09:43 | Outpatient (BNVA) | payer OTHER, SELFPAY | PROVIDERS: PCP Internal Medicine; Visit Provider Physician Assistant Medical | DX: I10 Essential (primary) hypertension (principal); G47.33 Obstructive sleep apnea (adult) (pediatric) | CPT/HCPCS: 99202 ==

== ENCOUNTER → 2024-05-31 13:32 | Outpatient (BNVA) | payer OTHER, SELFPAY | PROVIDERS: PCP Internal Medicine ==

== ENCOUNTER 2024-06-04 09:09 | Outpatient (AMB) | payer OTHER, SELFPAY ==
--- NOTE | 2024-06-04 09:15 | A.OFFPC_ITS ---
Vital Signs 06/04/24 09:17 Height 5 ft 11 in Weight 199 lb BMI 27.8 BP 130/86 Blood Pressure Location Lt brachial Position Sitting Intake Visit Reasons: Annual exam Intake Note: Patient here for an annual physical exam Charge Nurse Required: No Accompanied by: Self / Same As Patient Allergies No Known Allergies [No Known Allergies*] Allergy (Verified 06/04/24 09:44) Medication List - Last Reconciled 06/04/24 by Carmen Weller MD amlodipine 10 mg PO DAILY syringe (disposable) (BD Bulk Syringe Slip Tip) As directed Tobacco use date assessed: 05/09/24 Dental Screening Dental Screen Date: 05/09/24 HPI HPI Comments History of Present Illness Details The patient is a 38-year-old male presenting for an annual physical examination. He has a known history of essential hypertension, managed with amlodipine 10 mg once daily. There is a family history of hypertension, with the patient's father experiencing elevated blood pressure. The patient denies any allergies to medications. He also has a history of pernicious anemia, for which monitoring of vitamin B12 levels has been recommended. The patient reports minimal depression, linked to feelings of tiredness and decreased sleep quality, with a minimal score of two on the PHQ-9 scale, which does not currently necessitate further interventions. Additionally, the patient experiences mild anxiety, though it is noted as insignificant at present. He denies any smoking, alcohol use, or family history of coronary cancer. Recent laboratory work is not available, thus a fasting laboratory test for cholesterol, blood sugar, renal and liver function, and complete blood count has been ordered. - Fasting laboratory tests to check chol esterol, blood sugar, renal function, liver function, and vitamin B12 levels. - Discussed tetanus vaccine administrati on, noted that the patient does not have a record of recent vaccination, recommended every ten years. - Administer tetanus vaccine during this visit as per guidelines. [facility] Medical History Asthma Migraine Fatty liver Hypercholesterolemia Vitamin B12 deficiency Obstructive sleep apnea Renal calculi Vitamin D deficiency Surgical History History of tooth extraction Family History Mother No problems noted. Father Hypertension Son In good health Son In good health Son In good health Sister In good health Brother No problems noted. Social History Household Members: Spouse and Family Household Members Other:: 5 Housing: House Do you presently have visiting nurse or other home services: No Alcohol intake: never Patient Tobacco Use Status: Never used Tobacco e-Cigarette/Vaping Use: Never Used Second Hand Smoke Exposure: No service: No Current occupational status: employed Current occupational exposures/hazards: No Cognitive needs: No Hearing needs: No Vision needs: Yes Questionnaire PHQ-9 Over the last 2 weeks, how often have you been bothered by any of the following problems? 1. Little interest or pleasure in doing things: not at all 2. Feeling down, depressed, or hopeless: not at all 3. Trouble falling or staying asleep, or sleeping too much: several days 4. Feeling tired or having little energy: several days 5. Poor appetite or overeating: not at all 6. Feeling bad about yourself - or that you are a failure or have let yourself or your family down: not at all 7. Trouble concentrating on things, such as reading the newspaper or watching television: not at all 8. Moving or speaking so slowly that other people could have noticed. Or the opposite - being so fidgety or restless that you have been moving around a lot more than usual: not at all 9. Thoughts that you would be better off or of hurting yourself in some way: not at all Total score: 2 Depression Screening Interpretation: Positive Depression Screening Follow-up: Existing condition and Follow-up Visit Requested Depression Screening Done: Yes 62561 - PHQ-9 Billing: Yes Source: Developed by Drs. Ming Carrillo, Hoda Banuelos, Silvano Smith and colleagues, with an educational temo from [employer]. Thrive Questionnaire Date Thrive assessed: 06/04/24 I am a: Patient What is your living situation today?: I have a steady place to live Within the past 12 months, did the food you bought not last and you didn't have the money to get more?: I choose not to answer this question Within the past 12 months, did you worry whether your food would run out before you got money to buy more?: I choose not to answer this question Do you have trouble paying for medicines?: No Do you have trouble getting transportation to medical appointments?: No Do you have trouble paying your heating and electricity bill?: No Do you have trouble taking care of your child, family member or friend?: No Do you have trouble with day-to-day activities such as bathing, preparing meals, shopping, managing finances, etc.?: No Are you currently unemployed and looking for a job?: No Are you interested in more education?: No Please select the resources that you would like help with: None Currently or been in a relationship where the following occur: I choose not to answer THRIVE Score: 0 AUDIT C Alcohol Use Questionnaire (AUDIT-C) 1. How often do you have a drink containing alcohol?: Never Total Score: 0 DUGLAS-7 AMB Questionnaire DUGLAS-7 Date DUGLAS - 7 assessed: 06/04/24 Feeling nervous, anxious, or on edge: 0 = Not at all Not being able to stop or control worryin = Not at all Worrying too much about different things: 0 = Not at all Trouble relaxin = Not at all Being so restless that it is hard to sit still: 0 = Not at all Becoming easily annoyed or irritable: 1 = Several days Feeling afraid as if something awful might happen: 0 = Not at all Total DUGLAS-7 score (0-4 normal; 5-9 mild; 10-14 moderate; 15-21 severe): 1 Source: Developed by Drs. Ming Carrillo, Hoda Banuelos, Silvano Smith and colleagues, with an educational temo from [employer]. DUGLAS-7 Assessment Billing DUGLAS-7 Assessment Tool: DUGLAS-7 Assessment 65155 Review of Systems Const Details: - General: Reports feeling tired. - Psychiatric: Reports minimal depression; Reports mild anxiety. - Cardiovascular: Denies chest pain. - Respiratory: Denies shortness of breath, cough, or fever. Physical exam (Primary Care) Vital Signs: Last Vital Signs BP 130/86 06/04/24 09:17 BMI result Body Mass Index 27.8 Tobacco/Smoking Status: Tobacco use Status Tobacco use date assessed 05/09/24 06/04/24 09:17 Patient Tobacco Use Status Never used Tobacco 06/04/24 09:17 Tobacco use type 08/18/23 16:02 e-Cigarette/Vaping Use Never Used 06/04/24 09:17 PHQ-9: PHQ-9 Score PHQ-9: Total score 2 06/04/24 09:55 Depression Screening Interpretation: Positive Depression Screening Follow-up: Ex isting condition and Follow-up Visit Requested Thrive Assessment: Date of Thrive Assessment Date Thrive assessed 06/04/24 06/04/24 09:17 Currently or been in a relationship where the following occur: I choose not to answer Const Other: General: Cooperative, healthy appearing, comfortable, no acute distress and well developed Limitations: No limitations Head: Normal to inspection Ears: Hearing grossly normal bilaterally Nose: Normal external nose present Face and sinus: Normal facial exam Eyes: Appearance normal, both eyes and all related structures Neck: Normal visual inspection and Yes full ROM Respiratory: Normal respiratory effort and able to speak in complete sentences. Clear to auscultation bilaterally Cardiovascular: Regular rate and rhythm. Normal S1 and S2 GI: Normal to inspection. Soft to palpation and nontender Skin: No rashes or lesions noted Extremities: Normal to inspection Office Procedures Flu Questionnaire Does the patient have a severe egg allergy?: No Immunizations Fluarix Triv [id number] (PF) 45 mcg (15 mcg x 3)/0.5 mL IM syringe Performing Provider: Carmen Weller MD Performing Location: [facility] Documented (not given) by: EDITH Wilkinson on 06/04/24 09:25 Reason Not Given: Patient Refused Boostrix Tdap 2.5 Lf unit-8 mcg-5 Lf/0.5 mL intramuscular syringe Performing Provider: Carmen Weller MD Performing Location: [facility] [place] Administered by: EDITH Wilkinson on 06/04/24 10:02 Dose Route Admin Location Dispensed Lot Number Expiration Date [facility] [employer] 0.5 mL IM Left Deltoid 0.5 mL [id number] 07/18/26 73512-286-79 [employer] VIS Given Date VIS Provided VIS Publication Date 06/04/24 Single Vaccine 21 Eligibility Eligibility Date Funding Source Not [facility] Eligible 06/04/24 Private Coding Level of Care Code Est Pt Prev Care 40-64y(09528) Diagnoses Physical exam Z00.00 Additional Codes DUGLAS-7 Assessment Billing - DUGLAS-7 Assessment Tool: DUGLAS-7 Assessment 52575 ([id number]) PHQ-9 - 20646 - PHQ-9 Billing: Yes ([id number]) Time Spent (min) 31 Assessment & Plan Assessment & Plan (1) Physical exam: Code(s): Z00.00 - Encounter for general adult medical examination without abnormal findings Category: Medical Plan Essential Hypertension: - Continue current medication of amlodipine 10 mg daily. - Monitor blood pressure and reinforce adherence to antihypertensive regimen. Anemia, Pernicious: - Order vitamin level as part of fasting laboratory tests. Minimal Depression: - Monitor symptoms; consider counseling if PHQ-9 score increases. Anxiety: - Continue observing; no immediate intervention required unless symptoms exacerbate. Patient was informed and verbally consented to the use of an ambient scribe for clinic note documentation during this visit. I discussed the management of the patient's essential hypertension, ensuring he remains on the current dose of amlodipine. The importance of routine monitoring of blood pressure and adherence to medication was emphasized. We discussed the need for checking vitamin B12 levels due to pernicious anemia. I addressed his minimal depression symptoms, highlighting that current PHQ-9 scores do not warrant additional measures but reinforced observing for any increase in symptoms. Similar observation is suggested for mild anxiety unless it becomes more concerning. I explained the necessity of fasting lab tests to get updated information on cholesterol and glucose levels, kidney, and liver function. We talked about the tetanus vaccine, and I planned to administer it during this visit, explaining the standard ten-year interval for booster shots. Orders: Orders Influenza [id number] Immunization Today Z23 - Encounter for immunization Vitamin D 25-OH Total Today E55.9 - Vitamin D deficiency, unspecified Lipid Panel Today Z00.00 - Encounter for general adult medical examination without abnormal findings Comprehensive [place]. Panel Fast Today Z00.00 - Encounter for general adult medical examination without abnormal findings Vitamin B12 and Folate Today E53.8 - Deficiency of other specified B group vitamins Complete Blood Count Auto Diff Today R42 - Dizziness and giddiness TDaP Immunization Today Z23 - Encounter for immunization Patient Instructions: - Continue taking amlodipine 10 mg daily for hypertension. - Follow up with ordered fasting laboratory tests. - Monitor for changes in mood or increase in anxiety symptoms; notify if they worsen. - Maintain a healthy lifestyle, avoiding smoking and alcohol. - Stay for tetanus vaccine administration today.
[2024-06-04 09:17] VITALS: BP 130/86; BMI 27.8
== END 2024-06-04 10:03 | disposition home or self-care (01) ==
PROVIDERS: PCP Internal Medicine; Visit Provider Internal Medicine
DX: Z23 Encounter for immunization (principal); Z00.00 Encounter for general adult medical examination without abnormal findings

== ENCOUNTER → 2024-06-04 09:09 | Outpatient (BNVA) | payer OTHER, SELFPAY | PROVIDERS: PCP Internal Medicine; Visit Provider Internal Medicine | DX: Z00.00 Encounter for general adult medical examination without abnormal findings (principal); Z23 Encounter for immunization; E78.5 Hyperlipidemia, unspecified; J45.909 Unspecified asthma, uncomplicated | CPT/HCPCS: 90471; 90715; 96127; 99396 ==

== ENCOUNTER 2024-06-28 10:16 | Outpatient (REF) | payer OTHER, SELFPAY ==
[2024-06-28 10:24] LABS: MANUAL DIFF FLAG NO
[2024-06-28 11:05] LABS: Basophils Percent Auto 0.4 % (0-2); Eosinophils Absolute Auto 0.1 X10*3/uL (0.0-0.4); Eosinophils Percent Auto 1.9 % (0-4); Hematocrit 45.6 % (42.0-52.0); Hemoglobin 15.8 g/dl (14.0-18.0); Imm Gran Abs Auto 0.01 X10*3/uL (0.00-0.03); Imm Gran Pct Auto 0.2 % (0.0-0.4); Lymphocytes Absolute Auto 2.1 X10*3/uL (1.2-4.9); Lymphocytes Percent Auto 40.3 % (20-40); Mean Corpuscular HGB Conc 34.6 g/dl (31.0-36.0); Mean Corpuscular Hemoglobin 31.5 pg (27.0-33.0); Mean Platelet Volume 10.1 fL (9.4-12.4); Monocytes Absolute Auto 0.4 X10*3/uL (0.1-1.2); Monocytes Percent Auto 6.9 % (2-11); Neutrophils Absolute Auto 2.6 x10*3/uL (2.0-8.3); Neutrophils Percent Auto 50.3 % (45-73); Platelet Count 298 X10*3/uL (160-400); Red Blood Count 5.01 X10*6/uL (4.60-5.80); Red Cell Distribution Width 12.4 % (11.0-16.0); White Blood Count 5.2 X10*3/uL (4.8-10.8)
[2024-06-28 11:25] LABS: Alanine Aminotransferase 51 U/L (0-40); Albumin Level 4.6 g/dL (3.5-5.0); Alkaline Phosphatase 127 U/L (39-117); Anion Gap 11 (12-20); Aspartate Amino Transferase 37 U/L (5-37); Bilirubin Total 0.9 mg/dL (0.0-1.0); Blood Urea Nitrogen 9 mg/dL (9-16); Calcium 9.2 mg/dL (8.4-10.2); Carbon Dioxide 27 mmol/L (22-29); Chloride 107 mmol/L (96-108); Cholesterol 225 mg/dL (<200); Estimated Glomerular Filt Rate > 60; Glucose Fasting 107 mg/dL (60-99); HDL Cholesterol 46 mg/dL (>40); LDL Cholesterol Calculated 167 mg/dL (<100); Potassium 3.8 mmol/L (3.3-5.1); Sodium 141 mmol/L (135-145); Total Protein 7.7 g/dL (6.5-8.0); Triglycerides 64 mg/dL (<150)
[2024-06-28 11:45] LABS: Vitamin D 25-OH Total 12.9 ng/mL (>30)
[2024-06-28 11:49] LABS: Folate 10.8 ng/mL (> or = 4.0); Vitamin B12 449 pg/mL (200-900)
== END 2024-06-28 10:17 | disposition home or self-care (01) ==
LOC: HO.LAB 10:16
PROVIDERS: PCP Internal Medicine; Visit Provider Internal Medicine
DX: Z00.00 Encounter for general adult medical examination without abnormal findings (principal); R42 Dizziness and giddiness; E53.8 Deficiency of other specified B group vitamins; E55.9 Vitamin D deficiency, unspecified
CPT/HCPCS: 36415; 80053; 80061; 82306; 82607; 82746; 85025

== ENCOUNTER 2024-07-02 09:13 | Outpatient (REF) | payer OTHER, SELFPAY ==
--- NOTE | ~2024-07-02 | US_ITS ---
CLINICAL HISTORY: N20.0 - Calculus of kidney US Renal and urinary bladder Comparison: 04/11/2022 Findings: Right kidney normal size and echotexture, 10 cm length. Left kidney normal size and echotexture, 10.5 cm length. Small number of bilateral simple renal cysts measuring up to 13 mm. No urinary tract stone or hydronephrosis. Remote urinary bladder volume measures 154 mL. Postvoid urinary bladder volume measures 4.2 mL. Bilateral ureteral jets identified. IMPRESSION: 1. No hydronephrosis. 2. Small simple bilateral renal cysts. This document has been electronically signed by: Vanesa Prado MD on 07/02/2024 10:40:00
== END 2024-07-02 09:14 | disposition home or self-care (01) ==
LOC: HO.US 09:13
PROVIDERS: PCP Internal Medicine; Visit Provider Nurse Practitioner Family
DX: N20.0 Calculus of kidney (principal)
CPT/HCPCS: 76775

== ENCOUNTER → 2024-07-02 09:15 | Outpatient (BNV) | payer OTHER, SELFPAY | PROVIDERS: PCP Internal Medicine; Visit Provider Radiology Diagnostic Radiology | DX: N28.89 Other specified disorders of kidney and ureter (principal) | CPT/HCPCS: 76775 ==

== ENCOUNTER 2024-07-11 10:39 | Outpatient (AMB) | payer OTHER, SELFPAY ==
--- NOTE | 2024-07-11 10:47 | A.OFFVIS_ITS ---
Intake Visit Reasons: 6m/U/S Intake Note: Patient is Present for Follow Up Ultrasound Urology Medication: None Antibiotic Allergies: None Blood Thinners: None Renal Ultrasound: 07/02/2024 Accompanied by: Self / Same As Patient Allergies No Known Allergies [No Known Allergies*] Allergy (Verified 07/11/24 11:26) Medication List - Last Reconciled 07/11/24 by CHANELL Broderick amlodipine 10 mg PO DAILY cholecalciferol (vitamin D3) 125 mcg PO DAILY 90 days syringe (disposable) (BD Bulk Syringe Slip Tip) As directed HPI Comments Details: Francis is a very pleasant 38-year-old Turkish-speaking male patient of Dr. Lopez. He has a past medical history of asthma, migraines, fatty liver, hypercholesteremia, vitamin B12 deficiency, sleep apnea, nephrolithiasis, and vitamin-D deficiency. He presents to the office today for follow-up of his nephrolithiasis. Recent retroperitoneal ultrasound results reviewed with the patient today. Bilateral kidneys with no calculi and or hydronephrosis. Small number of bilateral simple renal cysts measuring 13 mm. Pre void bladder volume is approximately 150 mL. Postvoid bladder volume is approximately 5 mL. In discussion with the patient today he reports to be doing and feeling well. He denies having had any bothersome urinary issues or concerns since his last office visit here. He reports to be drinking plenty of water daily. Patient also with a history of small bilateral epididymal head cysts right side greater than left however he denies having had any scrotal pain. He denies urinary urgency, urinary frequency, incontinence, hematuria, dysuria, foul smelling urine, changes to urinary stream, flank pain, fever, and or chills. He is happy with his current voiding parameters. In office urinalysis results reviewed with the patient today. He otherwise offers no other issues or concerns. [facility] Medical History Asthma Migraine Fatty liver Hypercholesterolemia Vitamin B12 deficiency Obstructive sleep apnea Renal calculi Vitamin D deficiency Surgical History History of tooth extraction Family History Mother No problems noted. Father Hypertension Son In good health Son In good health Son In good health Sister In good health Brother No problems noted. Social History Household Members: Spouse and Family Household Members Other:: 5 Housing: House Do you presently have visiting nurse or other home services: No Alcohol intake: never Patient Tobacco Use Status: Never used Tobacco e-Cigarette/Vaping Use: Never Used Second Hand Smoke Exposure: No service: No Current occupational status: employed Current occupational exposures/hazards: No Cognitive needs: No Hearing needs: No Vision needs: Yes Review of Systems Const Reports no additional complaints Eyes Reports no additional complaints ENT Reports no additional complaints Card Reports as per HPI Resp Reports as per HPI GI Reports no additional complaints Reports as per HPI Musc Reports no additional complaints Neuro Reports no additional complaints Psych Reports no additional complaints Endo Reports no additional complaints Agus/Lymph Reports no additional complaints Aller/Immun Reports no additional complaints Physical Exam Const General: cooperative, healthy appearing, comfortable, no acute distress, well developed, alert and awake Orientation/consciousness: patient oriented x3 Limitations: no limitations HEENT Head: Yes normal to inspection, Yes normocephalic and Yes atraumatic Ears: hearing grossly normal bilaterally Eyes General: appearance normal, both eyes and all related structures Neck Neck: Yes normal visual inspection and Yes trachea midline Chest Chest palpation & inspection: normal inspection of the chest Resp Effort & Inspection: normal respiratory effort and able to speak in complete sentences Cardio Rate: regular rate GI Inspection: Yes normal to inspection Other: as per HPI General: Yes no CVA tenderness Penis: normal penis Meatus: meatus normal Back/Spine/Pelvis Back: no CVA tenderness Skin General skin exam: no rashes or lesions noted Neuro General: patient oriented x3 Extrem General: Yes normal to inspection Psych Appearance: grossly normal and well kempt Mental Status: mental status grossly normal Speech and movement: Normal speech and movement present and Clear speech present Affect: normal affect Attitude: cooperative Thought process: Normal thought process present Thought content: Normal thought content present Insight: Fair insight present (Psych) Judgement: Fair judgement present (Psych) Results AMB Urinalysis, Automated UA Leukoctes 0 Stewart/uL Last Edit by EDITH Segovia on 07/11/24 11:22 UA Nitrite Negative Last Edit by EDITH Segovia on 07/11/24 11:22 UA Urobilinogen 0.2 mg/dL Last Edit by Shira Love, A on 07/11/24 11:2 2 UA Protein 15 mg/dL Last Edit by Shira Love, A on 07/11/24 11:22 UA pH 7.5 Last Edit by Shira Love, A on 07/11/24 11:22 UA Blood 0 Salas/uL Last Edit by Shira Love, A on 07/11/24 11:22 UA Specific [place] 1.010 Last Edit by Shira Love, A on 07/11/24 11: 22 UA Ketone Negative Last Edit by Shira Love, A on 07/11/24 11:22 UA Bilirubin 0 mg/dL Last Edit by Shira Love, A on 07/11/24 11:22 UA Glucose 0 mg/dL Last Edit by Shira Love, A on 07/11/24 11:22 Results Reviewed Results Reviewed: Laboratory Last Values Urine pH (Auto) 7.5 07/11/24 10:49 Specific [place] (Auto) 1.010 07/11/24 10:49 Urine Protein (Auto) 15 mg/dL 07/11/24 10:49 Glucose (UA)(Auto) 0 mg/dL 07/11/24 10:49 Urine Ketones (Auto) Negative 07/11/24 10:49 Urine Blood (Auto) 0 Salas/uL 07/11/24 10:49 Urine Nitrite (Auto) Negative 07/11/24 10:49 Urine Bilirubin (Auto) 0 mg/dL 07/11/24 10:49 Urine Urobilinogen (Auto) 0.2 mg/dL 07/11/24 10:49 Leukocyte Esterase (Auto) 0 Stewart/uL 07/11/24 10:49 Date of Service: 07/02/24 US Renal and urinary bladder Comparison: 04/11/2022 Findings: Right kidney normal size and echotexture, 10 cm length. Left kidney normal size and echotexture, 10.5 cm length. Small number of bilateral simple renal cysts measuring up to 13 mm. No urinary tract stone or hydronephrosis. Remote urinary bladder volume measures 154 mL. Postvoid urinary bladder volume measures 4.2 mL. Bilateral ureteral jets identified. IMPRESSION: 1. No hydronephrosis. 2. Small simple bilateral renal cysts. Assessment & Plan Assessment & Plan (1) Kidney stone: Code(s): N20.0 - Calculus of kidney Category: Medical (2) Nocturia: Code(s): R35.1 - Nocturia Category: Medical (3) Scrotal pain: Code(s): N50.82 - Scrotal pain Category: Medical (4) Epididymal cyst: Code(s): N50.3 - Cyst of epididymis Category: Medical (5) Renal cyst: Code(s): N28.1 - Cyst of kidney, acquired Category: Medical Plan In office urinalysis results reviewed with the patient today; as noted above. Recent retroperitoneal ultrasound results reviewed with the patient today; as noted above. Discussed, educated, and stressed the importance of continuing to drink plenty of water daily. Discussed, educated, and stressed the importance of compliance with CPAP for overall health and well-being. Patient currently denies any bothersome urinary issues or concerns. Will obtain renal ultrasound in 6 months. Patient reports be happy with current voiding parameters. Follow-up in 6 months with imaging to be completed prior; or sooner with any issues, concerns, and or questions. Orders: Orders AMB Urinalysis Automated Today Z13.9 - Encounter for screening, unspecified US renal BI 6 Months N20.0 - Calculus of kidney Patient Instructions: The patient had an opportunity to ask questions regarding the treatment plan. All questions were answered. Physical exam, labs, and imaging were discussed and reviewed in detail. As well as risks, benefits, and discussion of treatment choices. No major barriers to understanding were identified. The patient expressed understanding and agreement with the above treatment plan. The patient was made aware they should contact our office by phone for worsening of their current condition, the appearance of new symptoms, or with any questions or concerns. Compliance is encouraged with any medications and follow up testing that is ordered. It is a privilege to be allowed the opportunity to participate in? your urological care.? Again, if you have any questions or concerns If you have any questions or concerns please do not hesitate to contact me. The office is [phone]. This note is constructed using voice recognition software. While every effort has been made to ensure accuracy used building materials yard worker errors may have been included. Yours sincerely, Ivonne Shea, BEAUTY [employer]IST-[employer] Coding Level of Care Code Est Pt Level 3 (05872) Diagnoses Kidney stone N20.0 Nocturia R35.1 Scrotal pain N50.82 Epididymal cyst N50.3 Renal cyst N28.1
== END 2024-07-11 11:35 | disposition home or self-care (01) ==
PROVIDERS: PCP Internal Medicine; Visit Provider Nurse Practitioner Family
DX: N20.0 Calculus of kidney (principal); R35.1 Nocturia; N50.82 Scrotal pain; N50.3 Cyst of epididymis; N28.1 Cyst of kidney, acquired; Z13.9 Encounter for screening, unspecified
CPT/HCPCS: 99213

== ENCOUNTER → 2024-07-11 10:39 | Outpatient (BNVA) | payer OTHER, SELFPAY | PROVIDERS: PCP Internal Medicine; Visit Provider Nurse Practitioner Family | DX: N20.0 Calculus of kidney (principal); N50.82 Scrotal pain; N50.3 Cyst of epididymis; N28.1 Cyst of kidney, acquired; R35.1 Nocturia | CPT/HCPCS: 81003; 99212 ==

== ENCOUNTER → 2024-07-16 19:30 | Outpatient (REF) | payer OTHER, SELFPAY | LOC: HO.SL 19:30 | PROVIDERS: PCP Internal Medicine; Visit Provider Physician Assistant Medical | DX: G47.33 Obstructive sleep apnea (adult) (pediatric) (principal); I10 Essential (primary) hypertension; G44.52 New daily persistent headache (NDPH) | CPT/HCPCS: 95810 ==

== ENCOUNTER 2024-07-25 09:19 | Outpatient (REF) | payer OTHER, SELFPAY ==
[2024-07-25 14:34] LABS: Influenza A PCR POSITIVE (Negative); Influenza B PCR NEGATIVE (Negative); Resp Syncy Virus RNA Qual PCR NEGATIVE (Negative); SARS COV2 PCR INHOUSE NEGATIVE (Negative)
--- OUTSIDE RECORDS SUMMARY | 2024-07-25 15:30 | XMS_ITS | Clinical Summary ---
Author Organization [facility] ity Address [address] [place] [address] Care Team Providers Care Enameler Name Role Phone Unavailable Primary Care Provider Unavailabl e Social History Tobacco Use Types Packs/Day Years Used Date Smoking Tobacco: Never Assessed Sex and Gender Information Value Date Recorded Sex Assigned at Not on file Gender Identity Not on file Sexual Orientation Not on file Plan of Treatment Health Maintenance Due Date Last Done Comments DTaP,Tdap,and Td Vaccines (1 - Tdap) 10/17/2002 Hepatitis B Vaccines (1 of 3 - 19+ 3-dose series) 10/17/2002 Cholesterol Screening (Lipid Panel) 05/30/2022 Depression Screening 05/30/2022 HIV Screening 05/30/2022 Hepatitis C Screening 05/30/2022 Social Influencers of Health Screening 05/30/2022 COVID-19 Vaccine (2023-2 5 season) 2024 Influenza Vaccine (#1) 2024 HIB Vaccines Aged Out No longer eligi ble based on patient's age to complete this topic HPV Vaccines Aged Out No longer eligi ble based on patient's age to complete this topic Hepatitis A Vaccines Aged Out No long er eligible based on patient's age to complete this topic IPV Vaccines Aged Out No longer eligi ble based on patient's age to complete this topic MMR Vaccines Aged Out No longer eligi ble based on patient's age to complete this topic Meningococcal ACWY Vaccine Aged Out N o longer eligible based on patient's age to complete this topic Pneumococcal Vaccine: Pediat rics (0 to 5 Years) and At-Risk Patients (6 to 64 Years) Aged Out No longer eligible b ased on patient's age to complete this topic RSV Immunization Patients Un jamarcus 20 months Aged Out No longer eligible b ased on patient's age to complete this topic Varicella Vaccines Aged Out No longer eligible based on patient's age to complete this topic
--- OUTSIDE RECORDS SUMMARY | 2024-07-25 15:30 | XMS_ITS | Encounter Summary ---
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 Name Role Phone Unavailable Primary Care Provider Unavailabl e Encounter Details Date Type Department Care Team (Latest Contact Info) Description 09/19/2018 Abstract [facility]VERSION[facility] Dental, Provider, DDS Social History Tobacco Use Types Packs/Day Years Used Date Smoking Tobacco: Never Assessed Sex and Gender Information Value Date Recorded Sex Assigned at Male 04/26/2022 10:28 AM EDT Legal Sex Male 10:28 AM EDT Gender Identity Not on file Sexual Orientation Not on file documented as of this encounter Plan of Treatment Not on file documented as of this encounter Visit Diagnoses Not on filedocumented in this encounter
--- OUTSIDE RECORDS SUMMARY | 2024-07-25 15:30 | XMS_ITS | Clinical Summary ---
Author Organization [employer] Address [address] [facility] [address] [place] [address] Care Team Providers Care Muck Operator Name Role Phone Unavailable Primary Care Provider Unavailabl e Social History Tobacco Use Types Packs/Day Years Used Date Smoking Tobacco: Never Assessed Sex and Gender Information Value Date Recorded Sex Assigned at Male 04/26/2022 10:28 AM EDT Legal Sex Male 10:28 AM EDT Gender Identity Not on file Sexual Orientation Not on file Plan of Treatment Health Maintenance Due Date Last Done Comments Depression Screening 1983 Lipid Panel 1983 Alcohol/Substance Use Screening 1995 Tobacco Screening 1995 Family Planning (PISQ) 10/17/1998 DTaP/Tdap/Td Vaccines (1 - Tdap) 10/17/2002 Hepatitis B Vaccines (1 of 3 - 19+ 3-dose series) 10/17/2002 COVID-19 Vaccine ( - 2023-2 5 season) 2024 Influenza Vaccine (#1) 2024 Zoster Vaccines (1 of 2) 10/17/2033 RSV Patients and Pa tients Aged 60 years or older (1 - 1-dose 75+ series) 10/17/2058 HIB Vaccines Aged Out No longer eligi [...] patient's age to complete this topic Meningococcal Vaccine Aged Out No clair aureliano eligible based on patient's age to complete this topic Pneumococcal Vaccine: Pediat rics (0 to 5 Years) and At-Risk Patients (6 to 49) Years) Aged Out No longer eligible b ased on patient's age to complete this topic RSV under 20 months Aged Out No longe r eligible based on patient's age to complete this topic Rotavirus Vaccines Aged Out No longer eligible based on patient's age to complete this topic
== END 2024-07-25 09:20 | disposition home or self-care (01) ==
LOC: HO.LNP 09:19
PROVIDERS: PCP Internal Medicine; Visit Provider Physician Assistant
DX: J06.9 Acute upper respiratory infection, unspecified (principal)
CPT/HCPCS: 0241U; 99212

== ENCOUNTER 2024-07-25 09:19 | Outpatient (AMB) | payer OTHER, SELFPAY ==
--- NOTE | 2024-07-25 09:59 | MHC.OFFWIV ---
Intake Vital Signs 07/25/24 10:04 Height 5 ft 11 in Weight 196 lb BMI 27.3 BP 124/80 Blood Pressure Location Rt brachial Position Sitting Pulse 83 Pulse Source Pulse Oximeter Temp 97.8 F Temp Source Oral Pulse Oximetry (%) 98 Oxygen Delivery Method Room Air Intake Visit Reasons: EP-fever, headaches, chills, body ache Intake Note: Patient here for fever, headaches,chills and body aches that have been present for a couple of days. Patient Tobacco Use Status: Never used Tobacco Allergies No Known Allergies [No Known Allergies*] Allergy (Verified 07/25/24 10:07) Do you need a note to return to daycare/school/sports/work: No HPI HPI Comments History of Present Illness Details He presents to office with 3 days of cold symptoms He admits to headache, body aches, fever/chills + runny nose, slight st + cough+ phlegm associated No SOB or CP He tried DayQuil and Motrin 800mg x 2 days which helped Daughter and son sick at home Pt also mentioned he felt 3 bumps on R upper abdomen skin wall Ongoing and unchanged x 3 weeks Has not seen anyone for it States only bothersome when touching No stomach or abdomen related complaints No skin color changes diplomatic interpreter services used [facility] Medical History Asthma Migraine Fatty liver Hypercholesterolemia Vitamin B12 deficiency Obstructive sleep apnea Renal calculi Vitamin D deficiency Surgical History History of tooth extraction Family History Mother No problems noted. Father Hypertension Son In good health Son In good health Son In good health Sister In good health Brother No problems noted. Social History Household Members: Spouse and Family Household Members Other:: 5 Housing: House Do you presently have visiting nurse or other home services: No Alcohol intake: never Patient Tobacco Use Status: Never used Tobacco e-Cigarette/Vaping Use: Never Used Second Hand Smoke Exposure: No service: No Current occupational status: employed Current occupational exposures/hazards: No Cognitive needs: No Hearing needs: No Vision needs: Yes Review of Systems Const Reports body aches, Reports chills, Reports fatigue and Reports fever(s) Eyes Denies change in vision ENT Denies dizziness, Denies otalgia, Reports nasal congestion, Denies sinus pressure and Reports sore throat Card Denies chest pain, Denies syncope and Denies dyspnea Resp Denies change in phlegm color, Denies chest congestion, Reports cough and Denies dyspnea GI Denies abdominal pain, Denies diarrhea, Denies nausea and Denies vomiting Musc Reports myalgias Skin/Breast Denies erythema, Denies rash and Reports other (skin bumps R upper abdomen) Neuro Denies dizziness and Denies syncope Endo Reports fatigue Physical Exam Vital Signs: Last Vital Signs Temp 97.8 F 07/25/24 10:04 Pulse 83 07/25/24 10:04 BP 124/80 07/25/24 10:04 Pulse Ox 98 07/25/24 10:04 Oxygen Delivery Method Room Air 07/25/24 10:04 BMI result Body Mass Index 27.3 General: Non-toxic, NAD. Speaking full sentences. Skin: Warm dry throughout Eye: EOMI HENT: Airway patent. Uvula midline. No pharyngeal erythema or edema. 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 Bilateral canals clear. TM non-erythematous, non-bulging. No TM perforation or hemotympanum noted. Lymph: No lumphadenopathy to neck or submandibular region Respiratory: CTA bilaterally. No wheezes, rales or rhonchi Cardiac: RRR. No murmur Abdomen: Abdomen non-distended, No rashes or striae. There is three palpable slightly tender circular lesions near RUQ of abdominal wall. No Liver involvement palpated. No dilated veins or organomeagly. Neurology: Alert. No aphasia or facial droop. Gait without abnormality Psych: Good mood and affect Assessment & Plan Assessment & Plan (1) Upper respiratory infection: Code(s): J06.9 - Acute upper respiratory infection, unspecified Qualifiers: URI type: unspecified viral URI Qualified Code(s): J06.9 - Acute upper respiratory infection, unspecified Plan: Patient seen and evaluated. Non-toxic appearing Discussed Ibuprofen and tessalon for cough flu.rsv.covid swab obtained and sent Told to monitor abdomenal wall small masses ? lipomas If not resolved when infection resolves, then he needs to be re-evaluated for it Patient gave verbal understanding using spanish medical interpreter and had no additional questions or concerns at time of discharge All questions answered Orders: Orders SARS-CoV2/FLU/RSV Today J06.9 - Acute upper respiratory infection, unspecified Medications: New benzonatate 200 mg PO BID-TID PRN 14 caps 0RF cough ibuprofen 800 mg PO Q8H PRN 14 tabs 0RF pain Coding Level of Care Code Est Pt Level 3 (04300) Diagnoses Viral upper respiratory tract infection J06.9 URI type: unspecified viral URI
[2024-07-25 10:04] VITALS: BP 124/80; PULSE 83; TEMP 36.6; O2SAT 98; BMI 27.3
== END 2024-07-25 10:50 | disposition home or self-care (01) ==
PROVIDERS: PCP Internal Medicine; Visit Provider Physician Assistant
DX: J06.9 Acute upper respiratory infection, unspecified (principal)

== ENCOUNTER 2024-09-10 09:16 | Outpatient (REF) | payer OTHER, SELFPAY ==
--- NOTE | ~2024-09-10 | US_ITS ---
EXAMINATION: US ABDOMEN COMPLETE WITH LIVER ELASTOGRAPHY HISTORY: R74.01 - Elevation of levels of liver transaminase levels TECHNIQUE: Real-time grayscale ultrasound imaging of the abdomen was performed and images were reviewed. COMPARISON: Comparison is made with the prior examination dated 05/12/2021. FINDINGS: Liver: The right lobe of the liver measures 14.7 cm in size. The left lobe of the liver measures 8.3 cm in size. The liver demonstrates increased echotexture, consistent with steatosis. No focal mass or intrahepatic biliary ductal dilatation is identified. There is normal hepatopedal flow in the portal vein. Ultrasound elastography of the liver was performed with 10 separate measurements of the liver parenchyma with the patient in the supine position. Measurements were obtained approximately 2 cm below Teresita's capsule and perpendicular to the capsule. Images are of satisfactory quality. The median shear wave velocity is 1.94 m/s. The interquartile range/median (IQR/median) is 0.08. Gallbladder and biliary tree: The gallbladder is unremarkable, without evidence of calculi, wall thickening, or pericholecystic fluid. There is no sonographic Shannon sign. The common bile duct is normal in caliber measuring 3 mm. Kidneys: The right kidney measures 11.8 cm in length. The left kidney measures 12.3 cm in length. There is a 1.3 cm cyst at the upper pole of the right kidney. There is an 8 mm nonobstructing calculus at the upper pole of the right kidney. The left kidney demonstrates 2 upper pole cysts measuring up to 1.3 cm in size. No left renal calculi are identified. There is no hydronephrosis. Pancreas: The pancreatic head, neck, and body are unremarkable. The pancreatic tail is obscured by bowel gas. Spleen: The spleen is normal in size and contour, measuring 8.9 cm in length. Abdominal aorta and inferior vena cava: The visualized portions of the abdominal aorta and inferior vena cava are normal in caliber. There is no free fluid in the abdomen. US/US abdomen comp w elastography IMPRESSION: Hepatic steatosis. The median shear wave velocity in the liver is 1.94 m/s, corresponding to a median liver stiffness of 11.45 kPa. The IQR/median value is 0.08. This is indicative of a quality data set. Findings are indicative of a high elastography value suggestive of compensated advanced chronic liver disease. REFERENCE: Society of Radiologists in Ultrasound Liver Stiffness Thresholds (2020): LIVER STIFFNESS THRESHOLDS: *Shear wave velocity less than 1.3 m/s (Liver Stiffness equal or less than 5 kPa): High probability of being normal. *Shear wave velocity less than 1.7 m/s (Liver Stiffness less than 9 kPa): In the absence of other known clinical signs, rules out compensated advanced chronic liver disease. *Shear wave velocity between 1.7-2.1 m/s (Liver Stiffness 9-13 kPa): Suggestive of compensated advanced chronic liver disease but need further test for confirmation. *Shear wave velocity between 2.1-2.4 m/s (Liver Stiffness 13-17 kPa): Rules in compensated advanced chronic liver disease. *Shear wave velocity greater than 2.4 m/s (Liver Stiffness over 17 kPa): Suggestive of clinically significant portal hypertension. QUALITY OF DATA SET: *IQR/Median value equal or less than 0.15 implies a quality data set. *IQR/Median value over 0.15 implies a poor quality data set. SIGNIFICANT CHANGE FROM PRIOR EXAM: Significant change if liver stiffness measurement is 10% or greater from prior exam. OTHER CONSIDERATIONS: The stage of liver fibrosis may be overestimated in the setting of acute hepatitis, liver inflammation, elevated liver function tests, hepatic vascular congestion, obstructive cholestasis, non-fasting state, and infiltrative diseases such as amyloidosis and lymphoma. In some patients with NAFLD, the liver stiffness thresholds for compensated advanced chronic liver disease may be lower. In causes other than viral hepatitis and NAFLD, liver stiffness thresholds are not well established. Electronically signed by: Ming Ness MD 09/10/2024 10:34 AM EDT
== END 2024-09-10 09:17 | disposition home or self-care (01) ==
LOC: HO.US 09:16
PROVIDERS: PCP Internal Medicine; Visit Provider Internal Medicine
DX: R74.01 Elevation of levels of liver transaminase levels (principal); M25.512 Pain in left shoulder; G89.29 Other chronic pain
CPT/HCPCS: 76700; 76981; 99212

== ENCOUNTER → 2024-09-10 09:19 | Outpatient (BNV) | payer OTHER, SELFPAY | PROVIDERS: PCP Internal Medicine; Visit Provider Radiology Diagnostic Radiology | DX: K76.0 Fatty (change of) liver, not elsewhere classified (principal) | CPT/HCPCS: 76700 ==

== ENCOUNTER 2024-09-10 13:06 | Outpatient (AMB) | payer OTHER, SELFPAY ==
--- NOTE | 2024-09-10 13:10 | AM.OFFWIN_ITS ---
Intake Vital Signs 09/10/24 13:15 Height 5 ft 11 in Weight 196 lb BMI 27.3 BP 140/90 H Blood Pressure Location Lt brachial Position Sitting Pulse 92 Pulse Source Pulse Oximeter Pulse Oximetry (%) 98 Oxygen Delivery Method Room Air Intake Visit Reasons: EP-lt shoulder/chest pain Intake Note: Patient here for left shoulder pain that has been present for a while now, which comes back on and off. He states he is [employer] so he is always using that arms Patient Tobacco Use Status: Never used Tobacco Allergies No Known Allergies [No Known Allergies*] Allergy (Verified 09/10/24 13:14) Do you need a note to return to daycare/school/sports/work: No HPI HPI Comments History of Present Illness Details 38 y/o male patient who presents to the walk in clinic with c/o chronic left shoulder pain on/off for awhile now. He works as [employer] and repetitively uses that Arm. [facility], [facility] Medical History Asthma Migraine Fatty liver Hypercholesterolemia Vitamin B12 deficiency Obstructive sleep apnea Renal calculi Vitamin D deficiency Surgical History History of tooth extraction Family History Mother No problems noted. Father Hypertension Son In good health Son In good health Son In good health Sister In good health Brother No problems noted. Social History Household Members: Spouse and Family Household Members Other:: 5 Housing: House Do you presently have visiting nurse or other home services: No Alcohol intake: never Patient Tobacco Use Status: Never used Tobacco e-Cigarette/Vaping Use: Never Used Second Hand Smoke Exposure: No service: No Current occupational status: employed Current occupational exposures/hazards: No Cognitive needs: No Hearing needs: No Vision needs: Yes Review of Systems Const All systems reviewed & are unremarkable except as noted in HPI and below Physical Exam Vital Signs: Last Vital Signs Pulse 92 09/10/24 13:15 BP 140/90 H 09/10/24 13:15 Pulse Ox 98 09/10/24 13:15 Oxygen Delivery Method Room Air 09/10/24 13:15 BMI result Body Mass Index 27.3 Const General: cooperative and no acute distress Orientation/consciousness: patient oriented x3 Neuro General: patient oriented x3, gait normal and moves all extremities Extrem Left upper extremity: shoulder/upper arm Details: inspection abnormal, tenderness Location: of the clavicle and of the proximal humerus and normal ROM; no ecchymosis, no crepitus, no deformity and no unsual warmth Psych Speech and movement: Normal speech and movement present Assessment & Plan Assessment & Plan (1) Left shoulder pain: Code(s): M25.512 - Pain in left shoulder Qualifiers: Chronicity: chronic Qualified Code(s): M25.512 - Pain in left shoulder; G89.29 - Other chronic pain Plan: Ordered Muscle relaxants NSAIDs or Acetaminophen for pain relief ice/Hot Rest joint. Ordered PT. Orders: Orders PT Evaluation and Treatment Today G89.29 - Other chronic pain, M25.512 - Pain in left shoulder Medications: New metaxalone 800 mg PO BID 20 tabs 0RF G89.29 - Other chronic pain, M25.512 - Pain in left shoulder lidocaine 5% leave on most painful area for up to 12 hrs 1 patch topical DAILY 30 ea 0RF G89.29 - Other chronic pain, M25.512 - Pain in left shoulder Coding Level of Care Code Est Pt Level 4 (22488) Diagnoses Chronic left shoulder pain M25.512; G89.29 Chronicity: chronic Time Spent (min) 20
[2024-09-10 13:15] VITALS: BP 140/90; PULSE 92; O2SAT 98; BMI 27.3
--- OUTSIDE RECORDS SUMMARY | 2024-09-10 15:16 | XMS_ITS | Clinical Summary ---
Author Organization Veronika Pry[facility] ity Address [address] [place] [address] Care Team Providers Care Chief Clinical Officer Name Role Phone Unavailable Primary Care Provider Unavailabl e Social History Tobacco Use Types Packs/Day Years Used Date Smoking Tobacco: Never Assessed Sex and Gender Information Value Date Recorded Sex Assigned at Not on file Legal Sex Male 4:53 AM EST Gender Identity Not on file Sexual Orientation [...] patient's age to complete this topic Meningococcal B Vacine Aged Out No lo nger eligible based on patient's age to complete [...]
--- OUTSIDE RECORDS SUMMARY | 2024-09-10 15:16 | XMS_ITS | Encounter Summary ---
Author Organization [employer] Address [address] [facility] [address] [place] [address] Care Team Providers Care Addiction Counselor Name Role Phone Unavailable Primary Care Provider Unavailabl e Encounter Details Date Type Department Care Team (Latest Contact Info) Description 09/19/2018 Abstract [facility] CONVERSIONS Dental, Provider, DDS Social History [...]
--- OUTSIDE RECORDS SUMMARY | 2024-09-10 15:16 | XMS_ITS | Clinical Summary ---
Author Organization [employer] Address [address] [facility] [address] [place] [address] Care Team Providers Care Azure Architect Name Role Phone Unavailable Primary Care Provider [...]
== END 2024-09-10 13:39 | disposition home or self-care (01) ==
PROVIDERS: PCP Internal Medicine; Visit Provider Nurse Practitioner Family
DX: M25.512 Pain in left shoulder (principal); G89.29 Other chronic pain

== ENCOUNTER 2024-10-01 21:44 | Emergency (ER) | payer OTHER, SELFPAY ==
--- NOTE | 2024-10-01 | ECG_ITS ---
Test Reason : CP Blood Pressure : */* mmHG Vent. Rate : 82 BPM Atrial Rate : 82 BPM P-R Int : 152 ms QRS Dur : 94 ms QT Int : 382 ms P-R-T Axes : 14 -32 40 degrees QTcB Int : 446 ms Normal sinus rhythm Left axis deviation Cannot rule out Anterior infarct , age undetermined Inferior infarct Abnormal ECG When compared with ECG of 16-May-2023 12:43, Cannot rule out anterior infarct Referred By: Generic ED Physician Electronically Signed By: Quan Gannon
[2024-10-01 21:49] VITALS: BP 150/97; PULSE 83; RESP 20; TEMP 36.8; O2SAT 99; BMI 27.2
[2024-10-01 22:16] LABS: MANUAL DIFF FLAG NO
[2024-10-01 22:17] LABS: Basophils Percent Auto 0.6 % (0-2); Eosinophils Absolute Auto 0.1 X10*3/uL (0.0-0.4); Eosinophils Percent Auto 1.2 % (0-4); Hematocrit 41.2 % (42.0-52.0); Hemoglobin 14.6 g/dl (14.0-18.0); Imm Gran Abs Auto 0.01 X10*3/uL (0.00-0.03); Imm Gran Pct Auto 0.1 % (0.0-0.4); Lymphocytes Absolute Auto 2.7 X10*3/uL (1.2-4.9); Lymphocytes Percent Auto 38.3 % (20-40); Mean Corpuscular HGB Conc 35.4 g/dl (31.0-36.0); Mean Corpuscular Hemoglobin 31.5 pg (27.0-33.0); Mean Platelet Volume 9.7 fL (9.4-12.4); Monocytes Absolute Auto 0.5 X10*3/uL (0.1-1.2); Monocytes Percent Auto 6.5 % (2-11); Neutrophils Absolute Auto 3.7 x10*3/uL (2.0-8.3); Neutrophils Percent Auto 53.3 % (45-73); Platelet Count 285 X10*3/uL (160-400); Red Blood Count 4.63 X10*6/uL (4.60-5.80); Red Cell Distribution Width 12.6 % (11.0-16.0); White Blood Count 6.9 X10*3/uL (4.8-10.8)
--- NOTE | 2024-10-01 22:17 | ED.CHESTPAIN ---
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 after that patient was sitting and noticed suddenly left arm having pain and cold no discoloration of the complaining of pain in the left chest does have anxiety but did not feel anxiety at that time Related Data Previous Rx's ?Medication ?Instructions ?Recorded syringe (disposable) 1 mL (BD Bulk #1 ea 06/09/23 Syringe Slip Tip) amlodipine 10 mg tablet 10 mg PO DAILY #30 tabs 07/25/24 ibuprofen 800 mg tablet 800 mg PO Q8H PRN pain #14 tabs 07/25/24 lidocaine 5 % topical patch 1 patch topical DAILY #30 ea 09/10/24 metaxalone 800 mg tablet 800 mg PO BID #20 tabs 09/10/24 cholecalciferol (vitamin D3) 125 125 mcg PO DAILY 90 days #90 caps 09/23/24 mcg (5,000 unit) capsule Allergies Allergy/AdvReac Type Severity Reaction Status Date / Time No Known Allergies Allergy Verified 10/01/24 21:55 [No Known Allergies*] Review of Systems Review of Systems: Yes all other systems are reviewed and are negative [facility] Past Medical History Medical History Asthma Migraine Fatty liver Hypercholesterolemia Vitamin B12 deficiency Obstructive sleep apnea Renal calculi Vitamin D deficiency Surgical History History of tooth extraction Family History Family History Mother No problems noted. Father Hypertension Son In good health Son In good health Son In good health Sister In good health Brother No problems noted. Social History Social History Household Members: Spouse and Family Household Members Other:: 5 Housing: House Do you presently have visiting nurse or other home services: No Alcohol intake: never Patient Tobacco Use Status: Never used Tobacco Smoked in Last 30 Days: No e-Cigarette/Vaping Use: Never Used Second Hand Smoke Exposure: No Use of substances other than those prescribed or required for medical reasons: No Advance Directives: No Advance Directives Information Provided: No service: No Current occupational status: employed Current occupational exposures/hazards: No Cognitive needs: No Hearing needs: No Vision needs: Yes Physical Exam Vital Signs: Vital Signs: Last Vital Signs Temp 97.8 F 10/02/24 00:48 Pulse 73 10/02/24 00:48 Resp 14 10/02/24 00:48 BP 136/93 H 10/02/24 00:48 Pulse Ox 98 10/02/24 00:48 O2 Del Method Room Air 10/02/24 00:48 BMI result Body Mass Index 27.2 Appearance: Alert. Oriented X3. No acute distress. Eyes: PERRLA, No Nystagmus ENT: Pharynx normal. Oral Mucosa moist Neck: Normal inspection. Neck supple. CVS: Normal heart rate and rhythm. Pulses normal. Respiratory: No respiratory distress. Equal air entry bilateral, no wheezing/rales/rhonchi Abdomen: Soft and nontender. Bowel sounds are present, no mass palpable, no CVA tenderness Skin: Skin warm and dry. Normal skin color. Normal skin turgor. Extremities: No lower extremity edema. No calf tenderness neurovascular intact Neuro: Oriented X 3. No motor deficit. No sensory deficit.No cerebellar signs , cranial nerves II-XII intact Medical Decision Making Medical Decision Making [facility] Narrative: Patient with atypical chest pain and left arm pain neurovascular intact 2 sets of cardiac enzymes negative EKG without ischemic changes patient advised to follow with PCP pain is likely musculoskeletal Differential Diagnosis Differential Diagnoses: The differential diagnosis associated with the presentation includes ACS/musculoskeletal pain Lab Data [facility] Lab Attestation statement: I reviewed the patient's lab results. 10/01/24 22:11 10/01/24 22:11 Labs: Lab Results 10/01/24 10/01/24 Range/Units 22:11 23:59 WBC 6.9 (4.8-10.8) X10*3/uL RBC 4.63 (4.60-5.80) X10*6/uL Hgb 14.6 (14.0-18.0) g/dl Hct 41.2 L (42.0-52.0) % MCV 89.0 (80.0-98.0) fL MCH 31.5 (27.0-33.0) pg MCHC 35.4 (31.0-36.0) g/dl RDW 12.6 (11.0-16.0) % Plt Count 285 (160-400) X10*3/uL MPV 9.7 (9.4-12.4) fL Immature Gran % (Auto) 0.1 (0.0-0.4) % Neut % (Auto) 53.3 (45-73) % Lymph % (Auto) 38.3 (20-40) % [place] % (Auto) 6.5 (2-11) % Eos % (Auto) 1.2 (0-4) % Baso % (Auto) 0.6 (0-2) % Lymph # (Auto) 2.7 (1.2-4.9) X10*3/uL [place] # (Auto) 0.5 (0.1-1.2) X10*3/uL Eos # (Auto) 0.1 (0.0-0.4) X10*3/uL Baso # (Auto) 0.0 (0.0-0.2) X10*3/uL Abs Immat Gran (auto) 0.01 (0.00-0.03) X10*3/uL Absolute Neuts (auto) 3.7 (2.0-8.3) x10*3/uL Absolute Nucleated RBC 0.000 (0.0-0.012) X10*3/uL Nucleated RBC % (auto) 0.0 (0.0-0.2) /100WBC PT 12.2 (10.9-12.4) SEC INR 1.0 (0.9-1.1) Sodium 142 (135-145) mmol/L Potassium 3.5 (3.3-5.1) mmol/L Chloride 108 (96-108) mmol/L Carbon Dioxide 25 (22-29) mmol/L Anion Gap 13 (12-20) BUN 12 (9-16) mg/dL Creatinine 0.87 (0.5-1.4) mg/dL Estim Creat Clear Calc 120.2 Estimated GFR > 60 Random Glucose 97 (60-115) mg/dL Calcium 9.2 (8.4-10.2) mg/dL Total Bilirubin 0.6 (0.0-1.0) mg/dL AST 30 (5-37) U/L ALT 30 (0-40) U/L Alkaline Phosphatase 118 H (39-117) U/L Troponin I High Sens < 2.7 < 2.7 (<3.5-35.0) ng/L Total Protein 7.7 (6.5-8.0) g/dL Albumin 4.7 (3.5-5.0) g/dL Influenza Type A (PCR) NEGATIVE (Negative) Influenza Type B (PCR) NEGATIVE (Negative) RSV RNA Qual (PCR) NEGATIVE (Negative) SARS-CoV-2 RNA (RT-PCR) NEGATIVE (Negative) Independent Interpretation I performed an independent interpretation of an: EKG Interpretation: Normal sinus rhythm heart rate 82 beats per minute left axis deviation no acute ST-T changes no acute ischemia Discharge Plan Discharge Clinical Impression: Anterior chest wall pain Patient Disposition: Home, Self-Care Instructions: Chest Wall Pain (ED) Additional Instructions: Your chest pain and arm pain is likely muscular workup is negative for cardiac event Follow with your PCP Tylenol/Motrin for pain Prescriptions: No Action (DME) BD Bulk Syringe Slip Tip 1 mL syringe See Rx Instructions .Route Qty: 1 2RF Rx Instructions: As directed amlodipine 10 mg tablet 10 mg PO DAILY Qty: 30 0RF cholecalciferol (vitamin D3) 125 mcg (5,000 unit) capsule 125 mcg PO DAILY 90 Days Qty: 90 0RF ibuprofen 800 mg tablet 800 mg PO Q8H PRN (Reason: pain) Qty: 14 0RF metaxalone 800 mg tablet 800 mg PO BID Qty: 20 0RF lidocaine 5 % adhesive patch,medicated 1 patch topical DAILY Qty: 30 0RF Rx Instructions: leave on most painful area for up to 12 hrs Interventions: ED Discharge Assessment Last Done: 10/02/24 00:48 Discharge Date/Time: 10/02/24 00:50 Print Language: Turkmen
[2024-10-01 22:23] LABS: Prothrombin Time 12.2 SEC (10.9-12.4)
--- OUTSIDE RECORDS SUMMARY | 2024-10-01 22:24 | XMS_ITS | Clinical Summary ---
Author Organization [facility] [employer] [facility] ity Address [address] [place] [address] Care Team Providers Care Assistant Professor Of History Name Role Phone Unavailable Primary Care Provider [...] age to complete this topic Meningococcal B Vaccine Aged Out No l onger eligible based on patient's age to complete [...]
--- OUTSIDE RECORDS SUMMARY | 2024-10-01 22:24 | XMS_ITS | Clinical Summary ---
Author Organization [employer] Address [address] [facility] [address] [place] [address] Care Team Providers Care Air Intelligence Specialist Name Role Phone Unavailable Primary Care Provider [...]
--- OUTSIDE RECORDS SUMMARY | 2024-10-01 22:24 | XMS_ITS | Encounter Summary ---
Author Organization [employer] Address [address] [facility] 7 [place] [address] Care Team Providers Care Agriculture Engineer Name Role Phone Unavailable Primary Care Provider Unavailabl e Encounter Details Date Type Department Care Team (Latest Contact Info) Description 09/19/2018 Abstract [facility] CONVERSIONS Dental, Provider, DDS Social History [...]
[2024-10-01 22:29] VITALS: BP 136/91; PULSE 82; RESP 13; O2SAT 100
[2024-10-01 22:31] LABS: Alanine Aminotransferase 30 U/L (0-40); Albumin Level 4.7 g/dL (3.5-5.0); Alkaline Phosphatase 118 U/L (39-117); Anion Gap 13 (12-20); Aspartate Amino Transferase 30 U/L (5-37); Bilirubin Total 0.6 mg/dL (0.0-1.0); Blood Urea Nitrogen 12 mg/dL (9-16); Calcium 9.2 mg/dL (8.4-10.2); Carbon Dioxide 25 mmol/L (22-29); Chloride 108 mmol/L (96-108); Creatinine Clr Calc Pharmacy 120.2; Estimated Glomerular Filt Rate > 60; Glucose Random 97 mg/dL (60-115); Potassium 3.5 mmol/L (3.3-5.1); Sodium 142 mmol/L (135-145); Total Protein 7.7 g/dL (6.5-8.0)
[2024-10-01 22:38] LABS: Troponin-I High Sensitivity < 2.7 ng/L (<3.5-35.0)
[2024-10-01 22:53] LABS: Influenza A PCR NEGATIVE (Negative); Influenza B PCR NEGATIVE (Negative); Resp Syncy Virus RNA Qual PCR NEGATIVE (Negative); SARS COV2 PCR INHOUSE NEGATIVE (Negative)
[2024-10-02 00:25] LABS: Troponin-I High Sensitivity < 2.7 ng/L (<3.5-35.0)
[2024-10-02 00:40] VITALS: BP 136/93; PULSE 73; RESP 14; TEMP 36.6; O2SAT 98
[2024-10-02 00:48] VITALS: BP 136/93; PULSE 73; RESP 14; TEMP 36.6; O2SAT 98
== END 2024-10-02 00:50 | disposition home or self-care (01) ==
PROVIDERS: Emergency Provider Internal Medicine; PCP Internal Medicine
DX: R07.89 Other chest pain (principal); I10 Essential (primary) hypertension; R42 Dizziness and giddiness; Z79.899 Other long term (current) drug therapy; Z03.818 Encounter for observation for suspected exposure to other biological agents ruled out
CPT/HCPCS: 0241U; 36415; 80053; 84484; 85025; 85610; 93005; 99283; 99284

== ENCOUNTER → 2024-10-01 21:45 | Outpatient (BNV) | payer OTHER, SELFPAY | PROVIDERS: Emergency Provider Internal Medicine; PCP Internal Medicine; Visit Provider Internal Medicine Cardiovascular Disease | DX: R94.31 Abnormal electrocardiogram [ECG] [EKG] (principal); R07.9 Chest pain, unspecified | CPT/HCPCS: 93010 ==

== ENCOUNTER 2024-10-25 10:19 | Outpatient (AMB) | payer OTHER, SELFPAY ==
--- NOTE | 2024-10-25 10:24 | AM.OFFWIN_ITS ---
Intake Vital Signs 10/25/24 10:31 Weight 203 lb BP 130/82 Blood Pressure Location Lt brachial Position Sitting Pulse 81 Pulse Source Pulse Oximeter Temp 97.8 F Temp Source Oral Pulse Oximetry (%) 98 Oxygen Delivery Method Room Air Intake Visit Reasons: EP tick bite on back Intake Note: Patient here for tick bite that he noticed a couple of days ago. Patient Tobacco Use Status: Never used Tobacco Allergies No Known Allergies [No Known Allergies*] Allergy (Verified 10/25/24 10:32) Do you need a note to return to daycare/school/sports/work: No HPI HPI Comments History of Present Illness Details Vietnamese video paraprofessional interpreter used for this visit. History of Present Illness - The patient is a 39-year-old male pres enting with concerns regarding a recent tick bite acquired during a fishing trip. - The patient described feeling a sensat ion on his back the following morning, after which his , a nurse, found and removed a tick embedded in his skin. - The removal was performed by breaking the tick into two pieces due to its deep embedding. - The area has a known presence of ticks - A conversation among peers suggested L yme disease, with peers reporting similar symptoms and experiences. - The patient recounted that the tick lee d not reached a stage of engorgement and points - The patient noted that the tick had at tached for about 36 hours, and was removed promptly upon discovery. Was not engorged. - Denies rash, fever or joint pain. Physical Exam General: Cooperative, healthy appearing, comfortable, no acute distress and well developed Orientation: Patient oriented x3 Limitations: No limitations Head: Normal to inspection Ears: Hearing grossly normal bilaterally Nose: Normal External nose present Face and sinus: Normal facial exam Eyes: Appearance normal, both eyes and all related structures Neck: Normal visual inspection and Yes full ROM Respiratory: Normal respiratory effort and able to speak in complete sentences. Skin: No rashes or lesions noted, mid left back has a small area of erythema, no warmth, drainage or infection noted. Neuro: Patient oriented x3 Extremities: Normal to inspection [facility] Medical History Asthma Migraine Fatty liver Hypercholesterolemia Vitamin B12 deficiency Obstructive sleep apnea Renal calculi Vitamin D deficiency Surgical History History of tooth extraction Family History Mother No problems noted. Father Hypertension Son In good health Son In good health Son In good health Sister In good health Brother No problems noted. Social History Household Members: Spouse and Family Household Members Other:: 5 Housing: House Do you presently have visiting nurse or other home services: No Alcohol intake: never Patient Tobacco Use Status: Never used Tobacco e-Cigarette/Vaping Use: Never Used Second Hand Smoke Exposure: No service: No Current occupational status: employed Current occupational exposures/hazards: No Cognitive needs: No Hearing needs: No Vision needs: Yes Review of Systems Const All systems reviewed & are unremarkable except as noted in HPI and below Physical Exam Vital Signs: Last Vital Signs Temp 97.8 F 10/25/24 10:31 Pulse 81 10/25/24 10:31 BP 130/82 10/25/24 10:31 Pulse Ox 98 10/25/24 10:31 Oxygen Delivery Method Room Air 10/25/24 10:31 Assessment & Plan Assessment & Plan (1) Tick bite of back: Code(s): S30.860A - Insect bite (nonvenomous) of lower back and pelvis, initial encounter; W57.XXXA - Bitten or stung by nonvenomous insect and other nonvenomous arthropods, initial encounter Qualifiers: Encounter type: initial encounter Qualified Code(s): S30.860A - Insect bite (nonvenomous) of lower back and pelvis, initial encounter; W57.XXXA - Bitten or stung by nonvenomous insect and other nonvenomous arthropods, initial encounter Plan: A single prophylactic dose of 200 mg doxycycline orally was provided to mitigate the risk of Lyme disease given the tick was attached for an estimated duration of approximately 36 hours before removal. The patient was educated on Lyme disease signs and symptoms and the importance of seeking further evaluation if such symptoms occur. The non-engorgement of the tick reduced transmission risk, hence providing reassurance while suggesting future observation for fever, rash or joint pain or skin changes commonly associated with Lyme disease. Patient was informed and verbally consented to the use of an ambient scribe for clinic note documentation during this visit. Medications: New doxycycline hyclate 200 mg (2 x 100 mg) PO once PRN 2 tabs 0RF tick bite ppx Coding Level of Care Code Est Pt Level 3 (46560) Diagnoses Tick bite of back, initial encounter S30.860A; W57.XXXA Encounter type: initial encounter
[2024-10-25 10:31] VITALS: BP 130/82; PULSE 81; TEMP 36.6; O2SAT 98
--- OUTSIDE RECORDS SUMMARY | 2024-10-25 11:43 | XMS_ITS | Clinical Summary ---
Author Organization [facility] [employer] [facility] ity Address [address] [place] [address] Care Team Providers Care Hogshead Liner Name Role Phone Unavailable Primary Care Provider [...] Vaccine (2023-2 5 season) 2024 Influenza Vaccine (Season Ended) 2025 HIB Vaccines Aged Out No longer eligi [...]
--- OUTSIDE RECORDS SUMMARY | 2024-10-25 11:43 | XMS_ITS | Clinical Summary ---
Author Organization [employer] Address [address] [facility] [address] [place] [address] Care Team Providers Care Client Onboarding Analyst Name Role Phone Unavailable Primary Care Provider [...]
--- OUTSIDE RECORDS SUMMARY | 2024-10-25 11:43 | XMS_ITS | Encounter Summary ---
Author Organization [employer] Address [address] [facility] [address] [place] [address] Care Team Providers Care Medicare Interviewer Name Role Phone Unavailable Primary Care Provider Unavailabl e Encounter Details Date Type Department Care Team (Latest Contact Info) Description 09/19/2018 Abstract [facility] CONVERSIONS Dental, Provider, DDS Social History Tobacco [...]
== END 2024-10-25 10:55 | disposition home or self-care (01) ==
PROVIDERS: PCP Internal Medicine; Visit Provider Physician Assistant
DX: S30.860A Insect bite (nonvenomous) of lower back and pelvis, initial encounter (principal); W57.XXXA Bitten or stung by nonvenomous insect and other nonvenomous arthropods, initial encounter

== ENCOUNTER → 2024-10-25 10:19 | Outpatient (BNVA) | payer OTHER, SELFPAY | PROVIDERS: PCP Internal Medicine; Visit Provider Physician Assistant | DX: S30.860A Insect bite (nonvenomous) of lower back and pelvis, initial encounter (principal); W57.XXXA Bitten or stung by nonvenomous insect and other nonvenomous arthropods, initial encounter | CPT/HCPCS: 99212 ==

== ENCOUNTER 2024-12-17 09:08 | Outpatient (REF) | payer OTHER, SELFPAY ==
--- NOTE | ~2024-12-17 | US_ITS ---
CLINICAL HISTORY: N20.0 - Calculus of kidney US Renal Comparison: US - US RENAL BI - 07/02/24 09:30 EST Findings: Right kidney normal size and echotexture, 11.3 cm length. Left kidney normal size and echotexture, 11.4 cm length. There are multiple bilateral kidney cysts. On the right, the largest cyst is within the upper pole and measures 1.3 x 1.5 x 1.3 cm in size. On the left, the largest cyst is within the midportion and measures 1.4 x 1.0 x 1.3 cm in size. There are no suspicious features. There is possible wall calcification associated with one of the right kidney cysts. No collecting system dilatation of either kidney. Normal color Doppler. IMPRESSION: 1. Multiple small cysts within the bilateral kidneys. 2. There are no visualized renal calculi. This document has been electronically signed by: Monserrat Marin MD on 12/19/2024 13:10:39
--- OUTSIDE RECORDS SUMMARY | 2024-12-17 09:50 | XMS_ITS | Encounter Summary ---
Author Organization [employer] Address [address] [place] [address] [address] [place] [address] Care Team Providers Care Student Financial Services Counselor Name Role Phone Unavailable Primary Care Provider Unavailabl e Encounter Details Date Type Department Care Team (Latest Contact Info) Description 09/19/2018 Abstract [facility] CONVERSIONS Dental, Provider, DDS Social History [...]
== END 2024-12-17 09:09 | disposition home or self-care (01) ==
LOC: HO.US 09:08
PROVIDERS: PCP Internal Medicine; Visit Provider Nurse Practitioner Family
DX: N20.0 Calculus of kidney (principal)
CPT/HCPCS: 76775

== ENCOUNTER → 2024-12-17 09:12 | Outpatient (BNV) | payer OTHER, SELFPAY | PROVIDERS: PCP Internal Medicine; Visit Provider Radiology Diagnostic Radiology | DX: N20.0 Calculus of kidney (principal) | CPT/HCPCS: 76775 ==

== ENCOUNTER 2025-01-07 10:30 | Outpatient (AMB) | payer OTHER, SELFPAY ==
--- NOTE | 2025-01-07 10:30 | A.OFFVIS_ITS ---
Intake Visit Reasons: 6m/US(set) Intake Note: Patient is Present for Follow Up Ultrasound Urology Medication: None Antibiotic Allergies: None Blood Thinners: None Renal Ultrasound: 12/17/24 Legislative Correspondent Required: Yes Legislative Correspondent Services: Legislative Correspondent Present Legislative Correspondent Name: [id number] Accompanied by: Self / Same As Patient Allergies No Known Allergies (No Known Allergies*) Allergy (Verified 01/07/25 10:55) Medication List - Last Reconciled 01/07/25 by CHANELL Broderick amlodipine 10 mg PO DAILY cholecalciferol (vitamin D3) 125 mcg PO DAILY 90 days [Compression stockings As directed] ibuprofen 800 mg PO Q8H PRN lidocaine 5% 1 patch topical DAILY syringe (disposable) (BD Bulk Syringe Slip Tip) As directed HPI Comments Details: Francis is a very pleasant 39-year-old Rwandan-speaking male patient of Dr. Lopez. He has a past medical history of asthma, migraines, fatty liver, hypercholesteremia, vitamin B12 deficiency, sleep apnea, nephrolithiasis, and vitamin-D deficiency. He presents to the office today for follow-up of his nephrolithiasis. Recent renal imaging results reviewed with the patient today 12/19 bilateral kidneys are normal in size and echotexture. There are multiple bilateral kidney cysts. On the right largest cyst within the upper pole measuring 1.5 cm on the left, the largest cyst is within the midportion and measures 1.4 cm. There is no suspicious features. There is a possible wall calcification associated with 1 of the kidney cysts. No hydronephrosis or renal calculi noted bilaterally. He discusses since his last office visit he has undergone repeat sleep study and adjustments on his CPAP have been made. He discusses how helpful this has been. He currently denies any bothersome urinary issues or concerns. He does however discuss having a maternal uncle who had issues with his liver and prostate and believes he could have had prostate cancer and would like to undergo surveillance monitoring. In office urinalysis results reviewed with the patient today. He denies urinary urgency, urinary maricruz quency, incontinence, hematuria, dysuria, foul smelling urine, changes to urinary stream, flank pain, fever, and or chills. He is happy with his current voiding parameters. He reports he is drinking plenty of water daily in his adding 1 oz of lemon juice to water. He otherwise offers no other issues or concerns. [facility], [facility] Medical History Asthma Migraine Fatty liver Hypercholesterolemia Vitamin B12 deficiency Obstructive sleep apnea Renal calculi Vitamin D deficiency Surgical History History of tooth extraction Family History Mother No problems noted. Father Hypertension Son In good health Son In good health Son In good health Sister In good health Brother No problems noted. Social History Household Members: Spouse and Family Household Members Other:: 5 Housing: House Do you presently have visiting nurse or other home services: No Alcohol intake: never Patient Tobacco Use Status: Never used Tobacco e-Cigarette/Vaping Use: Never Used Second Hand Smoke Exposure: No service: No Current occupational status: employed Current occupational exposures/hazards: No Cognitive needs: No Hearing needs: No Vision needs: Yes Review of Systems Const Reports no additional complaints Eyes Reports no additional complaints ENT Reports no additional complaints Card Reports as per HPI Resp Reports as per HPI GI Reports no additional complaints Reports as per HPI Musc Reports no additional complaints Neuro Reports no additional complaints Psych Reports no additional complaints Endo Reports no additional complaints Agus/Lymph Reports no additional complaints Aller/Immun Reports no additional complaints Physical Exam Const General: cooperative, healthy appearing, comfortable, no acute distress, well developed, alert and awake Orientation/consciousness: patient oriented x3 Limitations: language barrier HEENT Head: Yes normal to inspection, Yes normocephalic and Yes atraumatic Ears: hearing grossly normal bilaterally Eyes General: appearance normal, both eyes and all related structures Neck Neck: Yes normal visual inspection and Yes trachea midline Chest Chest palpation & inspection: normal inspection of the chest Resp Effort & Inspection: normal respiratory effort and able to speak in complete sentences Cardio Rate: regular rate GI Inspection: Yes normal to inspection Other: as per HPI General: Yes no CVA tenderness Penis: normal penis Meatus: meatus normal Back/Spine/Pelvis Back: no CVA tenderness Skin General skin exam: no rashes or lesions noted Neuro General: patient oriented x3 Extrem General: Yes normal to inspection Psych Appearance: grossly normal and well kempt Mental Status: mental status grossly normal Speech and movement: Normal speech and movement present and Clear speech present Affect: normal affect Attitude: cooperative Thought process: Normal thought process present Thought content: Normal thought content present Insight: Fair insight present (Psych) Judgement: Fair judgement present (Psych) Results Reviewed Results Reviewed: Date of Service: 12/17/24 Procedure(s): US renal BI Comparison: US - US RENAL BI - 07/02/24 09:30 EST Findings: Right kidney normal size and echotexture, 11.3 cm length. Left kidney normal size and echotexture, 11.4 cm length. There are multiple bilateral kidney cysts. On the right, the largest cyst is within the upper pole and measures 1.3 x 1.5 x 1.3 cm in size. On the left, the largest cyst is within the midportion and measures 1.4 x 1.0 x 1.3 cm in size. There are no suspicious features. There is possible wall calcification associated with one of the right kidney cysts. No collecting system dilatation of either kidney. Normal color Doppler. IMPRESSION: 1. Multiple small cysts within the bilateral kidneys. 2. There are no visualized renal calculi. Assessment & Plan Assessment & Plan (1) Renal cyst: Code(s): N28.1 - Cyst of kidney, acquired Category: Medical (2) Kidney stone: Code(s): N20.0 - Calculus of kidney Category: Medical (3) Family history of prostate cancer: Code(s): Z80.42 - Family history of malignant neoplasm of prostate Category: Medical Plan In office urinalysis results with the patient today; as noted above. Recent renal imaging results reviewed with the patient today; as noted above. Will continue with surveillance monitoring of renal cysts as well as nephrolithiasis. We discussed the importance of continuing to drink adequate amounts of water daily in relation to nephrolithiasis as well as overall health and well-being. Will obtain PSA for further assessment evaluation. He currently denies any bothersome urinary issues. He reports be happy with current voiding parameters. We discussed the importance of compliance since CPAP for overall health and well-being. Continue adding 1 oz of lemon juice to water daily. Will obtain renal ultrasound in 6 months. Follow-up in 6 months with imaging and lab to be completed prior; or sooner with any issues, concerns, and or questions. Orders: Orders US renal BI 6 Months N20.0 - Calculus of kidney Prostate Specific Antigen Today Z80.42 - Family history of malignant neoplasm of prostate Patient Instructions: The patient had an opportunity to ask questions regarding the treatment plan. All questions were answered. Physical exam, labs, and imaging were discussed and reviewed in detail. As well as risks, benefits, and discussion of treatment choices. No major barriers to understanding were identified. The patient expressed understanding and agreement with the above treatment plan. The patient was made aware they should contact our office by phone for worsening of their current condition, the appearance of new symptoms, or with any questions or concerns. Compliance is encouraged with any medications and follow up testing that is ordered. It is a privilege to be allowed the opportunity to participate in? your urological care.? Again, if you have any questions or concerns If you have any questions or concerns please do not hesitate to contact me. The office is [phone]. This note is constructed using voice recognition software. While every effort has been made to ensure accuracy gas treater errors may have been included. Yours sincerely, CHANELL Broderick Coding Level of Care Code Est Pt Level 3 (84336) Diagnoses Renal cyst N28.1 Kidney stone N20.0 Family history of prostate cancer Z80.42
--- OUTSIDE RECORDS SUMMARY | 2025-01-07 11:18 | XMS_ITS | Clinical Summary ---
Author Organization [facility] [facility] ity Address [address] [place] [address] Care Team Providers Care Sand Wheeler Name Role Phone Unavailable Primary Care Provider [...] (2023-2 5 season) 2024 Influenza Vaccine (#1) 2025 HIB Vaccines Aged Out No longer [...] 5 Years) and At-Risk Patients (6 to 49 Years) Aged Out No longer eligible b ased on patient's age to complete this topic RSV Immunization Patients Un jamarcus 20 months Aged Out No longer eligible b ased on patient's age to complete this topic Varicella Vaccines Aged Out No longer eligible based on patient's age to complete this topic
--- OUTSIDE RECORDS SUMMARY | 2025-01-07 11:18 | XMS_ITS | Encounter Summary ---
Author Organization [employer] Address [address] [place] [address] 7 [place] [address] Care Team Providers Care Refuse Laborer Name Role Phone Unavailable Primary Care Provider Unavailabl e Encounter Details Date Type Department Care Team (Latest Contact Info) Description 09/19/2018 Abstract [facility] CONVERSIONS Dental, Provider, DDS Social History [...]
--- OUTSIDE RECORDS SUMMARY | 2025-01-07 11:18 | XMS_ITS | Patient Health Record ---
Author Organization [facility] Address [address] [place] [address] Care Team Providers Care Jde Developer Name Role Phone Po Kelsi ALVARADO Primary Care Provider Ming Salcedo [phone] Reason For Referral No Information Problems Problem Type SNOMED Code ICD Code Onset Dates Problem Status W/U Status Risk Notes Problem [id number] Blood in stool (K92.1) Active confirmed Problem 13131401 Diarrhea, unspecified type (R19.7) Active confirmed Plan Of Treatment Future Test Test Name Order Date COLONOSCOPY 12/31/2015 Insurance Providers Payer Name Payer Address Payer Phone Subscriber Number Group Number Insured Name Patient Relationship to Insured Coverage Start Date Coverage End Date [facility] [employer] [facility] [address] [address] [place], [place] [id number] BHAVYA VENCES Self - patient is the insured MEDICAID OF [facility] [address] [place] [address] [id number] BHAVYA VENCES Self - patient is the insured Medical (General) History Medical History History ICD Code Denies [place],DM,CVA,renal disease Mild asthma--when he has a URI Kidney stones
== END 2025-01-07 10:58 | disposition home or self-care (01) ==
LOC: HO.HUSH 10:30
PROVIDERS: PCP Internal Medicine; Visit Provider Nurse Practitioner Family
DX: N28.1 Cyst of kidney, acquired (principal); N20.0 Calculus of kidney; Z80.42 Family history of malignant neoplasm of prostate; Z13.9 Encounter for screening, unspecified
CPT/HCPCS: 99213

== ENCOUNTER → 2025-01-07 10:30 | Outpatient (BNVA) | payer OTHER, SELFPAY | PROVIDERS: PCP Internal Medicine; Visit Provider Nurse Practitioner Family | DX: N20.0 Calculus of kidney (principal); N28.1 Cyst of kidney, acquired; Z80.42 Family history of malignant neoplasm of prostate | CPT/HCPCS: 81003; 99212 ==

== ENCOUNTER 2025-02-28 14:03 | Outpatient (REF) | payer OTHER, SELFPAY ==
[2025-02-28 16:34] LABS: Alanine Aminotransferase 29 U/L (0-40); Albumin Level 4.5 g/dL (3.5-5.0); Alkaline Phosphatase 111 U/L (39-117); Anion Gap 11 (12-20); Aspartate Amino Transferase 27 U/L (5-37); Blood Urea Nitrogen 12 mg/dL (9-16); Calcium 8.7 mg/dL (8.4-10.2); Carbon Dioxide 25 mmol/L (22-29); Chloride 107 mmol/L (96-108); Estimated Glomerular Filt Rate > 60; Potassium 3.8 mmol/L (3.3-5.1); Sodium 139 mmol/L (135-145); Total Protein 7.2 g/dL (6.5-8.0)
== END 2025-02-28 14:04 | disposition home or self-care (01) ==
LOC: HO.HMGCLDS 14:03
PROVIDERS: PCP Internal Medicine; Visit Provider Physician Assistant Medical
DX: R00.2 Palpitations (principal); I10 Essential (primary) hypertension; Z79.899 Other long term (current) drug therapy
CPT/HCPCS: 36415; 80053; 84443; 99212

== ENCOUNTER 2025-02-28 14:03 | Outpatient (AMB) | payer OTHER, SELFPAY ==
[2025-02-28 14:05] VITALS: BP 112/74; PULSE 85; TEMP 37; O2SAT 98; BMI 28.9
--- NOTE | 2025-02-28 14:05 | AM.OFFWIN_ITS ---
Intake Vital Signs 02/28/25 14:05 Height 5 ft 11 in Weight 207 lb BMI 28.9 BP 112/74 Blood Pressure Location Lt brachial Position Sitting Pulse 85 Pulse Source Pulse Oximeter Temp 98.6 F Temp Source Oral Pulse Oximetry (%) 98 Oxygen Delivery Method Room Air Intake Visit Reasons: EP-hear palpitation, lt arm weird sensation Intake Note: pt presents with heart palpitations on/off for 5days, episodes last about 15 min along with pulse under left upper arm Patient Tobacco Use Status: Never used Tobacco Health Care Recruiter Required: Yes Allergies amlodipine Allergy (Intermediate, Verified 02/28/25 14:14) edema Do you need a note to return to daycare/school/sports/work: No HPI HPI Comments History of Present Illness Details History of Present Illness - The patient is a 39-year-old [place] [facility] male presenting with heart palpitations. - Heart palpitations began on Tuesday, occurring every 15 minutes, described as strong and noticeable. - The patient suspects the palpitations are related to a recent change in medication from almodipine to losartan. - Previously, the patient was taking giselle f of a 50 mg pill every other day, but now takes a full pill daily. - Blood pressure has improved from 159 t o 120/80 mmHg since the medication arleen nge. - The patient experienced leg swelling a nd liver pain with previous medication, leading to the change. 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 - He states he has seen a service electrician i n the past and the last time he saw them was in 2021. - He has no associated chest pain, SOB, dizziness, weakness, CALLE, abd pain, n/v/d, recent colds, leg edema or calf pain. Physical Exam General: Cooperative, healthy appearing, comfortable, no acute distress and well developed Orientation: Patient oriented x3 Respiratory: Normal respiratory effort and able to speak in complete sentences. Clear to auscultation bilaterally Cardiovascular: Regular rate and rhythm. Normal S1 and S2. GI: Normal to inspection. Soft to palpation and nontender. Skin: No rashes or lesions noted Neuro: Patient oriented x3 Extremities: Normal to inspection. No edema noted. Patient was informed and verbally consented to the use of an ambient scribe for clinic note documentation during this visit. [facility] Medical History Asthma Migraine Fatty liver Hypercholesterolemia Vitamin B12 deficiency Obstructive sleep apnea Renal calculi Vitamin D deficiency Surgical History History of tooth extraction Family History Mother No problems noted. Father Hypertension Son In good health Son In good health Son In good health Sister In good health Brother No problems noted. Social History Household Members: Spouse and Family Household Members Other:: 5 Housing: House Do you presently have visiting nurse or other home services: No Alcohol intake: never Patient Tobacco Use Status: Never used Tobacco e-Cigarette/Vaping Use: Never Used Second Hand Smoke Exposure: No service: No Current occupational status: employed Current occupational exposures/hazards: No Cognitive needs: No Hearing needs: No Vision needs: Yes Review of Systems Const All systems reviewed & are unremarkable except as noted in HPI and below Physical Exam Vital Signs: Last Vital Signs Temp 98.6 F 02/28/25 14:05 Pulse 85 02/28/25 14:05 BP 112/74 02/28/25 14:05 Pulse Ox 98 02/28/25 14:05 Oxygen Delivery Method Room Air 02/28/25 14:05 BMI result Body Mass Index 28.9 Assessment & Plan Assessment & Plan (1) Palpitations: Code(s): R00.2 - Palpitations Plan Most likely reaction to losartan vs anxiety vs cardiac arrhythmia vs electrolyte abnormality plan 1. Heart Palpitations - Consideration of medication side effects as a potential cause of palpitations. - Evaluation of blood pressure changes and potential electrolyte imbalances as contributing factors. - Will do an ECG to assess cardiac function and rule out arrhythmias. - needs a Holtor monitor to assess the palpiations - will send his PCP a message - needs f/u with service electrician 2. Hypertension - Blood pressure management appears effective with current medication regimen. - Monitoring for potential side effects of current medication is advised. - check BP at home daily - needs f/u with PCP to discuss medications Orders: Orders Comprehensive Met. Panel Today R00.2 - Palpitations TSH reflex Free T4 Today R00.2 - Palpitations Coding Level of Care Code Est Pt Level 4 (27700) Diagnoses Palpitations R00.2
--- OUTSIDE RECORDS SUMMARY | 2025-02-28 15:22 | XMS_ITS | Clinical Summary ---
Author Organization [employer] Address [address] [facility] [address]t [place] [address] Care Team Providers Care Insole Cementer Name Role Phone Unavailable Primary Care Provider [...] Comments Depression Screening 1983 Lipid Panel 1983 Disability Screening 1983 Alcohol/Substance Use Screening 1995 Tobacco Screening 1995 Family Planning (PISQ) 10/17/1998 HPV Vaccines (1 - Male 3-dos e series) 10/17/1998 DTaP/Tdap/Td Vaccines (1 - Tdap) 10/17/2002 Hepatitis B Vaccines (1 of 3 - 19+ 3-dose series) 10/17/2002 COVID-19 Vaccine (1 - 2023-2 5 season) 2024 Influenza Vaccine (#1) 2025 Zoster Vaccines (1 of 2) 10/17/2033 RSV [...] Years) and At-Risk Patients (6 to 49) Years Aged Out No longer eligible b ased on patient's age to complete this topic RSV under 20 months Aged Out No longe r eligible based on patient's age to complete this topic Rotavirus Vaccines Aged Out No longer eligible based on patient's age to complete this topic
--- OUTSIDE RECORDS SUMMARY | 2025-02-28 15:22 | XMS_ITS | Clinical Summary ---
Author Organization [facility] [employer] [facility] ity Address [address] [place] [address] Care Team Providers Care Training And Development Director Name Role Phone Unavailable Primary Care Provider [...] series) 10/17/2002 Cholesterol Screening (Lipid Panel) 05/30/2022 HIV Screening 05/30/2022 Hepatitis C Screening 05/30/2022 Social Influencers of Health Screening 05/30/2022 Depression Screening 06/27/2024 COVID-19 Vaccine (2023-2 5 season) 2025 Influenza Vaccine (#1) 2025 HIB Vaccines Aged [...]
--- OUTSIDE RECORDS SUMMARY | 2025-02-28 15:22 | XMS_ITS | Patient Health Record ---
Author Organization [facility] Address [address] [place] [address] Care Team Providers Care Talent Acquisition Consultant Name Role Phone Po Kelsi ALVARADO Primary Care Provider Ming Salcedo [phone] Reason For Referral No Information Problems Problem Type SNOMED Code ICD Code Onset Dates Problem Status W/U Status Risk Notes Problem [id number] Blood in stool (K92.1) Active confirmed Problem 22554320 Diarrhea, unspecified type (R19.7) Active confirmed Plan Of Treatment Future Test Test Name Order Date COLONOSCOPY 12/31/2015 Insurance Providers Payer Name Payer Address Payer Phone Subscriber Number Group Number Insured Name Patient Relationship to Insured Coverage Start Date Coverage End Date [facility] [employer] [facility] [address] [address] [place], [place] [id number] BHAVYA VENCES Self - patient is the insured MEDICAID OF [facility] [address] [place] [address] [phone] [id number] BHAVYA VENCES Self - patient is the insured Medical (General) History Medical History History ICD Code Denies [place],DM,CVA,renal disease Mild asthma--when he has a URI Kidney stones
--- OUTSIDE RECORDS SUMMARY | 2025-02-28 15:22 | XMS_ITS | Encounter Summary ---
Author Organization [employer] Address [address] [place] [address] 7 [place] [address] Care Team Providers Care Ip Network Architect Name Role Phone Unavailable Primary Care Provider Unavailabl e Encounter Details Date Type Department Care Team (Latest Contact Info) Description 09/19/2018 Abstract [facility] CONVERSIONS Dental, Provider, DDS Social [...]
== END 2025-02-28 15:19 | disposition home or self-care (01) ==
PROVIDERS: PCP Internal Medicine; Visit Provider Physician Assistant Medical
DX: R00.2 Palpitations (principal)

== ENCOUNTER → 2025-03-12 13:19 | Outpatient (REF) | payer OTHER, SELFPAY ==
--- NOTE | 2025-03-12 13:21 | HM_ITS ---
* Total monitoring time 2 days. * Underlying rhythm is sinus with an average rate of 81/Min. * Rare supraventricular ectopy. * Ventricular ectopy noted with a burden of 1%. * No significant pauses or high-grade AV blocks. * No patient markers or diary events. MTDD
--- OUTSIDE RECORDS SUMMARY | 2025-03-12 17:15 | XMS_ITS | Clinical Summary ---
Author Organization [facility] [employer] [facility] ity Address [address] [place] [address] Care Team Providers Care Insurance Adjuster Name Role Phone Unavailable Primary Care Provider [...]
--- OUTSIDE RECORDS SUMMARY | 2025-03-12 17:15 | XMS_ITS | Encounter Summary ---
Author Organization [employer] Address [address] [place] [address] 7 [place] [address] Care Team Providers Care Trolley Coach Driver Name Role Phone Unavailable Primary Care Provider Unavailabl e Encounter Details Date Type Department Care Team (Latest Contact Info) Description 09/19/2018 Abstract [facility] CONVERSIONS Dental, Provider, DDS Social [...]
--- OUTSIDE RECORDS SUMMARY | 2025-03-12 17:15 | XMS_ITS | Clinical Summary ---
Author Organization [employer] Address [address] [facility] 7t [place] [address] Care Team Providers Care Counseling Program Leader Name Role Phone Unavailable Primary Care Provider [...] COVID-19 Vaccine (1 - 2023-2 5 season) 2025 Influenza Vaccine (#1) 2025 Zoster Vaccines (1 [...]
--- OUTSIDE RECORDS SUMMARY | 2025-03-12 17:15 | XMS_ITS | Patient Health Record ---
Author Organization [facility] Address [address] [place] [address] Care Team Providers Care Manager Of Financial Reporting Name Role Phone Po Kelsi ALVARADO Primary Care Provider Ming Salcedo [phone] Reason For Referral No Information Problems Problem Type SNOMED Code ICD Code Onset Dates Problem Status W/U Status Risk Notes Problem [id number] Blood in stool (K92.1) Active confirmed Problem 82043505 Diarrhea, unspecified type (R19.7) Active confirmed Plan Of Treatment Future Test Test Name Order Date COLONOSCOPY 12/31/2015 Insurance Providers Payer Name Payer Address Payer Phone Subscriber Number Group Number Insured Name Patient Relationship to Insured Coverage Start Date Coverage End Date [facility] [employer] [facility] [address] [address] [place], [place] [id number] BHAVYA VENCES Self - patient is the insured MEDICAID OF [facility] [address] [place] [address] [id number] BHAVYA VENCES Self - patient is the insured Medical (General) History Medical History History ICD Code Denies [place],DM,CVA,renal disease Mild asthma--when he has a URI Kidney stones
== END ==
LOC: HO.CARD 13:19
PROVIDERS: Visit Provider Internal Medicine
DX: R00.2 Palpitations (principal)
CPT/HCPCS: 93225

== ENCOUNTER → 2025-03-12 13:21 | Outpatient (BNV) | payer OTHER, SELFPAY | PROVIDERS: Visit Provider Internal Medicine | DX: I49.49 Other premature depolarization (principal); I49.3 Ventricular premature depolarization | CPT/HCPCS: 93227 ==

== ENCOUNTER 2025-05-05 00:06 | Emergency (ER) | payer OTHER, SELFPAY ==
[2025-05-05 00:08] VITALS: BP 161/99; PULSE 75; RESP 18; TEMP 36.5; O2SAT 99; BMI 27.9
--- NOTE | 2025-05-05 00:11 | ECG_ITS ---
Test Reason : PALPITATIONS Blood Pressure : */* mmHG Vent. Rate : 70 BPM Atrial Rate : 70 BPM P-R Int : 168 ms QRS Dur : 96 ms QT Int : 394 ms P-R-T Axes : 0 -12 25 degrees QTcB Int : 425 ms Normal sinus rhythm Inferior infarct , age undetermined Abnormal ECG When compared with ECG of 01-Oct-2024 21:45, Inferior infarct is now Present Referred By: Generic ED Physician Electronically Signed By: Quan Gannon
[2025-05-05 00:28] LABS: MANUAL DIFF FLAG NO
[2025-05-05 00:29] LABS: Hematocrit 42.0 % (42.0-52.0); Hemoglobin 14.1 g/dl (14.0-18.0); Imm Gran Abs Auto 0.00 X10*3/uL (0.00-0.03); Imm Gran Pct Auto 0.0 % (0.0-0.4); Lymphocytes Absolute Auto 2.5 X10*3/uL (1.2-4.9); Mean Corpuscular HGB Conc 33.6 g/dl (31.0-36.0); Mean Corpuscular Hemoglobin 31.6 pg (27.0-33.0); Mean Corpuscular Volume 94.2 fL (80.0-98.0); NRBC Abs Auto 0.000 X10*3/uL (0.0-0.012); NRBC Pct Auto 0.0 /100WBC (0.0-0.2); Platelet Count 243 X10*3/uL (160-400); Red Blood Count 4.46 X10*6/uL (4.60-5.80); White Blood Count 5.8 X10*3/uL (4.8-10.8)
[2025-05-05 00:49] LABS: Alanine Aminotransferase 34 U/L (0-40); Albumin Level 4.9 g/dL (3.5-5.0); Alkaline Phosphatase 107 U/L (39-117); Anion Gap 12 (12-20); Aspartate Amino Transferase 60 U/L (5-37); Blood Urea Nitrogen 18 mg/dL (9-16); Calcium 9.0 mg/dL (8.4-10.2); Carbon Dioxide 23 mmol/L (22-29); Chloride 107 mmol/L (96-108); Creatinine Clr Calc Pharmacy 119.1; Estimated Glomerular Filt Rate > 60; Potassium 3.8 mmol/L (3.3-5.1); Sodium 138 mmol/L (135-145); Total Protein 7.4 g/dL (6.5-8.0)
[2025-05-05 00:57] LABS: Troponin-I High Sensitivity < 2.7 ng/L (<3.5-35.0)
--- NOTE | 2025-05-05 02:05 | ED_ITS ---
HPI - Arrhythmia/Palpitations General Chief Complaint: Arrhythmia/Palpitations Stated Complaint: palpitations Time Seen by Provider: 05/05/25 01:41 Source: patient Mode of arrival: ambulatory Limitations: no limitations History of Present Illness ED Provider: Dr. Jessica Donis HPI narrative: Patient comes to the emergency room complaining of palpitations, no chest pain. Patient states that he has been having palpitations for months. Patient states that he had a Holter monitor done a few weeks ago and has an appointment pending with cardiology for the results. Patient states that every once in a while, he feels the palpitations, but not at this moment. No shortness of breath. Related Data Home Medications ?Medication ?Instructions ?Recorded ?Confirmed losartan 50 mg tablet 25 mg PO DAILY 02/28/25 Previous Rx's ?Medication ?Instructions ?Recorded syringe (disposable) 1 mL (BD Bulk #1 ea 06/09/23 Syringe Slip Tip) ibuprofen 800 mg tablet 800 mg PO Q8H PRN pain #14 t abs 07/25/24 Compression stockings #1 ea 12/11/24 Allergies Allergy/AdvReac Type Severity Reaction Status Date / Time amlodipine Allergy Intermediate edema Verified 05/05/25 00:11 Review of Systems 2 Review of Systems: Constitutional : No Weight loss, No Fever, No Chills, No Night Sweats, No Fatigue, No Malaise ENT/Mouth : No Hearing loss, No Ear Pain, No Nasal Congestion, No Sinus Pain, No Hoarseness, No sore throat, No Rhinorrhea, No Swallowing Difficulty Eyes: No Eye Pain, No Swelling, No Redness, No Foreign Body, No Discharge, No Vision Changes Cardiovascular : No Chest Pain, No SOB, No Dyspnea on Exertion, No Orthopnea, No Edema, complaining of Palpitations Respiratory : No Cough, No Sputum, No Wheezing, No Smoke Exposure, No Dyspnea Gastrointestinal : No Nausea, No Vomiting, No Diarrhea, No Constipation, No abdominal Pain, No Hematochezia, No Melena Genitourinary : no irregular bleeding, No Dysuria, No Urinary Frequency, No Hematuria, No Urinary Incontinence, No Urgency, No Flank Pain, No Urinary Flow Changes, No Hesitancy Musculoskeletal : No joint pain, No Myalgias, No Joint Swelling Skin : No Skin Lesions, No rash Neuro : No Weakness, No Numbness, No Paresthesias, No Loss of Consciousness, No Dizziness, No Headache Psych : No Anxiety/Panic, No Depression, No SI/HI/AH/VH, No Social Issues, Heme/Lymph: No Bruising, No Bleeding,No Lymphadenopathy Endocrine : No Polyuria, No Polydipsia, No Temperature Intolerance [facility] Past Medical History Medical History Asthma Migraine Fatty liver Hypercholesterolemia Vitamin B12 deficiency Obstructive sleep apnea Renal calculi Vitamin D deficiency Surgical History History of tooth extraction Family History Family History Mother No problems noted. Father Hypertension Son In good health Son In good health Son In good health Sister In good health Brother No problems noted. Social History Social History Household Members: Spouse and Family Household Members Other:: 5 Housing: House Do you presently have visiting nurse or other home services: No Alcohol intake: never Patient Tobacco Use Status: Never used Tobacco Smoked in Last 30 Days: No e-Cigarette/Vaping Use: Never Used Second Hand Smoke Exposure: No Advance Directives: No Advance Directives Information Provided: Yes Do you have a plan to hurt others: No Plan service: No Current occupational status: employed Current occupational exposures/hazards: No Cognitive needs: No Hearing needs: No Vision needs: Yes Physical Exam 2 Exam: Exam: Appearance: Alert. Oriented X3. No acute distress. Eyes: Pupils equal, round and reactive to light. ENT: Pharynx normal. Neck: Normal inspection. Neck supple. No lymph nodes noted. No crepitus CVS: Normal heart rate and rhythm. Pulses normal. Normal S1 and S2 Respiratory: No respiratory distress. Breath sounds normal. No Wheezing. No rales Abdomen: Soft and nontender. No rigidity. No distention. Skin: Skin warm and dry. Normal skin color. Normal skin turgor. Extremities: No lower extremity edema. No Lacerations. No Rash Neuro: Oriented X 3. No motor deficit. No sensory deficit. Moving all extremities. No slurred speech. CN 2 through 12 grossly intact Psych: calm, cooperative, normal affect Vital Signs: Vital Signs: Last Vital Signs Temp 97.7 F 05/05/25 00:08 Pulse 75 05/05/25 00:08 Resp 18 05/05/25 00:08 BP 161/99 H 05/05/25 00:08 Pulse Ox 99 05/05/25 00:08 O2 Del Method Room Air 05/05/25 00:08 BMI result Body Mass Index 27.9 Course Course Course Narrative: Patient has a history of palpitations, already had a Holter monitor, waiting results, Cardiology visit pending for May 28. All of patient's labs and imaging pending Medical Decision Making Medical Decision Making [facility] Narrative: My interpretation of EKG: Normal sinus rhythm, heart rate 70, no ST segment depression or elevation, no T-wave inversion, QTC 425 My interpretation of labs: Significant seen patient's chemistry or hematology, troponin negative. Patient has been in the monitoring coordinator. Patient does have occasional PVCs. Patient's heart rate within normal limits, blood pressure normal I discussed with the patient that at this time, the PVCs are present. However, nonsustained, intermittent. At this time, we will not start any medications. Patient has an appointment pending in couple of weeks with cardiology. Patient agrees with plan Differential Diagnosis Differential Diagnoses: The differential diagnosis associated with the presentation includes (Atrial fibrillation, SVT, PVCs) Admission/Observation Consideration of admission/observation: Escalation of care including admission/observation considered (Given patient's symptoms and presentation, observation was considered) Lab Data [facility] Lab Attestation statement: I reviewed the patient's lab results. 05/05/25 00:22 05/05/25 00:22 Labs: Lab Results 05/05/25 Range/Units 00:22 WBC 5.8 (4.8-10.8) X10*3/uL RBC 4.46 L (4.60-5.80) X10*6/uL Hgb 14.1 (14.0-18.0) g/dl Hct 42.0 (42.0-52.0) % MCV 94.2 (80.0-98.0) fL MCH 31.6 (27.0-33.0) pg MCHC 33.6 (31.0-36.0) g/dl RDW 12.6 (11.0-16.0) % Plt Count 243 (160-400) X10*3/uL MPV 10.3 (9.4-12.4) fL Immature Gran % (Auto) 0.0 (0.0-0.4) % Neut % (Auto) 47.2 (45-73) % Lymph % (Auto) 42.7 H (20-40) % Roberts % (Auto) 7.3 (2-11) % Eos % (Auto) 2.3 (0-4) % Baso % (Auto) 0.5 (0-2) % Lymph # (Auto) 2.5 (1.2-4.9) X10*3/uL Roberts # (Auto) 0.4 (0.1-1.2) X10*3/uL Eos # (Auto) 0.1 (0.0-0.4) X10*3/uL Baso # (Auto) 0.0 (0.0-0.2) X10*3/uL Abs Immat Gran (auto) 0.00 (0.00-0.03) X10*3/uL Absolute Neuts (auto) 2.7 (2.0-8.3) x10*3/uL Absolute Nucleated RBC 0.000 (0.0-0.012) X10*3/uL Nucleated RBC % (auto) 0.0 (0.0-0.2) /100WBC Sodium 138 (135-145) mmol/L Potassium 3.8 (3.3-5.1) mmol/L Chloride 107 (96-108) mmol/L Carbon Dioxide 23 (22-29) mmol/L Anion Gap 12 (12-20) BUN 18 H (9-16) mg/dL Creatinine 0.94 (0.5-1.4) mg/dL Estim Creat Clear Calc 119.1 Estimated GFR > 60 Random Glucose 90 (60-115) mg/dL Calcium 9.0 (8.4-10.2) mg/dL Total Bilirubin 0.7 (0.0-1.0) mg/dL AST 60 H (5-37) U/L ALT 34 (0-40) U/L Alkaline Phosphatase 107 (39-117) U/L Troponin I High Sens < 2.7 (<3.5-35.0) ng/L Total Protein 7.4 (6.5-8.0) g/dL Albumin 4.9 (3.5-5.0) g/dL Critical Care Time Critical Care Time Critical Care Time: Yes Total Critical Care Time: 35 Attestation: I have personally provided critical care time. Time includes review of lab data, radiology results, discussion with consultants, and monitoring for potential decompensation. Intervention performed as documented. Discharge Plan Discharge Clinical Impression: PVC (premature ventricular contraction), Palpitations Patient Disposition: Home, Self-Care Instructions: Heart Palpitations (ED), Premature Ventricular Contractions (ED) Additional Instructions: Please follow-up with your primary care physician tomorrow. If you have any worsening or new symptoms, please return to the emergency room or call 911 Prescriptions: No Action (DME) BD Bulk Syringe Slip Tip 1 mL syringe See Rx Instructions .Route Qty: 1 2RF Rx Instructions: As directed (DME) Compression stockings See Rx Instructions .Route .MEDSUPPLY Qty: 1 0RF Rx Instructions: As directed ibuprofen 800 mg tablet 800 mg PO Q8H PRN (Reason: pain) Qty: 14 0RF losartan 50 mg tablet 25 mg PO DAILY Print Language: Setswana
--- OUTSIDE RECORDS SUMMARY | 2025-05-05 02:07 | XMS_ITS | Encounter Summary ---
Author Organization [employer] Address [address] [place] [address] [address] [place] [address] Care Team Providers Care Church Official Name Role Phone Unavailable Primary Care Provider Unavailabl e Encounter Details Date Type Department Care Team (Latest Contact Info) Description 09/19/2018 Abstract [facility] CONVERSIONS Dental, Provider, DDS Social History Tobacco [...]
--- OUTSIDE RECORDS SUMMARY | 2025-05-05 02:07 | XMS_ITS | Clinical Summary ---
Author Organization [employer] Address [address] [facility] [address]t [place] [address] Care Team Providers Care Litigation Paralegal Name Role Phone Unavailable Primary Care Provider [...]
--- OUTSIDE RECORDS SUMMARY | 2025-05-05 02:07 | XMS_ITS | Patient Health Record ---
Author Organization [facility] Address [address] [place] [address] Care Team Providers Care Hospital Cleaning Specialist Name Role Phone Po Kelsi ALVARADO Primary Care Provider Ming Salcedo [phone] Reason For Referral No Information Problems Problem Type SNOMED Code ICD Code Onset Dates Problem Status W/U Status Risk Notes Problem Blood in stool (882587027) Blood in stool (K92.1) Active confirmed Problem Diarrhea (90649936) Diarrhea, unspecified type (R19.7) Active confirmed Plan Of Treatment Future Test Test Name Order Date COLONOSCOPY 12/31/2015 Insurance Providers Payer Name Payer Address Payer Phone Subscriber Number Group Number Insured Name Patient Relationship to Insured Coverage Start Date Coverage End Date [facility] [address] [address] [place], [place] [id number] BHAVYA VENCES Self - patient is the insured MEDICAID OF [facility] [address] [place] [address] [id number] BHAVYA VENCES Self - patient is the insured Medical (General) History Medical History History ICD Code Denies [place],DM,CVA,renal disease Mild asthma--when he has a URI Kidney stones
--- OUTSIDE RECORDS SUMMARY | 2025-05-05 02:08 | XMS_ITS | Clinical Summary ---
Author Organization [facility] [employer] [facility] it[facility] Address [address] [place] [address] Care Team Providers Care Insulation Board Calender Operator Name Role Phone Unavailable Primary Care [...] of 3 - 19+ 3-dose series) 10/17/2002 HPV Vaccines (1 - 3-dose SCD M series) 10/17/2010 Depression Screening 06/27/2024 COVID-19 Vaccine (1 - 2023-2 5 season) 2025 Influenza Vaccine (#1) 2025 RSV Immunization Adult Patie nts (1 - 1-dose 75+ series) 10/17/2058 HIB [...]
[2025-05-05 02:47] VITALS: BP 158/78; PULSE 64; RESP 18; TEMP 36.5; O2SAT 99
== END 2025-05-05 02:51 | disposition home or self-care (01) ==
PROVIDERS: Emergency Provider Emergency Medicine; PCP Internal Medicine
DX: I49.9 Cardiac arrhythmia, unspecified (principal); R00.2 Palpitations; Z79.899 Other long term (current) drug therapy
CPT/HCPCS: 36415; 80053; 84484; 85025; 93005; 99283; 99285

== ENCOUNTER → 2025-05-05 00:11 | Outpatient (BNV) | payer OTHER, SELFPAY | PROVIDERS: Emergency Provider Emergency Medicine; PCP Internal Medicine; Visit Provider Internal Medicine Cardiovascular Disease | DX: R94.31 Abnormal electrocardiogram [ECG] [EKG] (principal); R00.2 Palpitations | CPT/HCPCS: 93010 ==

== ENCOUNTER 2025-06-10 09:40 | Outpatient (AMB) | payer OTHER, SELFPAY ==
--- NOTE | 2025-06-10 09:49 | MHC.PC.OV ---
Vital Signs 06/10/25 09:52 Height 5 ft 11 in Weight 186 lb 6 oz BMI 26.0 BP 148/86 H Blood Pressure Location Lt brachial Position Sitting Respiration 18 Pulse 75 Pulse Source Pulse Oximeter Temp Source Temporal Artery Scan Pulse Oximetry (%) 99 Oxygen Delivery Method Room Air Intake Visit Reasons: Annual exam Premises Technician Required: No Accompanied by: Self / Same As Patient Allergies amlodipine Allergy (Intermediate, Verified 06/10/25 10:04) edema Medication List - Last Reconciled 06/10/25 by Carmen Weller MD [Compression stockings As directed] ibuprofen 800 mg PO Q8H PRN losartan 25 mg PO DAILY syringe (disposable) (BD Bulk Syringe Slip Tip) As directed Tobacco use date assessed: 06/10/25 Dental Screening Dental Screen Date: 06/10/25 Did you have a dental visit in the last 12 months?: Yes Did you have a dental problem in the last 6 months where you did not have access to dental care?: No Was dental information given to patient?: Patient has dentist HPI HPI Comments History of Present Illness Details The patient is a 39-year-old male presenting for an annual physical examination. He has a history of hypertension, for which he takes losartan 25 mg. The patient also has a history of sleep apnea and uses a CPAP machine, though he did not use it the previous night. The patient reports concerns about his fasting blood sugar levels, stating they are always between 100 to 110 mg/dL every morning. His recent random blood glucose was 90 mg/dL. His last lab work did not include a cholesterol panel but showed normal renal function and glucose. His father has a history of high blood pressure, and his mother has no known medical conditions. He denies a history of smoking or alcohol use. He takes ibuprofen as needed. He also reports taking omega-3, vitamin D3, and K2 supplements. [facility] Medical History Asthma Migraine Fatty liver Hypercholesterolemia Vitamin B12 deficiency Obstructive sleep apnea Renal calculi Vitamin D deficiency Surgical History History of tooth extraction Family History Mother No problems noted. Father Hypertension Son In good health Son In good health Son In good health Sister In good health Brother No problems noted. Social History Household Members: Spouse and Family Household Members Other:: 5 Housing: House Do you presently have visiting nurse or other home services: No Alcohol intake: never Patient Tobacco Use Status: Never used Tobacco e-Cigarette/Vaping Use: Never Used Second Hand Smoke Exposure: No service: No Current occupational status: employed Current occupational exposures/hazards: No Cognitive needs: No Hearing needs: No Vision needs: Yes Questionnaire Thrive Questionnaire Date Thrive assessed: 06/10/25 I am a: Patient What is your living situation today?: I have a steady place to live Within the past 12 months, did the food you bought not last and you didn't have the money to get more?: Never true Within the past 12 months, did you worry whether your food would run out before you got money to buy more?: Never true Do you have trouble paying for medicines?: No Do you have trouble getting transportation to medical appointments?: No Do you have trouble paying your heating and electricity bill?: No Do you have trouble taking care of your child, family member or friend?: No Do you have trouble with day-to-day activities such as bathing, preparing meals, shopping, managing finances, etc.?: No Are you currently unemployed and looking for a job?: No Are you interested in more education?: No THRIVE Score: 0 AUDIT C Alcohol Use Questionnaire (AUDIT-C) 1. How often do you have a drink containing alcohol?: Never 3. How often do you have six or more drinks on one occasion?: Never Total Score: 0 Score Reviewed/Action Taken: No DUGLAS-7 AMB Questionnaire DUGLAS-7 Date DUGLAS - 7 assessed: 06/10/25 Feeling nervous, anxious, or on edge: 0 = Not at all Not being able to stop or control worryin = Several days Worrying too much about different things: 1 = Several days Trouble relaxin = Several days Being so restless that it is hard to sit still: 0 = Not at all Becoming easily annoyed or irritable: 0 = Not at all Feeling afraid as if something awful might happen: 0 = Not at all Total DUGLAS-7 score (0-4 normal; 5-9 mild; 10-14 moderate; 15-21 severe): 3 Source: Developed by Drs. Ming Carrillo, Hoda Banuelos, Silvano Smith and colleagues, with an educational temo from [employer]. DUGLAS-7 Assessment Billing DUGLAS-7 Assessment Tool: DUGLAS-7 Assessment 94664 Review of Systems Const All systems reviewed & are unremarkable except as noted in HPI and below Card Denies chest pain at rest, Denies chest pain with activity, Denies edema, Denies irregular heart rhythm, Denies claudication, Denies dyspnea, Denies dyspnea on exertion, Denies orthopnea, Denies paroxysmal nocturnal dyspnea and Denies slow heart rate Resp Denies cough, Denies dyspnea and Denies dyspnea on exertion Physical exam (Primary Care) Vital Signs: Last Vital Signs Pulse 75 06/10/25 09:52 Resp 18 06/10/25 09:52 BP 148/86 H 06/10/25 09:52 Pulse Ox 99 06/10/25 09:52 Oxygen Delivery Method Room Air 06/10/25 09:52 BMI result Body Mass Index 26.0 Tobacco/Smoking Status: Tobacco use Status Tobacco use date assessed 06/10/25 06/10/25 10:00 Patient Tobacco Use Status Never used Tobacco 06/10/25 09:50 Tobacco use type 08/18/23 16:02 e-Cigarette/Vaping Use Never Used 06/10/25 09:50 Thrive Assessment: Date of Thrive Assessment Date Thrive assessed 06/10/25 06/10/25 10:00 HENMT Head: Yes normal to inspection, Yes normocephalic and Yes atraumatic Ears: external ears normal Eyes General: appearance normal, both eyes and all related structures Eyelids: Yes eyelids normal Conjunctivae: conjunctivae normal Neck Neck: Yes normal visual inspection and Yes supple Resp Effort & Inspection: normal respiratory effort Auscultation: clear to auscultation bilaterally Cardio Jugular venous distension: no JVD Rate: regular rate Rhythm: regular rhythm Heart sounds: S1 normal heart sound present and S2 normal heart sound present GI Inspection: Yes normal to inspection Palpation (GI): Soft to palpation and nontender Auscultation: normal bowel sounds Skin General skin exam: no rashes or lesions noted Neuro General: no focal motor deficits Extrem General: Yes full ROM Psych Appearance: grossly normal Coding Level of Care Code Est Pt Prev Care 40-64y(24863) Diagnoses Physical exam Z00.00 Additional Codes DUGLAS-7 Assessment Billing - DUGLAS-7 Assessment Tool: DUGLAS-7 Assessment 10989 ([id number]) Time Spent (min) 30 Assessment & Plan Assessment & Plan (1) Physical exam: Code(s): Z00.00 - Encounter for general adult medical examination without abnormal findings Category: Medical Plan Plan 1. Physical exam The patient is up to date on his tetanus vaccine and declined the flu shot. Orders have been placed for comprehensive lab work, including cholesterol, liver, and kidney function tests. A follow-up appointment will be scheduled. 1. Hypertension The patient is to continue taking his losartan 25 mg. He is advised to continue monitoring his blood pressure at home and report the readings when contacted. 2. Obstructive Sleep Apnea The patient is advised to continue using his CPAP machine for sleep apnea. Orders: Orders Lipid Panel Today E78.5 - Hyperlipidemia, unspecified Comprehensive [place]. Panel Fast Today I10 - Essential (primary) hypertension Medications: New losartan 25 mg PO DAILY 90 tabs 1RF 90 days
[2025-06-10 09:52] VITALS: BP 148/86; PULSE 75; RESP 18; O2SAT 99; BMI 26.0
== END 2025-06-10 10:31 | disposition home or self-care (01) ==
PROVIDERS: PCP Internal Medicine; Visit Provider Internal Medicine
DX: Z00.00 Encounter for general adult medical examination without abnormal findings (principal)

== ENCOUNTER → 2025-06-10 09:40 | Outpatient (BNVA) | payer OTHER, SELFPAY | PROVIDERS: PCP Internal Medicine; Visit Provider Internal Medicine | DX: Z00.00 Encounter for general adult medical examination without abnormal findings (principal); I10 Essential (primary) hypertension; G47.30 Sleep apnea, unspecified | CPT/HCPCS: 96127; 99396 ==

== ENCOUNTER 2025-06-18 13:10 | Outpatient (AMB) | payer OTHER, SELFPAY ==
--- NOTE | 2025-06-18 13:22 | A.OFFVIS_ITS ---
Vital Signs 06/18/25 13:23 Height 5 ft 11 in Weight 191 lb 9.307 oz BMI 26.7 BP 110/70 Blood Pressure Location Lt brachial Position Sitting Pulse 76 Pulse Source Pulse Oximeter Intake Visit Reasons: Abnormal electrocardiogram Admitting Counselor Required: Yes Admitting Counselor Name: voyce/palestinian Accompanied by: Self / Same As Patient Allergies amlodipine Allergy (Intermediate, Verified 06/10/25 10:04) edema Medication List - Last Reconciled 06/18/25 by Matt Meehan MD [Compression stockings As directed] ibuprofen 800 mg PO Q8H PRN losartan 25 mg PO DAILY 90 days syringe (disposable) (BD Bulk Syringe Slip Tip) As directed HPI Comments Details: The patient is a 39 year old male presenting with palpitations. He reports experiencing these palpitations daily. He is seeking reassurance after a prior visit with another provider ended quickly with a determination that he was fine, yet the symptoms persisted. Past medical history is significant for being told he had an enlarged heart 14 years ago in [place], though he denies any history of a heart attack. He also has sleep apnea for which he uses a mask, although compliance varies between four to eight hours per night. He denies any history of illicit drug use, alcohol consumption, or smoking. The patient reports he is able to walk and perform activities without issue. [facility] Medical History Asthma Migraine Fatty liver Hypercholesterolemia Vitamin B12 deficiency Obstructive sleep apnea Renal calculi Vitamin D deficiency Surgical History History of tooth extraction Family History Mother No problems noted. Father Hypertension Son In good health Son In good health Son In good health Sister In good health Brother No problems noted. Social History Household Members: Spouse and Family Household Members Other:: 5 Housing: House Do you presently have visiting nurse or other home services: No Alcohol intake: never Patient Tobacco Use Status: Never used Tobacco e-Cigarette/Vaping Use: Never Used Second Hand Smoke Exposure: No service: No Current occupational status: employed Current occupational exposures/hazards: No Cognitive needs: No Hearing needs: No Vision needs: Yes Review of Systems Const Denies chills, Denies fatigue, Denies fever(s), Denies frequent falls, Denies weakness, Denies weight gain and Denies weight loss ENT Denies dizziness Card Denies chest pain, Denies leg edema, Denies lightheadedness, Denies palpitations, Denies dyspnea, Denies dyspnea on exertion and Denies orthopnea Resp Denies cough, Denies dyspnea and Denies dyspnea on exertion GI Denies bloating and Denies change in bowel habits Musc Denies muscle weakness, Denies numbness and Denies tingling Neuro Denies dizziness, Denies frequent falls, Denies numbness, Denies tingling and Denies weakness Endo Denies fatigue and Denies palpitations Physical Exam Vital Signs: Last Vital Signs Pulse 76 06/18/25 13:23 BP 110/70 06/18/25 13:23 BMI result Body Mass Index 26.7 Const General: comfortable and no acute distress Orientation/consciousness: patient oriented x3 HEENT Other: Unremarkable Head: Yes normal to inspection Neck Neck: Yes normal visual inspection Chest Chest palpation & inspection: normal inspection of the chest Resp Auscultation: clear to auscultation bilaterally Cardio Palpation: normal PMI Heart sounds: S1 normal heart sound present, S2 normal heart sound present, no gallops, no murmurs and no rubs GI Palpation (GI): Soft to palpation Back/Spine/Pelvis Other: unremarkable Skin General skin exam: no rashes or lesions noted Neuro General: patient oriented x3 Extrem General: Yes normal to inspection Psych Mental Status: mental status grossly normal Assessment & Plan Assessment & Plan (1) Palpitations: Code(s): R00.2 - Palpitations Category: Medical (2) PVC (premature ventricular contraction): Code(s): I49.3 - Ventricular premature depolarization Category: Medical (3) Abnormal EKG: Code(s): R94.31 - Abnormal electrocardiogram [ECG] [EKG] Category: Medical Plan In the EKG, underlying rhythm is sinus at 70/Min; no ischemic changes; possible old inferior infarct versus normal variant. He has had the inferior infarct pattern going back many years. More prominent in some than the others. Could very well be a normal variant than a true infarct. In the Holter monitor, underlying rhythm is sinus with an average rate of 81/Min. Rare supraventricular ectopy. Ventricular ectopy with a burden of 1%. His palpitations are probably related to the PVCs. That in turn could be related to obstructive sleep apnea. Mainly reassurance; weight loss might help. Due to the history of enlarged heart per patient information as well as question of inferior infarct on the EKG, we will get an echocardiogram to look for any cardiomyopathy as well as wall motion abnormalities. We will follow up after that. Discussion Notes: I reviewed the heart monitor findings with the patient, showing him the normal heartbeats and the abnormal extra beats which are causing his sensation of palpitations. I explained that these extra beats are generally not serious, but can be related to his history of sleep apnea. Given his history of being told he had an enlarged heart and his desire for reassurance, I recommended a heart ultrasound (echocardiogram) to evaluate for any weakening or structural issues. I explained this test will help determine if there is any underlying cardiac issue that needs to be addressed. Patient was informed and verbally consented to the use of an ambient scribe for clinic note documentation during this visit. Patient Instructions: - Your feeling of palpitations is caused by extra heartbeats. - These extra beats are usually not serious, but can be related to your sleep apnea. - We will schedule you for a heart ultrasound, also called an echocardiogram, to check the size and strength of your heart. - This test will help ensure there is nothing serious to worry about. Coding Level of Care Code New Pt Level 4 (19326) Add On Problem Visit Only Diagnoses Palpitations R00.2 PVC (premature ventricular contraction) I49.3 Abnormal EKG R94.31
[2025-06-18 13:23] VITALS: BP 110/70; PULSE 76; BMI 26.7
--- OUTSIDE RECORDS SUMMARY | 2025-06-18 14:19 | XMS_ITS | Clinical Summary ---
Author Organization [employer] Address [address] [place] [address] Care Team Providers Care Rn Gyn Name Role Phone Unavailable Primary Care Provider [...] 3-dose series) 10/17/2002 COVID-19 Vaccine (1 - 2024-2 6 season) 2025 Influenza Vaccine (#1) 2025 Zoster [...]
--- OUTSIDE RECORDS SUMMARY | 2025-06-18 14:19 | XMS_ITS | Patient Health Record ---
Author Organization [facility] Address [address] [place] [address] Care Team Providers Care Fur Dry Cleaner Hand Name Role Phone Kelsi Huddleston MD Primary Care Provider Ming Salcedo [phone] Reason For Referral No Information Social History Social History Additional Details Category Social Info Options Details Miscellaneous: Marital status: Occupation: [employer] Section Notes: Nonsmoker; no alcohol Problems Problem Type SNOMED Code ICD Code Onset Dates Problem Status W/U Status Risk Notes Problem Blood in stool (924175434) Blood in stool (K92.1) Active confirmed Problem Diarrhea (82461950) Diarrhea, unspecified type (R19.7) Active confirmed Plan Of Treatment Future Test Test Name Order Date COLONOSCOPY 12/31/2015 Insurance Providers Payer Name Payer Address Payer Phone Subscriber Number Group Number Insured Name Patient Relationship to Insured Coverage Start Date Coverage End Date [facility] [address] [address] [place], [place] [id number] BHAVYA VENCES Self - patient is the insured MEDICAID OF [employer] [address] [place] [address] [id number] BHAVYA VENCES Self - patient is the insured Medical (General) History Medical History History ICD Code Denies [place],DM,CVA,renal disease Mild asthma--when he has a URI Kidney stones
--- OUTSIDE RECORDS SUMMARY | 2025-06-18 14:19 | XMS_ITS | Clinical Summary ---
Author Organization [facility] [employer] [facility] Address [address] [place] [address] Care Team Providers Care Burr Machine Operator Name Role Phone Unavailable Primary Care [...] Depression Screening 06/27/2024 COVID-19 Vaccine (1 - 2024-2 6 season) 2025 Influenza Vaccine (#1) 2025 RSV [...]
--- OUTSIDE RECORDS SUMMARY | 2025-06-18 14:19 | XMS_ITS | Patient Health Record ---
Author Organization [facility] Address [address] [place] [address] Care Team Providers Care Paint Booth Operator Name Role Phone ELZBIETA HUBBARD Primary Care Provide r [phone] Allergies No Known Allergies Reason For Referral No Information Medications Medication SIG (Take, Route, Frequency, Duration) Notes Start Date End Date Status Excedrin Extra Strength 250-250-65 MG Tablet 2 tablets Orally as needed only Active amLODIPine Besylate 5 MG Tablet 2 tablet Orally Once a day A ctive Social History Social History Additional Details Category Social Info Options Details General Occupation: [employer] exposure: no alcohol use: no drug use: no 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 Coffee/Tea/Soda: no Marital Status experience no smokers in household no Problems Problem Type SNOMED Code ICD Code Onset Dates Problem Status W/U Status Risk Notes Problem Essential hypertension (04661046) Essential hypertension (I10) Active confirmed Problem Obstructive sleep apnea syndrome (disorder) (63776966) Obstructive sleep apnea (adult) (pediatric) (G47.33) Active confirmed Problem Dependence on enabling machine or device (875531864) Dependence on other enabling machines and devices (Z99.89) Active confirmed Problem Anxiety (88023303) Anxiety (F41.9) Active confi rmed Problem Pure hypercholesterolemia (822624970) Pure hypercholesterolemia (E78.00) Active confirmed Plan Of Treatment Pending Test Test Name Order Date Exercise Stress Test: Anthony Protocol 04/2022 Insurance Providers Payer Name Payer Address Payer Phone Subscriber Number Group Number Insured Name Patient Relationship to Insured Coverage Start Date Coverage End Date [facility] [address] [address] [place] [address] [id number] BHAVYA VENCES Self - patient is the insured 2 Medical (General) History Medical History History ICD Code high cholesterol headaches kidney stones high blood pressure anxiety Surgical History Surgery Date(Month/Year)
--- OUTSIDE RECORDS SUMMARY | 2025-06-18 14:19 | XMS_ITS | Encounter Summary ---
Author Organization [facility] Address [address] [place] [address] [address] [place] [address] Care Team Providers Care Hot Repairman Name Role Phone Unavailable Primary Care Provider Unavailabl e Encounter Details Date Type Department Care Team (Latest Contact Info) Description 09/19/[address] [facility] CONVERSIONS Dental, Provider, DDS Social History [...]
== END 2025-06-18 13:39 | disposition home or self-care (01) ==
LOC: HO.HCS 13:11
PROVIDERS: Visit Provider Internal Medicine
DX: R00.2 Palpitations (principal); I49.3 Ventricular premature depolarization; R94.31 Abnormal electrocardiogram [ECG] [EKG]
CPT/HCPCS: 99214

== ENCOUNTER → 2025-06-18 13:10 | Outpatient (BNVA) | payer OTHER, SELFPAY | PROVIDERS: Visit Provider Internal Medicine | DX: R00.2 Palpitations (principal); I49.3 Ventricular premature depolarization; R94.31 Abnormal electrocardiogram [ECG] [EKG] | CPT/HCPCS: 99212 ==